=== PATIENT | male | born 1935 | race Caucasian/White ===

== ENCOUNTER 2017-06-04 11:18 | Emergency (ER) | payer OTHER ==
[2017-06-04] MEDS ORDERED: Sodium Chloride 0.9% 10 ML Syringe FLUSH PRN (11:47)
[2017-06-04] MEDS ORDERED: Dexamethasone 4 MG/ML SDV IVPUSH ONE (11:48)
[2017-06-04] MEDS ORDERED: HYDROmorphone 0.5 MG/0.5 ML Syringe IVPUSH ONE (11:48)
[2017-06-04] MEDS ORDERED: Cyclobenzaprine 10 MG Tab PO ONE (11:49)
--- NOTE | 2017-06-04 13:11 | EDM.PDOC ---
ED HPI GENERAL MEDICAL PROBLEM - General Chief Complaint: Back Pain or Injury Stated Complaint: LOW BACK/LEFT HIP PAIN Time Seen by Provider: 06/04/17 11:25 Source of Information: Reports: Patient History Limitations: Reports: No Limitations - History of Present Illness INITIAL COMMENTS - FREE TEXT/NARRATIVE: The patient presents with left low back pain. The patient has chronic low back pain. He had a steroid injection about 3 1/2 months ago. For the last few days , the pain has gotten worse. He does not remember a specific instance that he may have aggravated it. He has no numbness or weakness. He has no bowel or bladder problems. Onset: Gradual Duration: Week(s): Location: Reports: Back (Left) Quality: Reports: Sharp Severity: Moderate Improves with: Reports: Immobilization Worsens with: Reports: Movement Associated Symptoms: Reports: No Other Symptoms Left Hip Pain Score (Numeric/FACES): 10 - Related Data Allergies Allergy/AdvReac Type Severity Reaction Status Date / Time No Known Allergies Allergy Verified 05/19/17 07:10 Home Meds: Home Meds Allopurinol [Zyloprim] 1 tab PO BID 06/04/17 [History] Aspirin 1 tab PO DAILY 06/04/17 [History] Calcitriol [Rocaltrol] 1 tab PO ASDIRECTED 06/04/17 [History] Cholecalciferol (Vitamin D3) [Vitamin D3] 1 tab PO DAILY 06/04/17 [History] Cyclobenzaprine [Flexeril] 10 mg PO TID PRN #20 tablet 06/04/17 [Rx] FA/Lycopene/Lut/MV,Ca,Iron,Min [Centrum] 1 tab PO DAILY 06/04/17 [History] Lisinopril 1 tab PO DAILY 06/04/17 [History] Metoprolol Tartrate 25 mg PO BID 06/04/17 [History] Omeprazole 20 mg PO BIDAC 06/04/17 [History] Rosuvastatin Calcium 40 mg PO DAILY 06/04/17 [History] Tamsulosin [Flomax] 1 tab PO DAILY 06/04/17 [History] Thiamine Mononitrate [Vitamin B-1] 1 tab PO DAILY 06/04/17 [History] Past Medical History HEENT History: Reports: Hard of Hearing Cardiovascular History: Reports: Aneurysm, High Cholesterol, Hypertension Gastrointestinal History: Reports: GERD Genitourinary History: Reports: BPH Musculoskeletal History: Reports: Back Pain, Chronic, Gout - Past Surgical History Cardiovascular Surgical History: Reports: Aneurysm Social & Family History - Tobacco Use Smoking Status *Q: Never Smoker Second Hand Smoke Exposure: Yes - Caffeine Use Caffeine Use: Reports: Coffee - Recreational Drug Use Recreational Drug Use: No ED ROS GENERAL - Review of Systems Review Of Systems: See Below Constitutional: Reports: No Symptoms HEENT: Reports: No Symptoms Respiratory: Reports: No Symptoms Cardiovascular: Reports: No Symptoms Endocrine: Reports: No Symptoms GI/Abdominal: Reports: No Symptoms : Reports: No Symptoms Musculoskeletal: Reports: Back Pain (Left lower) Skin: Reports: No Symptoms ED EXAM,LOWER BACK PAIN/INJURY - Physical Exam Exam: See Below Exam Limited By: No Limitations General Appearance: Alert, No Apparent Distress Ears: Normal External Exam Throat/Mouth: Normal Inspection Head: Atraumatic, Normocephalic Neck: Normal Inspection Respiratory/Chest: No Respiratory Distress, Lungs Clear, Normal Breath Sounds Cardiovascular: Regular Rate, Rhythm, No Edema, No Murmur GI/Abdominal: Soft, Non-Tender, No Organomegaly, No Mass Back Exam: Other (Pain upon palpation to the left lower back) Neurological: Alert, No Motor/Sensory Deficits, Oriented x 3 Course - Vital Signs Last Recorded V/S: Last Vital Signs Temp 97.8 F 06/04/17 11:24 Pulse 72 06/04/17 11:24 Resp 18 06/04/17 11:24 BP 119/69 06/04/17 11:24 Pulse Ox 99 06/04/17 11:24 - Orders/Labs/Meds Orders: Active Orders 24 hr Category Date Time Status Peripheral IV Care [RC] . DIRECTED Care 06/04/17 11:47 Active Sodium Chloride 0.9% [Saline Flush] Med 06/04/17 11:47 Active 10 ml FLUSH ASDIRECTED PRN Peripheral IV Insertion Adult [OM.PC] Routine Oth 06/04/17 11:47 Ordered Medication Orders Sodium Chloride (Saline Flush) 10 ml FLUSH ASDIRECTED PRN PRN Reason: Keep Vein Open Last Admin: 06/04/17 12:09 Dose: 10 ml Meds: Medications Generic Name Dose Route Start Last Admin Trade Name Freq PRN Reason Stop Dose Admin Sodium Chloride 10 ml 06/04/17 11:47 06/04/17 12:09 Saline Flush FLUSH 10 ml ASDIRECTED PRN Administration Keep Vein Open Discontinued Medications Generic Name Dose Route Start Last Admin Trade Name Diane PRN Reason Stop Dose Admin Cyclobenzaprine HCl 10 mg 06/04/17 11:49 06/04/17 12:08 Flexeril PO 06/04/17 11:50 10 mg ONETIME ONE Administration Dexamethasone 8 mg 06/04/17 11:48 06/04/17 12:07 Dexamethasone IVPUSH 06/04/17 11:49 8 mg ONETIME ONE Administration Hydromorphone HCl 0.5 mg 06/04/17 11:48 Dilaudid IVPUSH 06/04/17 11:49 ONETIME ONE - Re-Assessments/Exams Free Text/Narrative Re-Assessment/Exam: 06/04/17 13:10 I ordered an IV saline lock, solu-medrol 125mg IV, dilaudid 0.5mg IV, and flexeril 10mg PO. He did good with the solu-medrol and flexeril. He did not want the dilaudid. Departure - Departure Time of Disposition: 13:15 Disposition: Home, Self-Care 01 Condition: Good Clinical Impression: Low back pain Qualifiers: Chronicity: chronic Back pain laterality: left Sciatica presence: with sciatica Sciatica laterality: sciatica of left side Qualified Code(s): M54.42 - Lumbago with sciatica, left side; G89.29 - Other chronic pain - Discharge Information Prescriptions: Cyclobenzaprine [Flexeril] 10 mg PO TID PRN #20 tablet PRN Reason: Pain Referrals: Yasir Alvarez MD [Primary Care Provider] - Additional Instructions: Take the flexeril every 8 hours as needed for low back pain as needed. Keep taking your other medications as prescribed. Please return if you are worse. Follow up with your doctor. - My Orders Last 24 Hours: My Active Orders 06/04/17 11:47 Peripheral IV Care [RC] . DIRECTED Sodium Chloride 0.9% [Saline Flush] 10 ml FLUSH ASDIRECTED PRN Peripheral IV Insertion Adult [OM.PC] Routine - Assessment/Plan Last 24 Hours: My Active Orders 06/04/17 11:47 Peripheral IV Care [RC] . DIRECTED Sodium Chloride 0.9% [Saline Flush] 10 ml FLUSH ASDIRECTED PRN Peripheral IV Insertion Adult [OM.PC] Routine
[2017-06-04] MEDS ORDERED: Acetaminophen/HYDROcodone 325-5 MG Tab PO ONE (14:00)
[2017-06-04 14:05] VITALS: BP 156/91
== END 2017-06-04 14:00 | disposition home or self-care (01) ==
LOC: EDSEX → JD.ED 11:18 → MERGE 11:18 → JD.ED 14:00
DX: M54.42 Lumbago with sciatica, left side (principal); G89.29 Other chronic pain; E78.00 Pure hypercholesterolemia, unspecified; I10 Essential (primary) hypertension; K21.9 Gastro-esophageal reflux disease without esophagitis; Z79.82 Long term (current) use of aspirin; Z79.899 Other long term (current) drug therapy
CPT/HCPCS: 96374; 99283; A9270; J1100; J7050

== ENCOUNTER 2018-10-27 16:29 | Inpatient (IN) | payer MEDICARE ==
--- NOTE | 2018-10-27 17:34 | EDM.PDOC ---
ED HPI GENERAL MEDICAL PROBLEM - General Chief Complaint: Neurological Problem Stated Complaint: [facility] Time Seen by Provider: 10/27/18 17:12 Source of Information: Reports: Family (Daughter), RN Notes Reviewed History Limitations: Reports: Physical Impairment (Patient has advanced dementia ) - History of Present Illness INITIAL COMMENTS - FREE TEXT/NARRATIVE: According to the patient's daughter, the patient has a history of both Parkinson disease and Alzheimer dementia. He has been falling nearly daily for the past 6 months, and daily for the past 2-3 weeks. He sometimes suffers skin tears. He fell again today, but appears to be uninjured. The daughter states that arrangements have been made for the patient to go to [facility], however, some additional paperwork to have Medicaid pay for it still needs to be done. The patient's daughter does not feel , however, that the patient can safely remain at home any longer. She cannot say specifically why she brought her father to the ED today, as opposed to yesterday or the day before, only that she does not feel that he can remain at home any longer. The patient's PCP is Dr. Alvarez. The patient's Neurologist is Dr. Carlin. Headache Pain Score (Numeric/FACES): 3 - Related Data Allergies Allergy/AdvReac Type Severity Reaction Status Date / Time No Known Allergies Allergy Verified 10/27/18 16:32 Home Meds: Home Meds Allopurinol [Zyloprim] 1 tab PO BID 06/04/17 [History] Aspirin 1 tab PO DAILY 06/04/17 [History] Calcitriol [Rocaltrol] 1 tab PO ASDIRECTED 06/04/17 [History] Cholecalciferol (Vitamin D3) [Vitamin D3] 1 tab PO DAILY 06/04/17 [History] Cyclobenzaprine [Flexeril] 10 mg PO TID PRN #20 tablet 06/04/17 [Rx] FA/Lycopene/Lut/MV,Ca,Iron,Min [Centrum] 1 tab PO DAILY 06/04/17 [History] Lisinopril 1 tab PO DAILY 06/04/17 [History] Metoprolol Tartrate 25 mg PO BID 06/04/17 [History] Omeprazole 20 mg PO BIDAC 06/04/17 [History] Rosuvastatin Calcium 40 mg PO DAILY 06/04/17 [History] Tamsulosin [Flomax] 1 tab PO DAILY 06/04/17 [History] Thiamine Mononitrate [Vitamin B-1] 1 tab PO DAILY 06/04/17 [History] Past Medical History Cardiovascular History: Reports: Aneurysm (AAA, s/p graft), High Cholesterol, Hypertension Gastrointestinal History: Reports: GERD Genitourinary History: Reports: BPH Musculoskeletal History: Reports: Arthritis, Back Pain, Chronic, Gout Neurological History: Reports: Alzheimers Disease, Parkinson's - Infectious Disease History Infectious Disease History: Reports: Chicken Pox, Measles, Mumps - Past Surgical History Cardiovascular Surgical History: Reports: AAA Repair (graft) Neurological Surgical History: Reports: Laminectomy (lumbar) Social & Family History - Tobacco Use Smoking Status *Q: Former Smoker (smoked in his 20s) - Caffeine Use Caffeine Use: Reports: Coffee - Alcohol Use Alcohol Use History: Yes Alcohol Use Frequency: Rarely - Recreational Drug Use Recreational Drug Use: No - Living Situation & Occupation Living situation: Reports: , with Family (Daughter) Occupation: Retired ED ROS GENERAL - Review of Systems Review Of Systems: ROS reveals no pertinent complaints other than HPI. ED EXAM, GENERAL - Physical Exam Exam: See Below Exam Limited By: No Limitations General Appearance: WD/WN, No Apparent Distress, Other (Somnolent but arousable. Fell asleep during my examination.) Eye Exam: Bilateral Eye: EOMI, Normal Inspection Ears: Normal External Exam Nose: Normal Inspection Throat/Mouth: Normal Inspection, Normal Lips, No Airway Compromise Head: Atraumatic, Normocephalic Neck: Normal Inspection Respiratory/Chest: No Respiratory Distress, Lungs Clear, Normal Breath Sounds, No Accessory Muscle Use Cardiovascular: Normal Peripheral Pulses, No Gallop, No JVD, No Murmur, No Rub, Irregularly Irregular (regular rate) Peripheral Pulses: 4+: Radial (L), Radial (R) GI/Abdominal: Normal Bowel Sounds, Soft, Non-Tender, No Organomegaly, No Distention, No Abnormal Bruit, No Mass (Male) Exam: Deferred Rectal (Males) Exam: Deferred Extremities: Normal Inspection, Normal Range of Motion, Normal Capillary Refill Neurological: Inattentive, Confused, Other (Somnolent, but arousable) Psychiatric: Other (Unable to assess) Skin Exam: Warm, Dry, Normal Color, No Rash Course - Vital Signs Last Recorded V/S: Last Vital Signs Temp 36.2 C 10/27/18 16:37 Pulse 60 10/27/18 16:37 Resp 16 10/27/18 16:37 BP 133/77 10/27/18 16:37 Pulse Ox 100 10/27/18 16:37 - Orders/Labs/Meds Orders: Active Orders 24 hr Category Date Time Status Urinary Catheter Assessment [RC] ASDIRECTED Care 10/27/18 18:37 Active Urinary Catheter Insertion [Insert Urinary Catheter] [ Care 10/27/18 18:45 Ordered OM.PC] Q24H Labs: Laboratory Tests 10/27/18 Range/Units 18:36 Urine Color Yellow (Yellow) Urine Appearance Clear (Clear) Urine pH 6.0 (5.0-8.0) Ur Specific [place] 1.025 (1.005-1.030) Urine Protein Trace H (Negative) Urine Glucose (UA) Negative (Negative) Urine Ketones Negative (Negative) Urine Occult Blood Negative (Negative) Urine Nitrite Negative (Negative) Urine Bilirubin Negative (Negative) Urine Urobilinogen 1.0 (0.2-1.0) Ur Leukocyte Esterase Negative (Negative) Urine RBC 0-5 (0-5) /hpf Urine WBC 0-5 (0-5) /hpf Ur Epithelial Cells 0-5 (0-5) /hpf Urine Bacteria Occasional (FEW) /hpf Urine Mucus Few (FEW) /hpf - Re-Assessments/Exams Free Text/Narrative Re-Assessment/Exam: 10/27/18 17:33 The patient's daughter had the patient brought to the ED for group home placement, due to increasingly frequent falls and unsafe conditions at home. There are no acute medical issues, and I see no need for any tests to be done at this time. Unfortunately, our hospital social worker, [place], has likely left for the day. We will see if we can contact her by phone, to see what might be able to be done tonight. 10/27/18 18:22 [place] the hospital social worker came in and evaluated the patient, and discussed the case with Dr. Rose. Dr. Rose would like us to obtain a CT scan of the head and a urinalysis by quick catheter. 10/27/18 19:26 CT of the head without contrast is read by Dr. Maier as: 1. Acute subdural hematoma superimposed upon chronic left-sided subdural hematoma. This is an interval change from prior head CT study. This finding causes mild midline shift of approximately 7 mm. Thickness of the subdural collection is approximately 1 cm. 2. Senescent change as noted above which is similar to prior head CT study. 3. Increasing mucosal thickening within the paranasal sinuses most likely due to worsening chronic sinusitis. The urinalysis is normal. 10/27/18 19:[address] images, as well as those from 08/07/2018, as well as Dr. Maier's report from 08/07/2018. At that time, the patient's CT found only senescent changes with no acute abnormalities. There was no subdural hematoma. Today's CT scan shows an acute on chronic subdural hematoma, although the chronic portion appears to have occurred since 08/07/2018. I discussed the CT findings with the patient's daughter, Saskia Nguyen, at 19: 38. She would like me to discuss the case with a Neurosurgeon at [facility], to see if the patient would be a surgical candidate, and, if so, to have the patient transported the patient to [facility]. If the Neurosurgeon declines, then the patient will be placed into observation at this facility, as originally planned. I then had the CT images pushed to [facility]. 10/27/18 19:57 Case discussed with Benjamin at [facility] at 19:38. Case then discussed with Dr. Matamoros, Neurosurgeon at [facility], at 19:45. The CT images were not yet available to him, however, based on the description of the patient and his CT, he did not think the patient would likely be a good candidate for neurosurgery, however, he wanted to see the images before making a final decision. 10/27/18 20:[address] Matamoros at 20:07. He did not feel that neurosurgery would benefit the patient. He noted that while there is some new and old blood, the majority of the blood is old. He felt that the patient would likely have difficulty with the anesthesia, and then would not be able to participate meaningfully with his recovery. He felt that the most important thing was to keep the patient from falling and hitting his head. He suggested that a repeat CT scan could be performed in a week, to see if there is any change, but he felt that even if the patient were transferred to their facility, he would only recommend observing the patient for a week. The above was then discussed with the patient's daughter, Saskia, at 20:09. She expressed understanding. We will proceed with the original plan of reason the patient into observation here. 10/27/18 20:[address] Rose at 20:15. He accepted the patient for placement into observation. 10/27/18 20:19 Departure - Departure Time of Disposition: 20:19 Disposition: Refer to Observation Clinical Impression: Failure to thrive in adult, Fall at home, Dementia, Acute on chronic intracranial subdural hematoma, Parkinson disease - Discharge Information *PRESCRIPTION DRUG MONITORING PROGRAM REVIEWED*: Not Applicable *COPY OF PRESCRIPTION DRUG MONITORING REPORT IN PATIENT TRE: Not Applicable Referrals: Yasir Alvarez MD [Primary Care Provider] - Forms: ED Department Discharge - My Orders Last 24 Hours: My Active Orders 10/27/18 18:37 Urinary Catheter Assessment [RC] ASDIRECTED 10/27/18 18:45 Urinary Catheter Insertion [Insert Urinary Catheter] [OM.PC] Q24H - Assessment/Plan Last 24 Hours: My Active Orders 10/27/18 18:37 Urinary Catheter Assessment [RC] ASDIRECTED 10/27/18 18:45 Urinary Catheter Insertion [Insert Urinary Catheter] [OM.PC] Q24H
--- NOTE | 2018-10-27 19:06 | CT ---
Head CT Technique: Multiple axial sections through the brain were obtained. Intravenous contrast was utilized. Comparison: Previous head CT study of 08/07/18. Findings: Acute blood is seen in a subpleural location within the left brain. There is also chronic low density subdural hematoma being seen. Overall thickness of this finding is approximately 1 cm. Mild midline shift is seen by approximately 7 mm. Ventricles along with basal cisterns and sulci over the convexities are moderately prominent. Diminished density is noted within portions of the periventricular white matter compatible with small vessel ischemic demyelination change. Old lacunar infarcts are noted within the basal ganglia. No other abnormal parenchymal densities are seen. Diffuse atherosclerotic calcification is seen within the left vertebral vessel as well as within the carotid siphon. Bone window settings were reviewed which shows mild mucosal thickening within the ethmoid and maxillary sinuses as well as mucosal thickening within the right frontal sinus. No acute calvarial abnormality is seen. Impression: 1. Acute subdural hematoma superimposed upon chronic left-sided subdural hematoma. This is an interval change from prior head CT study. This finding causes mild midline shift of approximately 7 mm. Thickness of the subdural collection is approximately 1 cm. 2. Senescent change as noted above which is similar to prior head CT study. 3. Increasing mucosal thickening within the paranasal sinuses most likely due to worsening chronic sinusitis. Diagnostic code #5
--- NOTE | 2018-10-27 21:27 | PCM.HP ---
H&P History of Present Illness - General Date of Service: 10/27/18 Admit Problem/Dx: Admission Diagnosis/Problem Admission Diagnosis/Problem Failure to thrive in adult Source of Information: Family, Provider History Limitations: Reports: Altered Mental Status (h/o Alzheimers) - History of Present Illness Initial Comments - Free Text/Narative: This is a 83 yo male with past medical h/o Alzheimer's Dementia, Parkinson's, AAA s/p graft, HTN, HLD, GERD, BPH, Arthritis, Back pain, Gout who comes in for subdural hematoma and failure to thrive. History obtained in ED from daughter. No current symptoms. Pt falls nearly daily x 6 months, daily x 2-3 weeks. Pt is set up to go to [facility], but is awaiting Medicaid paperwork. The pt's daughter doesn't feel he can safely remain at home any longer. His initial workup in the ED shows CT head shows acute subdural hematoma superimposed upon chronic left-sided subdural hematoma. UA unimpressive for UTI. He is subsequently admitted to the medical floor for Observation. He is a DNR/ DNI. PCP is Dr. Alvarez. Headache Pain Score (Numeric/FACES): 3 - Related Data Allergies/Adverse Reactions: Allergies Allergy/AdvReac Type Severity Reaction Status Date / Time No Known Allergies Allergy Verified 10/27/18 16:32 Home Medications: Home Meds Allopurinol [Zyloprim] 1 tab PO BID 06/04/17 [History] Aspirin 1 tab PO DAILY 06/04/17 [History] Calcitriol [Rocaltrol] 1 tab PO ASDIRECTED 06/04/17 [History] Cholecalciferol (Vitamin D3) [Vitamin D3] 1 tab PO DAILY 06/04/17 [History] Cyclobenzaprine [Flexeril] 10 mg PO TID PRN #20 tablet 06/04/17 [Rx] FA/Lycopene/Lut/MV,Ca,Iron,Min [Centrum] 1 tab PO DAILY 06/04/17 [History] Lisinopril 1 tab PO DAILY 06/04/17 [History] Metoprolol Tartrate 25 mg PO BID 06/04/17 [History] Omeprazole 20 mg PO BIDAC 06/04/17 [History] Rosuvastatin Calcium 40 mg PO DAILY 06/04/17 [History] Tamsulosin [Flomax] 1 tab PO DAILY 06/04/17 [History] Thiamine Mononitrate [Vitamin B-1] 1 tab PO DAILY 06/04/17 [History] Past Medical History HEENT History: Reports: Hard of Hearing Cardiovascular History: Reports: Aneurysm (AAA, s/p graft), High Cholesterol, Hypertension Gastrointestinal History: Reports: GERD Genitourinary History: Reports: BPH Musculoskeletal History: Reports: Arthritis, Back Pain, Chronic, Gout Neurological History: Reports: Alzheimers Disease, Parkinson's Other Neuro History: frequent falls and multiple times hitting head. Many falls unwitnessed. Daughter expressing concerns of pt's safety living at home Dermatologic History: Reports: Other (See Below) Other Dermatologic History: multiple small skin tears - Infectious Disease History Infectious Disease History: Reports: Chicken Pox, Measles, Mumps - Past Surgical History Cardiovascular Surgical History: Reports: AAA Repair (graft) Neurological Surgical History: Reports: Laminectomy (lumbar) Social & Family History - Tobacco Use Smoking Status *Q: Former Smoker (smoked in his 20s) - Caffeine Use Caffeine Use: Reports: Coffee - Recreational Drug Use Recreational Drug Use: No - Living Situation & Occupation Living situation: Reports: , with Family (Daughter) Occupation: Retired H&P Review of Systems - Review of Systems: Review Of Systems: Unable To Obtain (pt is confused d/t Alzheimer's) Psychiatric: Reports: Confusion Neurological: Reports: Confusion Exam - Exam Exam: See Below - Vital Signs Vital Signs: Last Vital Signs Temp 97.1 F 10/27/18 16:37 Pulse 83 10/27/18 20:30 Resp 15 10/27/18 20:30 BP 127/88 10/27/18 20:30 Pulse Ox 100 10/27/18 20:30 Weight: 195 lb - Exam Quality Assessment: DVT Prophylaxis General: Alert, Lethargic HEENT: Conjunctiva Clear, EACs Clear, EOMI, Hearing Intact, Mucosa Moist & [place] , Nares Patent, Normal Nasal Septum, Posterior Pharynx Clear, PERRLA Neck: Supple, Trachea Midline, 2 Lungs: Clear to Auscultation, Normal Respiratory Effort Cardiovascular: Regular Rate, Irregular Rhythm GI/Abdominal Exam: Normal Bowel Sounds, Soft, Non-Tender, No Organomegaly, No Distention, No Abnormal Bruit, No Mass, Pelvis Stable (Male) Exam: Deferred Rectal (Males) Exam: Deferred Back Exam: Normal Inspection Extremities: Normal Inspection, Normal Range of Motion, Non-Tender, No Pedal Edema, Normal Capillary Refill Peripheral Pulses: 4+: Posterior Tibial (L), Posterior Tibial (R), Dorsalis Pedis (L), Dorsalis Pedis (R) Skin: Warm (Confused, Lethargic), Dry, Intact Psychiatric: Alert, Other (Confused, Lethargic) - Patient Data Lab Results Last 24 hrs: Laboratory Results - last 24 hr 10/27/18 Range/Units 18:36 Urine Color Yellow (Yellow) Urine Appearance Clear (Clear) Urine pH 6.0 (5.0-8.0) Ur Specific [place] 1.025 (1.005-1.030) Urine Protein Trace H (Negative) Urine Glucose (UA) Negative (Negative) Urine Ketones Negative (Negative) Urine Occult Blood Negative (Negative) Urine Nitrite Negative (Negative) Urine Bilirubin Negative (Negative) Urine Urobilinogen 1.0 (0.2-1.0) Ur Leukocyte Esterase Negative (Negative) Urine RBC 0-5 (0-5) /hpf Urine WBC 0-5 (0-5) /hpf Ur Epithelial Cells 0-5 (0-5) /hpf Urine Bacteria Occasional (FEW) /hpf Urine Mucus Few (FEW) /hpf - Problem List (1) Acute on chronic intracranial subdural hematoma SNOMED Code(s): 87281840 ICD Code: I62.01 - NONTRAUMATIC ACUTE SUBDURAL HEMORRHAGE; I62.03 - NONTRAUMATIC CHRONIC SUBDURAL HEMORRHAGE Status: Acute Priority: High Current Visit: Yes (2) Dementia SNOMED Code(s): 16995787 ICD Code: F03.90 - UNSPECIFIED DEMENTIA WITHOUT BEHAVIORAL DISTURBANCE Status: Chronic Priority: Medium Current Visit: Yes Qualifiers: Dementia type: Alzheimer's disease Alzheimer's disease onset: unspecified onset Dementia behavioral disturbance: without behavioral disturbance Qualified Code(s): G30.9 - Alzheimer's disease, unspecified; F02.80 - Dementia in other diseases classified elsewhere without behavioral disturbance (3) Failure to thrive in adult SNOMED Code(s): 978081801 ICD Code: R62.7 - ADULT FAILURE TO THRIVE Status: Acute Priority: High Current Visit: Yes (4) Fall at home SNOMED Code(s): 74145822 ICD Code: W19.XXXA - UNSPECIFIED FALL, INITIAL ENCOUNTER; Y92.009 - UNSP PLACE IN UNSP NON-INSTITUT (PRIVATE) RESIDENCE PLACE Status: Acute Priority: High Current Visit: Yes Qualifiers: Encounter type: initial encounter Qualified Code(s): W19.XXXA - Unspecified fall, initial encounter; Y92.009 - Unspecified place in unspecified non-institutional (private) residence as the place of occurrence of the external cause (5) Parkinson disease SNOMED Code(s): 24654826 ICD Code: G20 - PARKINSON'S DISEASE Status: Chronic Priority: Medium Current Visit: Yes Problem List Initiated/Reviewed/Updated: Yes Orders Last 24hrs: Active Orders 24 hr Category Date Time Status Admission Status [Patient Status] [ADT] Routine ADT 10/27/18 20:49 Active Urinary Catheter Insertion [Insert Urinary Catheter] [ Care 10/27/18 18:45 Ordered OM.PC] Q24H Assessment/Plan Comment:: Assessment/Plan: Acute: Subdural Hematoma * Acute on Chronic (chronic portion appears to have occurred after previous CT on 08/07/2018) * Risk Factor: Parkinson's, Falls nearly daily x 6 months, daily x 2-3 weeks * CT head in ED: * 1. Acute subdural hematoma superimposed upon chronic left-sided subdural hematoma. This is an interval change from prior head CT study. This finding causes mild midline shift of approximately 7 mm. Thickness of the subdural collection is approximately 1 cm. * 2. Senescent change as noted above which is similar to prior head CT study. * 3. Increasing mucosal thickening within the paranasal sinuses most likely due to worsening chronic sinusitis. * Case discussed with Dr. Matamoros, Neurosurgeon at [facility] in ED: * Pt not good candidate for neurosurgery--> Pt would likely have difficulty w/ anesthesia and wouldn't be able to participate meaningfully w/ his recovery * Majority of the blood seems to be old * Most important thing is to keep pt from falling and hitting his head * Repeat CT scan in 1 week * Fall precautions; Up with assistance Failure to Thrive * Risk Factors: Alzheimer's Dementia, Parkinson's * Falls nearly daily x 6 months, daily x 2-3 weeks * Pt is set up to go to [facility], awaiting Medicaid paperwork * The pt's daughter doesn't feel he can safely remain at home any longer * PT/OT * CM/SW Chronic: Alzheimer's Dementia Parkinson's AAA s/p graft HTN HLD GERD BPH Arthritis Back pain Gout Plan: Admit to Observation Routine AM Labs DVT/GI prophylaxis CM/SW PT/OT Code Status: DNR/DNI; PCP: Dr. Alvarez The patient's Neurologist is Dr. Carlin
[2018-10-27] MEDS ORDERED: Promethazine 25 MG Tab PO PRN (21:52)
[2018-10-27] MEDS ORDERED: Promethazine 6.25 MG in Sodium Chloride 0.9% 50 ML IV PRN (21:52)
[2018-10-27] MEDS ORDERED: Bisacodyl 5 MG Tab PO PRN (21:55)
[2018-10-27] MEDS ORDERED: Polyethylene Glycol 3350 Powder 17 GM Packet PO PRN (21:55)
[2018-10-27] MEDS ORDERED: Magnesium Hydroxide 400 MG/5 ML Susp 30 ML Cup PO PRN (21:55)
[2018-10-27] MEDS ORDERED: Calcitriol 0.25 MCG Cap PO SCH (22:00)
[2018-10-28] MEDS: Pantoprazole 40 MG Tab.CR PO SCH (06:30)
[2018-10-28] MEDS: Tamsulosin 0.4 MG Cap.ER PO SCH (08:42)
[2018-10-28] MEDS: Metoprolol Tartrate 25 MG Tab PO SCH ×3 (08:42→21:45)
[2018-10-28] MEDS: Allopurinol 100 MG Tab PO SCH ×3 (08:43→21:46)
[2018-10-28] MEDS: Calcitriol 0.25 MCG Cap PO SCH (08:43)
[2018-10-28] MEDS: Thiamine 100 MG Tab PO SCH (08:43)
[2018-10-28] MEDS: Lisinopril 5 MG Tab PO SCH (08:43)
[2018-10-28] MEDS: Cholecalciferol (Vitamin D3) 1,000 Unit Tab PO SCH (08:44)
[2018-10-28] MEDS: Multivitamins with Minerals/Folic Acid/Lutein/Zeaxanth Tab PO SCH (08:44)
[2018-10-28] MEDS: Rosuvastatin 10 MG Tab PO SCH (08:44)
[2018-10-28] MEDS: Potassium Chloride 20 MEQ Tab.ER PO SCH ×3 (11:42→21:45)
--- NOTE | 2018-10-28 15:59 | PCM.PN ---
- General Info Date of Service: 10/28/18 Admission Dx/Problem (Free Text): Admission Diagnosis/Problem Admission Diagnosis/Problem Failure to thrive in adult Subjective Update: In to see Олег. He is sitting up in a chair sleeping. He is difficult to arouse and when I ask him questions or ask him to open his eyes, he is very lethargic and confused. Eventually with the help of nursing we were able to get him to be more responsive and we were able to help assist him into bed. He then look much more comfortable. Unable to attain ROS d/t his current state. I called his daughter Saskia to tell her of his current state, and she said that this was about the time that he sundowns and these are all normal behaviors for him. I also went over his code status with her, as he had told nursing last night he was a Full Code. She was able to go through her records at home and found that he is actually a DNR/DNI. Code status will therefore be changed. No other concerns from nursing at this time. [place] from states that [facility] has refused to accept him to their facility. She will start looking into other options as this time as he is unable to go home at this time and is unable to be taken care of. Functional Status: Reports: Pain Controlled, Tolerating Diet, Ambulating (with assistance with walker), Urinating - Review of Systems Neurological: Reports: Confusion Psychiatric: Reports: Confusion Systems Review Comment:: Unable to obtain d/t confusion/sun-downing - Patient Data Vitals - Most Recent: Last Vital Signs Temp 98.4 F 10/28/18 12:59 Pulse 65 10/28/18 12:59 Resp 20 10/28/18 12:59 BP 121/66 10/28/18 12:59 Pulse Ox 98 10/28/18 12:59 Weight - Most Recent: 174 lb 3.2 oz I&O - Last 24 Hours: Intake & Output 10/28/18 10/28/18 10/28/18 06:59 14:59 22:59 Intake Total 800 600 Output Total 300 Balance 500 600 Lab Results Last 24 Hours: Laboratory Results - last 24 hr 10/27/18 10/28/18 10/28/18 Range/Units 18:36 05:59 05:59 WBC 5.53 (4.23-9.07) K/mm3 RBC 3.73 L (4.63-6.08) M/mm3 Hgb 11.3 L (13.7-17.5) gm/L Hct 34.9 L (40.1-51.0) % MCV 93.6 H (79.0-92.2) fl MCH 30.3 (25.7-32.2) pg MCHC 32.4 (32.2-35.5) g/dl RDW Std Deviation 48.1 H (35.1-43.9) fL Plt Count 247 (163-337) K/mm3 MPV 9.6 (9.4-12.3) fl Neut % (Auto) 63.5 (34.0-67.9) % Lymph % (Auto) 22.1 (21.8-53.1) % [place] % (Auto) 10.5 (5.3-12.2) % Eos % (Auto) 2.9 (0.8-7.0) Baso % (Auto) 0.5 (0.1-1.2) % Neut # (Auto) 3.51 (1.78-5.38) K/mm3 Lymph # (Auto) 1.22 L (1.32-3.57) K/mm3 [place] # (Auto) 0.58 (0.30-0.82) K/mm3 Eos # (Auto) 0.16 (0.04-0.54) K/mm3 Baso # (Auto) 0.03 (0.01-0.08) K/mm3 Sodium 146 H (136-145) mEq/L Potassium 2.9 L (3.5-5.1) mEq/L Chloride 110 H (98-107) mEq/L Carbon Dioxide 26 (21-32) mEq/L Anion Gap 12.9 (5-15) BUN 20 H (7-18) mg/dL Creatinine 0.9 (0.7-1.3) mg/dL Est Cr Clr Drug Dosing 68.26 mL/min Estimated GFR (MDRD) > 60 (>60) mL/min BUN/Creatinine Ratio 22.2 H (14-18) Glucose 84 (83-115) mg/dL Calcium 8.8 (8.5-10.1) mg/dL Magnesium 1.9 (1.8-2.4) mg/dl Urine Color Yellow (Yellow) Urine Appearance Clear (Clear) Urine pH 6.0 (5.0-8.0) Ur Specific [place] 1.025 (1.005-1.030) Urine Protein Trace H (Negative) Urine Glucose (UA) Negative (Negative) Urine Ketones Negative (Negative) Urine Occult Blood Negative (Negative) Urine Nitrite Negative (Negative) Urine Bilirubin Negative (Negative) Urine Urobilinogen 1.0 (0.2-1.0) Ur Leukocyte Esterase Negative (Negative) Urine RBC 0-5 (0-5) /hpf Urine WBC 0-5 (0-5) /hpf Ur Epithelial Cells 0-5 (0-5) /hpf Urine Bacteria Occasional (FEW) /hpf Urine Mucus Few (FEW) /hpf Med Orders - Current: Current Medications Acetaminophen (Tylenol) 650 mg PO Q4H PRN PRN Reason: Pain (Mild 1-3)/fever Allopurinol (Zyloprim) 100 mg PO BID [facility] Last Admin: 10/28/18 08:43 Dose: 100 mg Bisacodyl (Dulcolax) 5 mg PO DAILY PRN PRN Reason: Constipation Calcitriol (Rocaltrol) 0.25 mcg PO SuTh@0900 [facility] Last Admin: 10/28/18 08:43 Dose: 0.25 mcg Cholecalciferol (Vitamin D3) 2,000 units PO DAILY [facility] Last Admin: 10/28/18 08:44 Dose: 2,000 units Cyclobenzaprine HCl (Flexeril) 10 mg PO TID PRN PRN Reason: Muscle Spasm Docusate Sodium (Colace) 100 mg PO BID PRN PRN Reason: Constipation Promethazine HCl 6.25 mg/ (Sodium Chloride) 50.25 mls @ 100 mls/hr IV Q6H PRN PRN Reason: Nausea/Vomiting Lisinopril (Prinivil) 5 mg PO DAILY [facility] Last Admin: 10/28/18 08:43 Dose: 5 mg Magnesium Hydroxide (Milk Of Magnesia) 30 ml PO Q12H PRN PRN Reason: Constipation Magnesium Sulfate (Pharmacy To Dose - Magnesium Replacement) 0 dose .XX ASDIRECTED PRN PRN Reason: RX TO WATCH MAG Metoprolol Tartrate (Lopressor) 25 mg PO BID [facility] Last Admin: 10/28/18 08:42 Dose: 25 mg Pantoprazole Sodium (Protonix) 40 mg PO ACBREAKFAST [facility] Last Admin: 10/28/18 06:30 Dose: 40 mg Polyethylene Glycol (Miralax) 17 gm PO DAILY PRN PRN Reason: Constipation Potassium Chloride (Pharmacy To Dose - Potassium Replacement) 0 dose .XX ASDIRECTED PRN PRN Reason: RX TO WATCH K Potassium Chloride (Klor-Con M20) 40 meq PO BID [facility] Stop: 10/28/18 21:01 Last Admin: 10/28/18 11:42 Dose: 40 meq Promethazine HCl (Phenergan) 25 mg PO Q6H PRN PRN Reason: Nausea/Vomiting Rosuvastatin Calcium (Crestor) 40 mg PO DAILY [facility] Last Admin: 10/28/18 08:44 Dose: 40 mg Senna/Docusate Sodium (Senna Plus) 1 tab PO BID PRN PRN Reason: Constipation Tamsulosin HCl (Flomax) 0.4 mg PO DAILY [facility] Last Admin: 10/28/18 08:42 Dose: 0.4 mg Thiamine HCl (Vitamin B-1) 100 mg PO DAILY [facility] Last Admin: 10/28/18 08:43 Dose: 100 mg Vit A/Vit C/Vit E/Selen/Cu/Zn/Lutei (Icaps Mv) 1 tab PO DAILY [facility] Last Admin: 10/28/18 08:44 Dose: 1 tab Discontinued Medications Calcitriol (Rocaltrol) 0.25 mcg PO ASDIRECTED [facility] - Exam Quality Assessment: DVT Prophylaxis General: Alert (intermittently), Lethargic HEENT: Pupils Equal, Pupils Reactive, EOMI, Mucous Membr. Moist/[place] Neck: Supple Lungs: Clear to Auscultation, Normal Respiratory Effort Cardiovascular: Regular Rate, Irregular Rhythm GI/Abdominal Exam: Normal Bowel Sounds, Soft, Non-Tender, No Organomegaly, No Distention, No Abnormal Bruit, No Mass, Pelvis Stable (Male) Exam: Deferred Back Exam: Normal Inspection Extremities: Normal Inspection, Normal Range of Motion, Non-Tender, No Pedal Edema, Normal Capillary Refill Peripheral Pulses: 4+: Posterior Tibial (L), Posterior Tibial (R), Dorsalis Pedis (L), Dorsalis Pedis (R) Skin: Warm, Dry, Intact Neurological: No New Focal Deficit Psy/Mental Status: Alert (intermittently), Other (confused, lethargic) - Problem List & Annotations (1) Acute on chronic intracranial subdural hematoma SNOMED Code(s): 05208425 Code(s): I62.01 - NONTRAUMATIC ACUTE SUBDURAL HEMORRHAGE; I62.03 - NONTRAUMATIC CHRONIC SUBDURAL HEMORRHAGE Status: Acute Priority: High Current Visit: Yes (2) Dementia SNOMED Code(s): 46715720 Code(s): F03.90 - UNSPECIFIED DEMENTIA WITHOUT BEHAVIORAL DISTURBANCE Status: Chronic Priority: Medium Current Visit: Yes Qualifiers: Dementia type: Alzheimer's disease Alzheimer's disease onset: unspecified onset Dementia behavioral disturbance: without behavioral disturbance Qualified Code(s): G30.9 - Alzheimer's disease, unspecified; F02.80 - Dementia in other diseases classified elsewhere without behavioral disturbance (3) Failure to thrive in adult SNOMED Code(s): 058125658 Code(s): R62.7 - ADULT FAILURE TO THRIVE Status: Acute Priority: High Current Visit: Yes (4) Fall at home SNOMED Code(s): 32853100 Code(s): W19.XXXA - UNSPECIFIED FALL, INITIAL ENCOUNTER; Y92.009 - UNSP PLACE IN UNSP NON-INSTITUT (PRIVATE) RESIDENCE PLACE Status: Acute Priority: High Current Visit: Yes Qualifiers: Encounter type: initial encounter Qualified Code(s): W19.XXXA - Unspecified fall, initial encounter; Y92.009 - Unspecified place in unspecified non-institutional (private) residence as the place of occurrence of the external cause (5) Parkinson disease SNOMED Code(s): 44223580 Code(s): G20 - PARKINSON'S DISEASE Status: Chronic Priority: Medium Current Visit: Yes - Problem List Review Problem List Initiated/Reviewed/Updated: Yes - My Orders Last 24 Hours: My Active Orders 10/27/18 21:52 Height and Weight [RC] 04 Intake and Output [RC] 04,16 May Shower [RC] ASDIRECTED Oxygen Therapy [RC] PRN Up With Assistance [RC] ASDIRECTED VTE/DVT Education [RC] 10,22 Vital Signs [RC] Q4HR Consult to Case Management/[employer]ppers[employer] Helper [CONS] Routine OT Evaluation and Treatment [CONS] Routine PT Evaluation and Treatment [CONS] Routine Promethazine [Phenergan] 25 mg PO Q6H PRN Promethazine [Phenergan] 6.25 mg Sodium Chloride 0.9% [Normal Saline] 50 ml IV Q6H 10/27/18 21:53 Antiembolic Devices [RC] BID Sequential Compression Device [OM.PC] Per Unit Routine 10/27/18 21:55 Acetaminophen [Tylenol] 650 mg PO Q4H PRN Bisacodyl [Dulcolax] 5 mg PO DAILY PRN Docusate Sodium [Colace] 100 mg PO BID PRN Docusate Sodium/Sennosides [Senna Plus] 1 tab PO BID PRN Magnesium Hydroxide [Milk of Magnesia] 30 ml PO Q12H PRN Polyethylene Glycol 3350 [MiraLAX] 17 gm PO DAILY PRN 10/27/18 22:00 Code Status [Resuscitation Status] Routine 10/27/18 22:06 Cyclobenzaprine [Flexeril] 10 mg PO TID PRN 10/28/18 06:00 Pantoprazole [ProTONIX] 40 mg PO ACBREAKFAST 10/28/18 09:00 Allopurinol [Zyloprim] 100 mg PO BID Calcitriol [Rocaltrol] 0.25 mcg PO SuTh@0900 Cholecalciferol (Vitamin D3) [Vitamin D3] 2,000 units PO DAILY Lisinopril [Prinivil] 5 mg PO DAILY Metoprolol Tartrate [Lopressor] 25 mg PO BID Multivitamins/Min/FA/Lut/Zeax [ICaps MV] 1 tab PO DAILY Rosuvastatin [Crestor] 40 mg PO DAILY Tamsulosin [Flomax] 0.4 mg PO DAILY Thiamine [Vitamin B-1] 100 mg PO DAILY 10/28/18 Breakfast Heart Healthy Diet [DIET] 10/29/18 05:11 BASIC METABOLIC PANEL,BMP [CHEM] AM CBC WITH AUTO DIFF [HEME] AM MAGNESIUM [CHEM] AM 10/30/18 05:11 BASIC METABOLIC PANEL,BMP [CHEM] AM CBC WITH AUTO DIFF [HEME] AM MAGNESIUM [CHEM] AM 10/31/18 05:11 BASIC METABOLIC PANEL,BMP [CHEM] AM CBC WITH AUTO DIFF [HEME] AM MAGNESIUM [CHEM] AM 11/01/18 05:11 BASIC METABOLIC PANEL,BMP [CHEM] AM CBC WITH AUTO DIFF [HEME] AM MAGNESIUM [CHEM] AM - Plan Plan:: Assessment/Plan: Acute: Subdural Hematoma * Acute on Chronic (chronic portion appears to have occurred after previous CT on 08/07/2018) * Risk Factor: Parkinson's, Falls nearly daily x 6 months, daily x 2-3 weeks * CT head in ED: * 1. Acute subdural hematoma superimposed upon chronic left-sided subdural hematoma. This is an interval change from prior head CT study. This finding causes mild midline shift of approximately 7 mm. Thickness of the subdural collection is approximately 1 cm. * 2. Senescent change as noted above which is similar to prior head CT study. * 3. Increasing mucosal thickening within the paranasal sinuses most likely due to worsening chronic sinusitis. * Case discussed with Dr. Matamoros, Neurosurgeon at [facility] in ED: * Pt not good candidate for neurosurgery--> Pt would likely have difficulty w/ anesthesia and wouldn't be able to participate meaningfully w/ his recovery * Majority of the blood seems to be old * Most important thing is to keep pt from falling and hitting his head * Repeat CT scan in 1 week * Fall precautions; Up with assistance Failure to Thrive * Risk Factors: Alzheimer's Dementia, Parkinson's * Falls nearly daily x 6 months, daily x 2-3 weeks * Pt is set up to go to [facility], awaiting Medicaid paperwork--> [facility] has now declined placement * The pt's daughter doesn't feel he can safely remain at home any longer * PT/OT * CM/SW--> working on placement to SNF Chronic: Alzheimer's Dementia Parkinson's AAA s/p graft HTN HLD GERD BPH Arthritis Back pain Gout Plan: Admit to Observation Routine AM Labs DVT/GI prophylaxis CM/SW PT/OT Code Status: DNR/DNI; PCP: Dr. Alvarez The patient's Neurologist is Dr. Carlin D/C Plan: * Repeat CT scan
[2018-10-28] MEDS: Acetaminophen 325 MG Tab PO PRN (19:37)
[2018-10-28] MEDS ORDERED: Donepezil 10 MG Tab PO ONE (20:30)
[2018-10-28] MEDS ORDERED: Carbidopa/Levodopa 25-100 MG Tab PO ONE (20:30)
[2018-10-28] MEDS: Cyclobenzaprine 10 MG Tab PO PRN (21:37)
[2018-10-29] MEDS: Carbidopa/Levodopa 25-100 MG Tab PO SCH ×6 (05:05→22:02)
[2018-10-29] MEDS: Pantoprazole 40 MG Tab.CR PO SCH (05:29)
[2018-10-29] MEDS: Acetaminophen 325 MG Tab PO PRN ×4 (05:29→22:01)
[2018-10-29] MEDS: Cyclobenzaprine 10 MG Tab PO PRN ×2 (08:27→20:42)
[2018-10-29] MEDS: Metoprolol Tartrate 25 MG Tab PO SCH ×2 (08:28→20:37)
[2018-10-29] MEDS: Lisinopril 5 MG Tab PO SCH (08:28)
[2018-10-29] MEDS: Hydrochlorothiazide 25 MG Tab PO SCH (08:29)
[2018-10-29] MEDS: Rosuvastatin 10 MG Tab PO SCH (08:30)
[2018-10-29] MEDS: Cholecalciferol (Vitamin D3) 1,000 Unit Tab PO SCH (08:32)
[2018-10-29] MEDS: Allopurinol 100 MG Tab PO SCH ×2 (08:33→20:37)
[2018-10-29] MEDS: Multivitamins with Minerals/Folic Acid/Lutein/Zeaxanth Tab PO SCH (08:33)
[2018-10-29] MEDS: Docusate Sodium 100 MG Cap PO PRN (08:34)
[2018-10-29] MEDS: Tamsulosin 0.4 MG Cap.ER PO SCH (08:34)
[2018-10-29] MEDS: Thiamine 100 MG Tab PO SCH (08:35)
[2018-10-29] MEDS: RASAGILINE MESYLATE 1 MG PO SCH (08:35)
[2018-10-29] MEDS ORDERED: Potassium Chloride 20 MEQ Tab.ER PO ONE (10:45)
--- NOTE | 2018-10-29 10:54 | PCM.PN ---
- General Info Date of Service: 10/29/18 Admission Dx/Problem (Free Text): Admission Diagnosis/Problem Admission Diagnosis/Problem Failure to thrive in adult Subjective Update: In to see Олег today. He is sitting in the chair. He is still confused but is able to have a conversation. His daughter is in the room and they are talking about SNF placement. His biggest concerns are that he will be imposing on someone and that he will "just be stuck in a corner and forgotten about." Both his daughter and nursing assure the patient that this is not the case. His daughter is going to see [facility] and [facility] today. She is hopeful [facility] will eventually accept him as she lives a few blocks away and would like to be able to walk to see him. He has been working with therapies. His daughter reports he often forgets to grab his walker when he gets up and requires something to hold onto while walking and that is part of the reason he has been falling so frequently. This in addition to his chronic head bleed, Parkinson's disease, and dementia would certainly make his unsteady. Suspect this combination has been the reason for him falling so much. Олег answers questions appropriately although he is quite hard of hearing. He is confused but does follow commands of the physical exam. He calls his daughter by name as she is leaving and does have a conversation with her although she has to cue him frequently during the conversation. He has been a 2 assist here for us today so far with nursing. He did work with PT/OT today however he was non- verbal with them. It is noted he did follow commands relatively well however. From a medical standpoint he remains stable and is pending placement. Functional Status: Reports: Pain Controlled, Tolerating Diet, Ambulating, Urinating. Denies: New Symptoms - Review of Systems General: Reports: Weakness, Fatigue. Denies: Fever, Malaise, Chills HEENT: Reports: No Symptoms. Denies: Eye Pain, Headaches, Sore Throat, Visual Changes Pulmonary: Reports: No Symptoms. Denies: Shortness of Breath, Pleuritic Chest Pain, Cough, Wheezing Cardiovascular: Reports: No Symptoms. Denies: Chest Pain, Palpitations, Lightheadedness Gastrointestinal: Reports: No Symptoms. Denies: Abdominal Pain, Constipation, Diarrhea, Nausea, Vomiting Genitourinary: Reports: No Symptoms. Denies: Pain Musculoskeletal: Reports: No Symptoms Skin: Reports: No Symptoms Neurological: Reports: Confusion, Pre-Existing Deficit, Difficulty Walking, Weakness, Gait Disturbance. Denies: Dizziness, Headache, Seizure, Syncope Psychiatric: Reports: No Symptoms - Patient Data Vitals - Most Recent: Last Vital Signs Temp 97.0 F 10/29/18 07:45 Pulse 72 10/29/18 08:28 Resp 18 10/29/18 07:45 BP 132/68 10/29/18 08:28 Pulse Ox 96 10/29/18 07:45 Weight - Most Recent: 171 lb 6.4 oz I&O - Last 24 Hours: Intake & Output 10/28/18 10/29/18 10/29/18 22:59 06:59 14:59 Intake Total 100 500 420 Output Total 230 300 Balance -130 200 420 Lab Results Last 24 Hours: Laboratory Results - last 24 hr 10/29/18 10/29/18 Range/Units 06:10 06:10 WBC 6.03 (4.23-9.07) K/mm3 RBC 3.68 L (4.63-6.08) M/mm3 Hgb 11.3 L (13.7-17.5) gm/L Hct 35.0 L (40.1-51.0) % MCV 95.1 H (79.0-92.2) fl MCH 30.7 (25.7-32.2) pg MCHC 32.3 (32.2-35.5) g/dl RDW Std Deviation 49.8 H (35.1-43.9) fL Plt Count 219 (163-337) K/mm3 MPV 9.4 (9.4-12.3) fl Neut % (Auto) 59.1 (34.0-67.9) % Lymph % (Auto) 25.2 (21.8-53.1) % [place] % (Auto) 10.9 (5.3-12.2) % Eos % (Auto) 3.8 (0.8-7.0) Baso % (Auto) 0.3 (0.1-1.2) % Neut # (Auto) 3.56 (1.78-5.38) K/mm3 Lymph # (Auto) 1.52 (1.32-3.57) K/mm3 [place] # (Auto) 0.66 (0.30-0.82) K/mm3 Eos # (Auto) 0.23 (0.04-0.54) K/mm3 Baso # (Auto) 0.02 (0.01-0.08) K/mm3 Sodium 145 (136-145) mEq/L Potassium 3.4 L (3.5-5.1) mEq/L Chloride 111 H (98-107) mEq/L Carbon Dioxide 26 (21-32) mEq/L Anion Gap 11.4 (5-15) BUN 17 (7-18) mg/dL Creatinine 1.0 (0.7-1.3) mg/dL Est Cr Clr Drug Dosing 61.43 mL/min Estimated GFR (MDRD) > 60 (>60) mL/min BUN/Creatinine Ratio 17.0 (14-18) Glucose 88 (83-115) mg/dL Calcium 8.9 (8.5-10.1) mg/dL Magnesium 2.0 (1.8-2.4) mg/dl Med Orders - Current: Current Medications Acetaminophen (Tylenol) 650 mg PO Q4H PRN PRN Reason: Pain (Mild 1-3)/fever Last Admin: 10/29/18 05:29 Dose: 650 mg Allopurinol (Zyloprim) 100 mg PO BID [facility] Last Admin: 10/29/18 08:33 Dose: 100 mg Bisacodyl (Dulcolax) 5 mg PO DAILY PRN PRN Reason: Constipation Calcitriol (Rocaltrol) 0.25 mcg PO SuTh@0900 [facility] Last Admin: 10/28/18 08:43 Dose: 0.25 mcg Carbidopa/Levodopa (Sinemet 25-100 Mg) 1.5 tab PO 0700,1100,1500 [facility] Last Admin: 10/29/18 10:47 Dose: 1.5 tab Carbidopa/Levodopa (Sinemet 25-100 Mg) 1.5 tab PO 1900,2300 [facility] Last Admin: 10/29/18 05:05 Dose: Not Given Cholecalciferol (Vitamin D3) 2,000 units PO DAILY [facility] Last Admin: 10/29/18 08:32 Dose: 2,000 units Cyclobenzaprine HCl (Flexeril) 10 mg PO TID PRN PRN Reason: Muscle Spasm Last Admin: 10/29/18 08:27 Dose: 10 mg Docusate Sodium (Colace) 100 mg PO BID PRN PRN Reason: Constipation Last Admin: 10/29/18 08:34 Dose: 100 mg Donepezil HCl (Aricept) 5 mg PO BEDTIME [facility] Hydrochlorothiazide (Hydrochlorothiazide) 25 mg PO DAILY [facility] Last Admin: 10/29/18 08:29 Dose: 25 mg Promethazine HCl 6.25 mg/ (Sodium Chloride) 50.25 mls @ 100 mls/hr IV Q6H PRN PRN Reason: Nausea/Vomiting Lisinopril (Prinivil) 5 mg PO DAILY [facility] Last Admin: 10/29/18 08:28 Dose: 5 mg Magnesium Hydroxide (Milk Of Magnesia) 30 ml PO Q12H PRN PRN Reason: Constipation Magnesium Sulfate (Pharmacy To Dose - Magnesium Replacement) 0 dose .XX ASDIRECTED PRN PRN Reason: RX TO WATCH MAG Metoprolol Tartrate (Lopressor) 25 mg PO BID [facility] Last Admin: 10/29/18 08:28 Dose: 25 mg Pantoprazole Sodium (Protonix) 40 mg PO ACBREAKFAST [facility] Last Admin: 10/29/18 05:29 Dose: 40 mg Rasagiline Mesylate ([Azilect] 1 Mg) 0 each PO DAILY [facility] Last Admin: 10/29/18 08:35 Dose: Not Given Polyethylene Glycol (Miralax) 17 gm PO DAILY PRN PRN Reason: Constipation Potassium Chloride (Pharmacy To Dose - Potassium Replacement) 0 dose .XX ASDIRECTED PRN PRN Reason: RX TO WATCH K Promethazine HCl (Phenergan) 25 mg PO Q6H PRN PRN Reason: Nausea/Vomiting Rosuvastatin Calcium (Crestor) 40 mg PO DAILY [facility] Last Admin: 10/29/18 08:30 Dose: 40 mg Senna/Docusate Sodium (Senna Plus) 1 tab PO BID PRN PRN Reason: Constipation Tamsulosin HCl (Flomax) 0.4 mg PO DAILY [facility] Last Admin: 10/29/18 08:34 Dose: 0.4 mg Thiamine HCl (Vitamin B-1) 100 mg PO DAILY [facility] Last Admin: 10/29/18 08:35 Dose: 100 mg Vit A/Vit C/Vit E/Selen/Cu/Zn/Lutei (Icaps Mv) 1 tab PO DAILY [facility] Last Admin: 10/29/18 08:33 Dose: 1 tab Discontinued Medications Calcitriol (Rocaltrol) 0.25 mcg PO ASDIRECTED [facility] Carbidopa/Levodopa (Sinemet 25-100 Mg) 1.5 tab PO ONETIME ONE Stop: 10/28/18 20:31 Last Admin: 10/28/18 21:38 Dose: 1.5 tab Donepezil HCl (Aricept) 5 mg PO ONETIME ONE Stop: 10/28/18 20:31 Last Admin: 10/28/18 21:39 Dose: 5 mg Potassium Chloride (Klor-Con M20) 40 meq PO BID [facility] Stop: 10/28/18 21:01 Last Admin: 10/28/18 21:45 Dose: Not Given Potassium Chloride (Klor-Con M20) 40 meq PO ONETIME ONE Stop: 10/29/18 10:46 Last Admin: 10/29/18 10:48 Dose: 40 meq - Exam Quality Assessment: DVT Prophylaxis General: Alert, Cooperative, No Acute Distress HEENT: Pupils Equal, Pupils Reactive, EOMI, Mucous Membr. Moist/[place] Neck: Supple, Trachea Midline, No JVD Lungs: Clear to Auscultation, Normal Respiratory Effort Cardiovascular: Regular Rate, Regular Rhythm GI/Abdominal Exam: Normal Bowel Sounds, Soft, Non-Tender, No Distention, No Abnormal Bruit (Male) Exam: Deferred Back Exam: Normal Inspection Extremities: Normal Inspection, Normal Range of Motion, Non-Tender, No Pedal Edema, Normal Capillary Refill Peripheral Pulses: 3+: Radial (L), Radial (R), Dorsalis Pedis (L), Dorsalis Pedis (R) Skin: Warm, Dry, Intact Neurological: No New Focal Deficit Psy/Mental Status: Alert - Problem List & Annotations (1) Acute on chronic intracranial subdural hematoma SNOMED Code(s): 75670096 Code(s): I62.01 - NONTRAUMATIC ACUTE SUBDURAL HEMORRHAGE; I62.03 - NONTRAUMATIC CHRONIC SUBDURAL HEMORRHAGE Status: Acute Priority: High Current Visit: Yes (2) Failure to thrive in adult SNOMED Code(s): 009168446 Code(s): R62.7 - ADULT FAILURE TO THRIVE Status: Acute Priority: High Current Visit: Yes (3) Fall at home SNOMED Code(s): 28285906 Code(s): W19.XXXA - UNSPECIFIED FALL, INITIAL ENCOUNTER; Y92.009 - UNSP PLACE IN UNSP NON-INSTITUT (PRIVATE) RESIDENCE PLACE Status: Acute Priority: High Current Visit: Yes Qualifiers: Encounter type: initial encounter Qualified Code(s): W19.XXXA - Unspecified fall, initial encounter; Y92.009 - Unspecified place in unspecified non-institutional (private) residence as the place of occurrence of the external cause (4) Dementia SNOMED Code(s): 12671066 Code(s): F03.90 - UNSPECIFIED DEMENTIA WITHOUT BEHAVIORAL DISTURBANCE Status: Chronic Priority: Medium Current Visit: Yes Qualifiers: Dementia type: Alzheimer's disease Alzheimer's disease onset: unspecified onset Dementia behavioral disturbance: without behavioral disturbance Qualified Code(s): G30.9 - Alzheimer's disease, unspecified; F02.80 - Dementia in other diseases classified elsewhere without behavioral disturbance (5) Parkinson disease SNOMED Code(s): 43926618 Code(s): G20 - PARKINSON'S DISEASE Status: Chronic Priority: Medium Current Visit: Yes - Problem List Review Problem List Initiated/Reviewed/Updated: Yes - My Orders Last 24 Hours: My Active Orders 10/28/18 14:15 Pharmacy to Dose - Magnesium R [Pharmacy to Dose - Magnesium Replacement] 0 dose .XX ASDIRECTED PRN - Plan Plan:: Assessment/Plan: Acute: Subdural Hematoma * Acute on Chronic (chronic portion appears to have occurred after previous CT on 08/07/2018) * Risk Factor: Parkinson's, Falls nearly daily x 6 months, daily x 2-3 weeks * CT head in ED: * 1. Acute subdural hematoma superimposed upon chronic left-sided subdural hematoma. This is an interval change from prior head CT study. This finding causes mild midline shift of approximately 7 mm. Thickness of the subdural collection is approximately 1 cm. * 2. Senescent change as noted above which is similar to prior head CT study. * 3. Increasing mucosal thickening within the paranasal sinuses most likely due to worsening chronic sinusitis. * Case discussed with Dr. Matamoros, Neurosurgeon at [facility] in ED: * Pt not good candidate for neurosurgery--> Pt would likely have difficulty w/ anesthesia and wouldn't be able to participate meaningfully w/ his recovery * Majority of the blood seems to be old * Most important thing is to keep pt from falling and hitting his head * Repeat CT scan in 1 week * Fall precautions; Up with assistance Failure to Thrive * Risk Factors: Alzheimer's Dementia, Parkinson's * Falls nearly daily x 6 months, daily x 2-3 weeks * Pt is set up to go to [facility], awaiting Medicaid paperwork--> [facility] has now declined placement * The pt's daughter doesn't feel he can safely remain at home any longer * PT/OT * CM/SW--> working on placement to SNF Chronic: Alzheimer's Dementia Parkinson's AAA s/p graft HTN HLD GERD BPH Arthritis Back pain Gout Plan: Admit to Inpatient He remains stable and is pending placement Routine AM Labs DVT/GI prophylaxis CM/SW PT/OT Code Status: DNR/DNI; PCP: Dr. Alvarez The patient's Neurologist is Dr. Carlin D/C Plan: * Repeat CT scan
[2018-10-29] MEDS: Donepezil 10 MG Tab PO SCH (20:39)
[2018-10-30] MEDS: Carbidopa/Levodopa 25-100 MG Tab PO SCH ×4 (06:01→18:54)
[2018-10-30] MEDS: Pantoprazole 40 MG Tab.CR PO SCH (06:01)
--- NOTE | 2018-10-30 08:18 | PCM.PN ---
- General Info Date of Service: 10/30/18 Admission Dx/Problem (Free Text): Admission Diagnosis/Problem Admission Diagnosis/Problem Failure to thrive in adult Subjective Update: No overnight or acute issues. He rested well last night. He has no complaints this morning and his visions are okay. Functional Status: Reports: Pain Controlled, Tolerating Diet, Ambulating, Urinating. Denies: New Symptoms - Review of Systems General: Reports: Weakness. Denies: Fever, Chills HEENT: Reports: No Symptoms, Other. Denies: Eye Pain, Headaches Pulmonary: Denies: Shortness of Breath Cardiovascular: Denies: Chest Pain, Dyspnea on Exertion, Lightheadedness Gastrointestinal: Denies: Abdominal Pain, Diarrhea, Vomiting Genitourinary: Reports: No Symptoms Musculoskeletal: Reports: No Symptoms Skin: Denies: Cyanosis, Pallor, Diaphoresis Neurological: Reports: Confusion (baseline), Difficulty Walking, Weakness, Gait Disturbance. Denies: Headache, Numbness, Trouble Speaking, Change in Speech Psychiatric: Denies: Depression, Anxiety, Agitation, Hallucinations - Patient Data Vitals - Most Recent: Last Vital Signs Temp 36.2 C 10/30/18 07:44 Pulse 71 10/30/18 07:44 Resp 20 10/30/18 07:44 BP 130/78 10/30/18 07:44 Pulse Ox 98 10/30/18 07:44 Weight - Most Recent: 75.931 kg I&O - Last 24 Hours: Intake & Output 10/29/18 10/30/18 10/30/18 22:59 06:59 14:59 Intake Total 1670 300 Output Total 450 400 Balance 1220 -100 Lab Results Last 24 Hours: Laboratory Results - last 24 hr 10/30/18 10/30/18 Range/Units 06:19 06:19 WBC 7.10 (4.23-9.07) K/mm3 RBC 3.91 L (4.63-6.08) M/mm3 Hgb 12.0 L (13.7-17.5) gm/L Hct 36.5 L (40.1-51.0) % MCV 93.4 H (79.0-92.2) fl MCH 30.7 (25.7-32.2) pg MCHC 32.9 (32.2-35.5) g/dl RDW Std Deviation 48.3 H (35.1-43.9) fL Plt Count 223 (163-337) K/mm3 MPV 9.4 (9.4-12.3) fl Neut % (Auto) 69.2 H (34.0-67.9) % Lymph % (Auto) 17.9 L (21.8-53.1) % [place] % (Auto) 9.0 (5.3-12.2) % Eos % (Auto) 3.2 (0.8-7.0) Baso % (Auto) 0.3 (0.1-1.2) % Neut # (Auto) 4.91 (1.78-5.38) K/mm3 Lymph # (Auto) 1.27 L (1.32-3.57) K/mm3 [place] # (Auto) 0.64 (0.30-0.82) K/mm3 Eos # (Auto) 0.23 (0.04-0.54) K/mm3 Baso # (Auto) 0.02 (0.01-0.08) K/mm3 Sodium 141 (136-145) mEq/L Potassium 4.2 (3.5-5.1) mEq/L Chloride 106 (98-107) mEq/L Carbon Dioxide 27 (21-32) mEq/L Anion Gap 12.2 (5-15) BUN 17 (7-18) mg/dL Creatinine 1.0 (0.7-1.3) mg/dL Est Cr Clr Drug Dosing 60.11 mL/min Estimated GFR (MDRD) > 60 (>60) mL/min BUN/Creatinine Ratio 17.0 (14-18) Glucose 98 (83-115) mg/dL Calcium 8.9 (8.5-10.1) mg/dL Magnesium 1.9 (1.8-2.4) mg/dl Med Orders - Current: Current Medications Acetaminophen (Tylenol) 650 mg PO Q4H PRN PRN Reason: Pain (Mild 1-3)/fever Last Admin: 10/29/18 22:01 Dose: 650 mg Allopurinol (Zyloprim) 100 mg PO BID [facility] Last Admin: 10/29/18 20:37 Dose: 100 mg Bisacodyl (Dulcolax) 5 mg PO DAILY PRN PRN Reason: Constipation Calcitriol (Rocaltrol) 0.25 mcg PO SuTh@0900 [facility] Last Admin: 10/28/18 08:43 Dose: 0.25 mcg Carbidopa/Levodopa (Sinemet 25-100 Mg) 1.5 tab PO 0700,1100,1500 [facility] Last Admin: 10/30/18 06:01 Dose: 1.5 tab Carbidopa/Levodopa (Sinemet 25-100 Mg) 1.5 tab PO 1900,2300 [facility] Last Admin: 10/29/18 22:02 Dose: 1.5 tab Cholecalciferol (Vitamin D3) 2,000 units PO DAILY [facility] Last Admin: 10/29/18 08:32 Dose: 2,000 units Cyclobenzaprine HCl (Flexeril) 10 mg PO TID PRN PRN Reason: Muscle Spasm Last Admin: 10/29/18 20:42 Dose: 10 mg Docusate Sodium (Colace) 100 mg PO BID PRN PRN Reason: Constipation Last Admin: 10/29/18 08:34 Dose: 100 mg Donepezil HCl (Aricept) 5 mg PO BEDTIME [facility] Last Admin: 10/29/18 20:39 Dose: 5 mg Hydrochlorothiazide (Hydrochlorothiazide) 25 mg PO DAILY [facility] Last Admin: 10/29/18 08:29 Dose: 25 mg Promethazine HCl 6.25 mg/ (Sodium Chloride) 50.25 mls @ 100 mls/hr IV Q6H PRN PRN Reason: Nausea/Vomiting Lisinopril (Prinivil) 5 mg PO DAILY [facility] Last Admin: 10/29/18 08:28 Dose: 5 mg Magnesium Hydroxide (Milk Of Magnesia) 30 ml PO Q12H PRN PRN Reason: Constipation Magnesium Sulfate (Pharmacy To Dose - Magnesium Replacement) 0 dose .XX ASDIRECTED PRN PRN Reason: RX TO WATCH MAG Metoprolol Tartrate (Lopressor) 25 mg PO BID [facility] Last Admin: 10/29/18 20:37 Dose: 25 mg Pantoprazole Sodium (Protonix) 40 mg PO ACBREAKFAST [facility] Last Admin: 10/30/18 06:01 Dose: 40 mg Rasagiline Mesylate ([Azilect] 1 Mg) 0 each PO DAILY [facility] Last Admin: 10/29/18 08:35 Dose: Not Given Polyethylene Glycol (Miralax) 17 gm PO DAILY PRN PRN Reason: Constipation Potassium Chloride (Pharmacy To Dose - Potassium Replacement) 0 dose .XX ASDIRECTED PRN PRN Reason: RX TO WATCH K Promethazine HCl (Phenergan) 25 mg PO Q6H PRN PRN Reason: Nausea/Vomiting Rosuvastatin Calcium (Crestor) 40 mg PO DAILY [facility] Last Admin: 10/29/18 08:30 Dose: 40 mg Senna/Docusate Sodium (Senna Plus) 1 tab PO BID PRN PRN Reason: Constipation Tamsulosin HCl (Flomax) 0.4 mg PO DAILY [facility] Last Admin: 10/29/18 08:34 Dose: 0.4 mg Thiamine HCl (Vitamin B-1) 100 mg PO DAILY [facility] Last Admin: 10/29/18 08:35 Dose: 100 mg Vit A/Vit C/Vit E/Selen/Cu/Zn/Lutei (Icaps Mv) 1 tab PO DAILY [facility] Last Admin: 10/29/18 08:33 Dose: 1 tab Discontinued Medications Calcitriol (Rocaltrol) 0.25 mcg PO ASDIRECTED [facility] Carbidopa/Levodopa (Sinemet 25-100 Mg) 1.5 tab PO ONETIME ONE Stop: 10/28/18 20:31 Last Admin: 10/28/18 21:38 Dose: 1.5 tab Donepezil HCl (Aricept) 5 mg PO ONETIME ONE Stop: 10/28/18 20:31 Last Admin: 10/28/18 21:39 Dose: 5 mg Potassium Chloride (Klor-Con M20) 40 meq PO BID [facility] Stop: 10/28/18 21:01 Last Admin: 10/28/18 21:45 Dose: Not Given Potassium Chloride (Klor-Con M20) 40 meq PO ONETIME ONE Stop: 10/29/18 10:46 Last Admin: 10/29/18 10:48 Dose: 40 meq - Exam General: Alert, Cooperative, No Acute Distress HEENT: Pupils Equal, Pupils Reactive, Mucous Membr. Moist/[place], Other (hard of hearing; passes basic visual acuity check) Neck: Supple Lungs: Normal Respiratory Effort, Decreased Breath Sounds Cardiovascular: Regular Rate, Regular Rhythm GI/Abdominal Exam: Normal Bowel Sounds, Soft, Non-Tender, No Organomegaly, No Distention, No Abnormal Bruit (Male) Exam: Deferred Back Exam: Normal Inspection, Decreased Range of Motion Extremities: Normal Inspection, Non-Tender, No Pedal Edema, Normal Capillary Refill, Limited Range of Motion Peripheral Pulses: 2+: Dorsalis Pedis (L), Dorsalis Pedis (R) Skin: Warm, Dry, Intact Neurological: No New Focal Deficit (limited due to difficulty folling commands from impaired hearing ). No: Normal Gait Psy/Mental Status: Alert, Normal Affect, Normal Mood - Problem List Review Problem List Initiated/Reviewed/Updated: Yes - Plan Plan:: Assessment/Plan: Acute: Subdural Hematoma, Stable * Acute on Chronic (chronic portion appears to have occurred after previous CT on 08/07/2018) * Risk Factor: Parkinson's, Falls nearly daily x 6 months, daily x 2-3 weeks * CT head in ED: * 1. Acute subdural hematoma superimposed upon chronic left-sided subdural hematoma. This is an interval change from prior head CT study. This finding causes mild midline shift of approximately 7 mm. Thickness of the subdural collection is approximately 1 cm. * 2. Senescent change as noted above which is similar to prior head CT study. * 3. Increasing mucosal thickening within the paranasal sinuses most likely due to worsening chronic sinusitis. * Case discussed with Dr. Matamoros, Neurosurgeon at [facility] in ED: * Pt not good candidate for neurosurgery--> Pt would likely have difficulty w/ anesthesia and wouldn't be able to participate meaningfully w/ his recovery * Majority of the blood seems to be old * Most important thing is to keep pt from falling and hitting his head * Repeat CT scan in 1 week * Fall precautions; Up with assistance Failure to Thrive, Not true in my opinion * Patient looks healthy and in good shape * What perceives as "failure to thrive" is due to his underlying disease(s) taking its natural course as noted below * Risk Factors: Alzheimer's Dementia and Parkinson's Disease * Falls nearly daily x 6 months, daily x 2-3 weeks * Pt is set up to go to [facility], awaiting Medicaid paperwork--> [facility] has now declined placement * The pt's daughter doesn't feel he can safely remain at home any longer * CM/SW--> working on placement to SNF Chronic: Alzheimer's Dementia Parkinson's AAA s/p graft HTN HLD GERD BPH Arthritis Back pain Gout Plan: He is clinically stable Discontinue routine AM Labs DVT/GI prophylaxis CM/SW for placement PT/OT for deconditioning Fall Precautions Code Status: DNR/DNI; PCP: Dr. Alvarez The patient's Neurologist is Dr. Carlin LOS anticipate > 96hrs pending placement. This is essentially failure to meet administrative responsibility by his family for fdc placement. D/C Plan: * Repeat CT scan
[2018-10-30] MEDS: Rosuvastatin 10 MG Tab PO SCH (08:41)
[2018-10-30] MEDS: Cholecalciferol (Vitamin D3) 1,000 Unit Tab PO SCH (08:42)
[2018-10-30] MEDS: Lisinopril 5 MG Tab PO SCH (08:43)
[2018-10-30] MEDS: Multivitamins with Minerals/Folic Acid/Lutein/Zeaxanth Tab PO SCH (08:43)
[2018-10-30] MEDS: Tamsulosin 0.4 MG Cap.ER PO SCH (08:44)
[2018-10-30] MEDS: Hydrochlorothiazide 25 MG Tab PO SCH (08:44)
[2018-10-30] MEDS: Thiamine 100 MG Tab PO SCH (08:44)
[2018-10-30] MEDS: Metoprolol Tartrate 25 MG Tab PO SCH ×2 (08:45→20:02)
[2018-10-30] MEDS: Allopurinol 100 MG Tab PO SCH ×2 (08:45→20:02)
[2018-10-30] MEDS: Cyclobenzaprine 10 MG Tab PO PRN ×2 (08:46→16:30)
[2018-10-30] MEDS: RASAGILINE MESYLATE 1 MG PO SCH (08:46)
[2018-10-30] MEDS: Acetaminophen 325 MG Tab PO PRN ×2 (13:58→19:57)
--- NOTE | 2018-10-30 16:41 | PCM.SN ---
- Free Text/Narrative Note: This afternoon, I was informed patient has become increasingly agitated and restless. He has no home routine medication(s) to control his symptoms. We will try behavior modifications first and if not success, oral atypical antipsychotic seroquel 25 mg po q6 as needed. We'll try to avoid haldol if all possible.
[2018-10-30] MEDS ORDERED: Haloperidol Lactate 5 MG/ML SDV ONE (16:53)
[2018-10-30] MEDS: Haloperidol Lactate 5 MG/ML SDV IM PRN (16:58)
[2018-10-30] MEDS ORDERED: Haloperidol Lactate 5 MG/ML SDV IM ONE ×2 (17:03→17:12)
[2018-10-30] MEDS: Haloperidol Lactate 5 MG/ML SDV IVPUSH ONE ×2 (17:30→20:21)
[2018-10-30] MEDS: QUEtiapine 25 MG Tab PO PRN (19:34)
[2018-10-30] MEDS: Donepezil 10 MG Tab PO SCH (20:03)
[2018-10-30] MEDS ORDERED: traMADol 50 MG Tab PO ONE (20:30)
[2018-10-31] MEDS: Carbidopa/Levodopa 25-100 MG Tab PO SCH ×6 (00:19→22:49)
[2018-10-31] MEDS: QUEtiapine 25 MG Tab PO PRN (02:45)
[2018-10-31] MEDS ORDERED: traMADol 50 MG Tab PO SCH (03:00)
[2018-10-31] MEDS ORDERED: traMADol 50 MG Tab PO PRN (06:35)
[2018-10-31] MEDS: Thiamine 100 MG Tab PO SCH (08:27)
[2018-10-31] MEDS: Docusate Sodium 100 MG Cap PO PRN (08:28)
[2018-10-31] MEDS: Pantoprazole 40 MG Tab.CR PO SCH (08:28)
[2018-10-31] MEDS: Calcitriol 0.25 MCG Cap PO SCH (08:28)
[2018-10-31] MEDS: Multivitamins with Minerals/Folic Acid/Lutein/Zeaxanth Tab PO SCH (08:28)
[2018-10-31] MEDS: Hydrochlorothiazide 25 MG Tab PO SCH (08:28)
[2018-10-31] MEDS: Allopurinol 100 MG Tab PO SCH ×2 (08:28→20:17)
[2018-10-31] MEDS: Cholecalciferol (Vitamin D3) 1,000 Unit Tab PO SCH (08:29)
[2018-10-31] MEDS: Lisinopril 5 MG Tab PO SCH (08:29)
[2018-10-31] MEDS: Tamsulosin 0.4 MG Cap.ER PO SCH (08:30)
[2018-10-31] MEDS: Rosuvastatin 10 MG Tab PO SCH (08:30)
[2018-10-31] MEDS: Metoprolol Tartrate 25 MG Tab PO SCH ×2 (08:31→20:17)
[2018-10-31] MEDS: Haloperidol Lactate 5 MG/ML SDV IM PRN (10:33)
[2018-10-31] MEDS: RASAGILINE MESYLATE 1 MG PO SCH ×2 (10:34→18:37)
[2018-10-31] MEDS: Acetaminophen 325 MG Tab PO PRN ×3 (10:43→22:50)
[2018-10-31] MEDS ORDERED: Haloperidol Lactate 5 MG/ML SDV IM PRN ×2 (10:47→10:51)
[2018-10-31] MEDS ORDERED: Haloperidol Lactate 5 MG/ML SDV IM ONE (10:48)
--- NOTE | 2018-10-31 10:48 | PCM.PN ---
- General Info Date of Service: 10/31/18 Admission Dx/Problem (Free Text): Admission Diagnosis/Problem Admission Diagnosis/Problem Failure to thrive in adult Subjective Update: Follow Up Functional Status: Reports: Pain Controlled, Urinating. Denies: New Symptoms - Review of Systems General: Denies: Fever, Weakness, Fatigue, Malaise, Chills HEENT: Reports: No Symptoms Pulmonary: Denies: Shortness of Breath, Pleuritic Chest Pain, Cough, Wheezing Cardiovascular: Denies: Chest Pain, Dyspnea on Exertion, Lightheadedness Gastrointestinal: Denies: Abdominal Pain, Constipation, Decreased Appetite, Nausea, Vomiting Genitourinary: Denies: Dysuria, Urgency, Hematuria, Retention Musculoskeletal: Denies: Neck Pain Skin: Denies: Jaundice, Pallor, Diaphoresis, Bruising Neurological: Reports: Confusion. Denies: Numbness, Difficulty Walking, Weakness, Gait Disturbance Psychiatric: Reports: Anxiety, Agitation. Denies: Confusion, Mood Lability, Hallucinations Systems Review Comment:: Pretty restless and agitated last night according to her day nurse. He did get Seroquel 25 mg x 2: one at 1934 last night and the other at about 0200 AM. He slept about 3 hours at the beginning of day shift then woke started getting agitated. He currently being tended too by 3 staff: nurse aide, hospital nursing assistant and his day nurse. His flexeril was stopped last night to prevent sedation side effects on top of his psychotropic medications. - Patient Data Vitals - Most Recent: Last Vital Signs Temp 36.8 C 10/31/18 03:20 Pulse 78 10/31/18 08:31 Resp 16 10/31/18 03:20 BP 116/73 10/31/18 08:31 Pulse Ox 95 10/31/18 03:20 Weight - Most Recent: 77.428 kg I&O - Last 24 Hours: Intake & Output 10/30/18 10/31/18 10/31/18 22:59 06:59 14:59 Intake Total 800 200 0 Output Total 275 525 Balance 525 -325 0 Med Orders - Current: Current Medications Acetaminophen (Tylenol) 650 mg PO Q4H PRN PRN Reason: Pain (Mild 1-3)/fever Last Admin: 10/30/18 19:57 Dose: 650 mg Allopurinol (Zyloprim) 100 mg PO BID TANI Last Admin: 10/31/18 08:28 Dose: 100 mg Bisacodyl (Dulcolax) 5 mg PO DAILY PRN PRN Reason: Constipation Calcitriol (Rocaltrol) 0.25 mcg PO SuTh@0900 [facility] Last Admin: 10/31/18 08:28 Dose: 0.25 mcg Carbidopa/Levodopa (Sinemet 25-100 Mg) 1.5 tab PO 0700,1100,1500 [facility] Last Admin: 10/31/18 08:30 Dose: 1.5 tab Carbidopa/Levodopa (Sinemet 25-100 Mg) 1.5 tab PO 1900,2300 [facility] Last Admin: 10/31/18 00:19 Dose: 1.5 tab Cholecalciferol (Vitamin D3) 2,000 units PO DAILY [facility] Last Admin: 10/31/18 08:29 Dose: 2,000 units Docusate Sodium (Colace) 100 mg PO BID PRN PRN Reason: Constipation Last Admin: 10/31/18 08:28 Dose: 100 mg Donepezil HCl (Aricept) 5 mg PO BEDTIME [facility] Last Admin: 10/30/18 20:03 Dose: 5 mg Haloperidol Lactate (Haldol) 5 mg IM Q6H PRN PRN Reason: Disruptive behavior Hydrochlorothiazide (Hydrochlorothiazide) 25 mg PO DAILY [facility] Last Admin: 10/31/18 08:28 Dose: 25 mg Promethazine HCl 6.25 mg/ (Sodium Chloride) 50.25 mls @ 100 mls/hr IV Q6H PRN PRN Reason: Nausea/Vomiting Lisinopril (Prinivil) 5 mg PO DAILY [facility] Last Admin: 10/31/18 08:29 Dose: 5 mg Magnesium Hydroxide (Milk Of Magnesia) 30 ml PO Q12H PRN PRN Reason: Constipation Magnesium Sulfate (Pharmacy To Dose - Magnesium Replacement) 0 dose .XX ASDIRECTED PRN PRN Reason: RX TO WATCH MAG Metoprolol Tartrate (Lopressor) 25 mg PO BID [facility] Last Admin: 10/31/18 08:31 Dose: 25 mg Pantoprazole Sodium (Protonix) 40 mg PO ACBREAKFAST [facility] Last Admin: 10/31/18 08:28 Dose: 40 mg Rasagiline Mesylate ([Azilect] 1 Mg) 0 each PO DAILY [facility] Last Admin: 10/31/18 10:34 Dose: Not Given Polyethylene Glycol (Miralax) 17 gm PO DAILY PRN PRN Reason: Constipation Potassium Chloride (Pharmacy To Dose - Potassium Replacement) 0 dose .XX ASDIRECTED PRN PRN Reason: RX TO WATCH K Promethazine HCl (Phenergan) 25 mg PO Q6H PRN PRN Reason: Nausea/Vomiting Rosuvastatin Calcium (Crestor) 40 mg PO DAILY [facility] Last Admin: 10/31/18 08:30 Dose: 40 mg Senna/Docusate Sodium (Senna Plus) 1 tab PO BID PRN PRN Reason: Constipation Tamsulosin HCl (Flomax) 0.4 mg PO DAILY [facility] Last Admin: 10/31/18 08:30 Dose: 0.4 mg Thiamine HCl (Vitamin B-1) 100 mg PO DAILY [facility] Last Admin: 10/31/18 08:27 Dose: 100 mg Vit A/Vit C/Vit E/Selen/Cu/Zn/Lutei (Icaps Mv) 1 tab PO DAILY [facility] Last Admin: 10/31/18 08:28 Dose: 1 tab Discontinued Medications Calcitriol (Rocaltrol) 0.25 mcg PO ASDIRECTED [facility] Carbidopa/Levodopa (Sinemet 25-100 Mg) 1.5 tab PO ONETIME ONE Stop: 10/28/18 20:31 Last Admin: 10/28/18 21:38 Dose: 1.5 tab Cyclobenzaprine HCl (Flexeril) 10 mg PO TID PRN PRN Reason: Muscle Spasm Last Admin: 10/30/18 16:30 Dose: 10 mg Donepezil HCl (Aricept) 5 mg PO ONETIME ONE Stop: 10/28/18 20:31 Last Admin: 10/28/18 21:39 Dose: 5 mg Haloperidol Lactate (Haldol) 2.5 mg IM Q8H PRN PRN Reason: Disruptive behavior Last Admin: 10/31/18 10:33 Dose: 2.5 mg Haloperidol Lactate (Haldol) Confirm Administered Dose 5 mg .ROUTE .STK-MED ONE Stop: 10/30/18 16:54 Last Admin: 10/30/18 17:30 Dose: Not Given Haloperidol Lactate (Haldol) 2.5 mg IM ONETIME ONE Stop: 10/30/18 17:04 Last Admin: 02/02/19 17:06 Dose: 2.5 mg Haloperidol Lactate (Haldol) 2.5 mg IVPUSH ONETIME ONE Stop: 10/30/18 17:13 Last Admin: 10/30/18 17:30 Dose: Not Given Haloperidol Lactate (Haldol) 2.5 mg IM ONETIME ONE Stop: 10/30/18 17:13 Last Admin: 10/30/18 17:14 Dose: 2.5 mg Potassium Chloride (Klor-Con M20) 40 meq PO BID [facility] Stop: 10/28/18 21:01 Last Admin: 10/28/18 21:45 Dose: Not Given Potassium Chloride (Klor-Con M20) 40 meq PO ONETIME ONE Stop: 10/29/18 10:46 Last Admin: 10/29/18 10:48 Dose: 40 meq Quetiapine Fumarate (Seroquel) 25 mg PO Q6H PRN PRN Reason: Disruptive Behavior Last Admin: 10/31/18 02:45 Dose: 25 mg Tramadol HCl (Ultram) 50 mg PO Q6H [facility] Last Admin: 10/31/18 02:11 Dose: 50 mg Tramadol HCl (Ultram) 50 mg PO ONETIME ONE Stop: 10/30/18 20:31 Last Admin: 10/30/18 20:26 Dose: 50 mg Tramadol HCl (Ultram) 50 mg PO Q6H PRN PRN Reason: Pain - Exam General: Alert, Other (restless and agitated; he is however non-combative and/ or verbally abusive). No: Cooperative HEENT: Pupils Equal, Pupils Reactive Neck: Supple Lungs: Clear to Auscultation, Normal Respiratory Effort Cardiovascular: Regular Rate, Regular Rhythm GI/Abdominal Exam: Normal Bowel Sounds, Soft, Non-Tender, No Organomegaly, No Distention, No Abnormal Bruit (Male) Exam: Deferred Back Exam: Other (deferred) Extremities: Non-Tender, No Pedal Edema, Normal Capillary Refill Peripheral Pulses: 2+: Dorsalis Pedis (L), Dorsalis Pedis (R) Skin: Warm, Dry, Intact Neurological: Other (not appropriate at this time) Psy/Mental Status: Agitated - Problem List Review Problem List Initiated/Reviewed/Updated: Yes - My Orders Last 24 Hours: My Active Orders 10/30/18 17:03 Restraint/S VIOL/SD Initiate 18 - Older [OM.PC] Stat 10/30/18 18:36 Patient Status [ADT] Routine 10/30/18 18:38 Consult to Physician [CONS] Routine 10/30/18 18:39 Notify Provider Consults [RC] ASDIRECTED 10/31/18 10:47 Haloperidol Lactate [Haldol] 5 mg IM Q6H PRN - Plan Plan:: Assessment/Plan: Acute: Acute Agitation with Disruptive Behaviors * Has 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 Odell * Again he had a brief episode of agitation this morning but he responded with low dose IM Haldol * SW/CM to assess for possible change in placement status Subdural Hematoma, Stable * Acute on Chronic (chronic portion appears to have occurred after previous CT on 08/07/2018) * Risk Factor: Parkinson's, Falls nearly daily x 6 months, daily x 2-3 weeks * CT head in ED: * 1. Acute subdural hematoma superimposed upon chronic left-sided subdural hematoma. This is an interval change from prior head CT study. This finding causes mild midline shift of approximately 7 mm. Thickness of the subdural collection is approximately 1 cm. * 2. Senescent change as noted above which is similar to prior head CT study. * 3. Increasing mucosal thickening within the paranasal sinuses most likely due to worsening chronic sinusitis. * Case discussed with Dr. Matamoros, Neurosurgeon at [facility] in ED: * Pt not good candidate for neurosurgery--> Pt would likely have difficulty w/ anesthesia and wouldn't be able to participate meaningfully w/ his recovery * Majority of the blood seems to be old * Most important thing is to keep pt from falling and hitting his head * Repeat CT scan in 1 week * Fall precautions; Up with assistance Failure to Thrive, Not true in my opinion * Patient looks healthy and in good shape * What perceives as "failure to thrive" is due to his underlying disease(s) taking its natural course as noted below * Risk Factors: Alzheimer's Dementia and Parkinson's Disease * Falls nearly daily x 6 months, daily x 2-3 weeks * Pt is set up to go to [facility], awaiting Medicaid paperwork--> [facility] has now declined placement * The pt's daughter doesn't feel he can safely remain at home any longer * CM/SW--> working on placement to SNF Chronic: Alzheimer's Dementia Parkinson's AAA s/p graft HTN HLD GERD BPH Arthritis Back pain Gout Plan: He remains clinically stable Check for e-lytes in AM if he is NPO DVT/GI prophylaxis CM/SW for placement PRN EKG to monitor for QT prolongation PT/OT for deconditioning Fall Precautions Sundowning Prevention Stopped Flexeril and Tramadol to minimize sedation Code Status: DNR/DNI; PCP: Dr. Alvarez The patient's Neurologist is Dr. Carlin LOS > 96hrs pending placement with recent changes in his behavioral and psychiatric status D/C Plan: * Repeat CT scan
[2018-10-31] MEDS: Donepezil 10 MG Tab PO SCH (20:18)
[2018-11-01] MEDS: Pantoprazole 40 MG Tab.CR PO SCH (06:36)
[2018-11-01] MEDS: Carbidopa/Levodopa 25-100 MG Tab PO SCH ×5 (07:24→22:00)
[2018-11-01] MEDS: Multivitamins with Minerals/Folic Acid/Lutein/Zeaxanth Tab PO SCH (08:40)
[2018-11-01] MEDS: Cholecalciferol (Vitamin D3) 1,000 Unit Tab PO SCH (08:40)
[2018-11-01] MEDS: Hydrochlorothiazide 25 MG Tab PO SCH (08:41)
[2018-11-01] MEDS: Allopurinol 100 MG Tab PO SCH ×2 (08:41→22:01)
[2018-11-01] MEDS: Acetaminophen 325 MG Tab PO PRN ×4 (08:41→22:04)
[2018-11-01] MEDS: Thiamine 100 MG Tab PO SCH (08:41)
[2018-11-01] MEDS: Rosuvastatin 10 MG Tab PO SCH (08:41)
[2018-11-01] MEDS: Lisinopril 5 MG Tab PO SCH (08:41)
[2018-11-01] MEDS: Tamsulosin 0.4 MG Cap.ER PO SCH (08:41)
[2018-11-01] MEDS: Metoprolol Tartrate 25 MG Tab PO SCH ×2 (08:42→22:01)
[2018-11-01] MEDS: RASAGILINE MESYLATE 1 MG PO SCH (08:43)
--- NOTE | 2018-11-01 09:52 | PCM.PN ---
- General Info Date of Service: 11/01/18 Admission Dx/Problem (Free Text): Admission Diagnosis/Problem Admission Diagnosis/Problem Failure to thrive in adult Subjective Update: Follow Up Functional Status: Reports: Pain Controlled, Urinating. Denies: Ambulating - Review of Systems General: Denies: Fever, Chills HEENT: Reports: No Symptoms Pulmonary: Denies: Shortness of Breath Cardiovascular: Denies: Chest Pain, Dyspnea on Exertion, Edema, Lightheadedness Gastrointestinal: Denies: Nausea, Vomiting Genitourinary: Reports: No Symptoms Musculoskeletal: Reports: No Symptoms Neurological: Reports: Confusion, Headache, Difficulty Walking, Weakness, Gait Disturbance Psychiatric: Reports: Anxiety, Agitation. Denies: Depression, Hallucinations Systems Review Comment:: He was up all night agitated/restless and tried to get out of bed multiple times. He did not calm down and finally fall asleep until he received a one time low dose of Haldol 2.5 mg IM at 430 AM until morning rounds. Per day nurse , he was cooperative and took his AM pills this morning. He still on 1:1 care. - Patient Data Vitals - Most Recent: Last Vital Signs Temp 36.7 C 11/01/18 08:36 Pulse 85 11/01/18 08:42 Resp 14 11/01/18 08:36 BP 107/72 11/01/18 08:42 Pulse Ox 98 11/01/18 08:36 Weight - Most Recent: 76.975 kg I&O - Last 24 Hours: Intake & Output 10/31/18 11/01/18 11/01/18 22:59 06:59 14:59 Intake Total 1100 300 180 Output Total 200 200 Balance 900 100 180 Lab Results Last 24 Hours: Laboratory Results - last 24 hr 11/01/18 Range/Units 07:07 Sodium 140 (136-145) mEq/L Potassium 4.3 (3.5-5.1) mEq/L Chloride 104 (98-107) mEq/L Carbon Dioxide 29 (21-32) mEq/L Anion Gap 11.3 (5-15) BUN 19 H (7-18) mg/dL Creatinine 1.1 (0.7-1.3) mg/dL Est Cr Clr Drug Dosing 55.40 mL/min Estimated GFR (MDRD) > 60 (>60) mL/min BUN/Creatinine Ratio 17.3 (14-18) Glucose 105 (83-115) mg/dL Calcium 9.4 (8.5-10.1) mg/dL Magnesium 2.0 (1.8-2.4) mg/dl Med Orders - Current: Current Medications Acetaminophen (Tylenol) 650 mg PO Q4H PRN PRN Reason: Pain (Mild 1-3)/fever Last Admin: 11/01/18 08:41 Dose: 650 mg Allopurinol (Zyloprim) 100 mg PO BID [facility] Last Admin: 11/01/18 08:41 Dose: 100 mg Bisacodyl (Dulcolax) 5 mg PO DAILY PRN PRN Reason: Constipation Calcitriol (Rocaltrol) 0.25 mcg PO SuTh@0900 [facility] Last Admin: 10/31/18 08:28 Dose: 0.25 mcg Carbidopa/Levodopa (Sinemet 25-100 Mg) 1.5 tab PO 0700,1100,1500 [facility] Last Admin: 11/01/18 07:24 Dose: 1.5 tab Carbidopa/Levodopa (Sinemet 25-100 Mg) 1.5 tab PO 1900,2300 [facility] Last Admin: 10/31/18 22:49 Dose: 1.5 tab Cholecalciferol (Vitamin D3) 2,000 units PO DAILY [facility] Last Admin: 11/01/18 08:40 Dose: 2,000 units Docusate Sodium (Colace) 100 mg PO BID PRN PRN Reason: Constipation Last Admin: 10/31/18 08:28 Dose: 100 mg Donepezil HCl (Aricept) 5 mg PO BEDTIME [facility] Last Admin: 10/31/18 20:18 Dose: 5 mg Hydrochlorothiazide (Hydrochlorothiazide) 25 mg PO DAILY [facility] Last Admin: 11/01/18 08:41 Dose: 25 mg Promethazine HCl 6.25 mg/ (Sodium Chloride) 50.25 mls @ 100 mls/hr IV Q6H PRN PRN Reason: Nausea/Vomiting Lisinopril (Prinivil) 5 mg PO DAILY [facility] Last Admin: 11/01/18 08:41 Dose: 5 mg Magnesium Hydroxide (Milk Of Magnesia) 30 ml PO Q12H PRN PRN Reason: Constipation Magnesium Sulfate (Pharmacy To Dose - Magnesium Replacement) 0 dose .XX ASDIRECTED PRN PRN Reason: RX TO WATCH MAG Metoprolol Tartrate (Lopressor) 25 mg PO BID [facility] Last Admin: 11/01/18 08:42 Dose: 25 mg Pantoprazole Sodium (Protonix) 40 mg PO ACBREAKFAST [facility] Last Admin: 11/01/18 06:36 Dose: 40 mg Rasagiline Mesylate [Azilect] 1 Mg*Pt Own Med* 0 each PO DAILY [facility] Last Admin: 11/01/18 08:43 Dose: 1 each Polyethylene Glycol (Miralax) 17 gm PO DAILY PRN PRN Reason: Constipation Potassium Chloride (Pharmacy To Dose - Potassium Replacement) 0 dose .XX ASDIRECTED PRN PRN Reason: RX TO WATCH K Promethazine HCl (Phenergan) 25 mg PO Q6H PRN PRN Reason: Nausea/Vomiting Rosuvastatin Calcium (Crestor) 40 mg PO DAILY [facility] Last Admin: 11/01/18 08:41 Dose: 40 mg Senna/Docusate Sodium (Senna Plus) 1 tab PO BID PRN PRN Reason: Constipation Tamsulosin HCl (Flomax) 0.4 mg PO DAILY [facility] Last Admin: 11/01/18 08:41 Dose: 0.4 mg Thiamine HCl (Vitamin B-1) 100 mg PO DAILY [facility] Last Admin: 11/01/18 08:41 Dose: 100 mg Vit A/Vit C/Vit E/Selen/Cu/Zn/Lutei (Icaps Mv) 1 tab PO DAILY [facility] Last Admin: 11/01/18 08:40 Dose: 1 tab Discontinued Medications Calcitriol (Rocaltrol) 0.25 mcg PO ASDIRECTED [facility] Carbidopa/Levodopa (Sinemet 25-100 Mg) 1.5 tab PO ONETIME ONE Stop: 10/28/18 20:31 Last Admin: 10/28/18 21:38 Dose: 1.5 tab Cyclobenzaprine HCl (Flexeril) 10 mg PO TID PRN PRN Reason: Muscle Spasm Last Admin: 10/30/18 16:30 Dose: 10 mg Donepezil HCl (Aricept) 5 mg PO ONETIME ONE Stop: 10/28/18 20:31 Last Admin: 10/28/18 21:39 Dose: 5 mg Haloperidol Lactate (Haldol) 2.5 mg IM Q8H PRN PRN Reason: Disruptive behavior Last Admin: 10/31/18 10:33 Dose: 2.5 mg Haloperidol Lactate (Haldol) Confirm Administered Dose 5 mg .ROUTE .STK-MED ONE Stop: 10/30/18 16:54 Last Admin: 10/30/18 17:30 Dose: Not Given Haloperidol Lactate (Haldol) 2.5 mg IM ONETIME ONE Stop: 10/30/18 17:04 Last Admin: 10/30/18 17:06 Dose: 2.5 mg Haloperidol Lactate (Haldol) 2.5 mg IVPUSH ONETIME ONE Stop: 10/30/18 17:13 Last Admin: 10/30/18 17:30 Dose: Not Given Haloperidol Lactate (Haldol) 2.5 mg IM ONETIME ONE Stop: 10/30/18 17:13 Last Admin: 10/30/18 17:14 Dose: 2.5 mg Haloperidol Lactate (Haldol) 5 mg IM Q6H PRN PRN Reason: Disruptive behavior Haloperidol Lactate (Haldol) 2.5 mg IM ONETIME ONE Stop: 10/31/18 10:49 Last Admin: 10/31/18 11:03 Dose: Not Given Haloperidol Lactate (Haldol) 2.5 mg IM Q6H PRN PRN Reason: Disruptive behavior Last Admin: 11/01/18 04:31 Dose: 2.5 mg Potassium Chloride (Klor-Con M20) 40 meq PO BID [facility] Stop: 10/28/18 21:01 Last Admin: 10/28/18 21:45 Dose: Not Given Potassium Chloride (Klor-Con M20) 40 meq PO ONETIME ONE Stop: 10/29/18 10:46 Last Admin: 10/29/18 10:48 Dose: 40 meq Quetiapine Fumarate (Seroquel) 25 mg PO Q6H PRN PRN Reason: Disruptive Behavior Last Admin: 10/31/18 02:45 Dose: 25 mg Tramadol HCl (Ultram) 50 mg PO Q6H [facility] Last Admin: 10/31/18 02:11 Dose: 50 mg Tramadol HCl (Ultram) 50 mg PO ONETIME ONE Stop: 10/30/18 20:31 Last Admin: 10/30/18 20:26 Dose: 50 mg Tramadol HCl (Ultram) 50 mg PO Q6H PRN PRN Reason: Pain - Exam General: Alert, Cooperative HEENT: Pupils Equal, Pupils Reactive Neck: Supple Lungs: Clear to Auscultation, Normal Respiratory Effort Cardiovascular: Regular Rate, Regular Rhythm GI/Abdominal Exam: Normal Bowel Sounds, Soft, Non-Tender, No Organomegaly, No Distention, No Abnormal Bruit (Male) Exam: Deferred Back Exam: Normal Inspection, Decreased Range of Motion Extremities: Normal Inspection, Non-Tender, No Pedal Edema, Normal Capillary Refill, Limited Range of Motion Peripheral Pulses: 2+: Dorsalis Pedis (L), Dorsalis Pedis (R) Skin: Warm, Dry, Intact Neurological: Other (inappropriate) Psy/Mental Status: Alert, Normal Affect, Normal Mood, Other - Problem List Review Problem List Initiated/Reviewed/Updated: Yes - My Orders Last 24 Hours: My Active Orders 10/31/18 12:25 Vital Signs [RC] Q6H - Plan Plan:: Assessment/Plan: Acute: Acute Agitation with Disruptive/Aggressive Behaviors * Has 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 Odell; Seroquel and Haldol have been discontinued * Conservative management did not work for him and the Seroquel 25 mg po BID; we felt the low dose Haldol was effective (not preferred if there are other alternatives) * Got called up for this issue pediatric social worker hours and okayed to give the IM Haldol; informed staff must get a hold of Dr. Odell to evaluate patient today * Numerous attempts to reach Dr. Odell these past weekends but w/o any success until this morning; he saw patient via tele-monitor and recommended Seroquel 12.5 mg po at 1400 and to call him for acute agitation * Continue Prevention * SW/CM to assess for possible change in placement status QT Prolongation * EKG on 10/30/2018 at 1741 shows sinus rhythm with QTc of 436--> EKG this AM shows sinus rhythm with QT of 468; corrected QT is 560 * 2/2 Psychotropic Medications plus Anti-psychotic Meds (Haldol/Seroquel) * Serial EKG as needed * Continue telemetry and monitor e-lytes (all normal this AM) Subdural Hematoma, Stable * Acute on Chronic (chronic portion appears to have occurred after previous CT on 08/07/2018) * Risk Factor: Parkinson's, Falls nearly daily x 6 months, daily x 2-3 weeks * CT head in ED: * 1. Acute subdural hematoma superimposed upon chronic left-sided subdural hematoma. This is an interval change from prior head CT study. This finding causes mild midline shift of approximately 7 mm. Thickness of the subdural collection is approximately 1 cm. * 2. Senescent change as noted above which is similar to prior head CT study. * 3. Increasing mucosal thickening within the paranasal sinuses most likely due to worsening chronic sinusitis. * Case discussed with Dr. Matamoros, Neurosurgeon at [facility] in ED: * Pt not good candidate for neurosurgery--> Pt would likely have difficulty w/ anesthesia and wouldn't be able to participate meaningfully w/ his recovery * Majority of the blood seems to be old * Most important thing is to keep pt from falling and hitting his head * Repeat CT scan in 1 week * Fall precautions; Up with assistance Failure to Thrive, Not true in my opinion * Patient looks healthy and in good shape * What perceives as "failure to thrive" is due to his underlying disease(s) taking its natural course as noted below * Risk Factors: Alzheimer's Dementia and Parkinson's Disease * Falls nearly daily x 6 months, daily x 2-3 weeks * Pt is set up to go to [facility], awaiting Medicaid paperwork--> [facility] has now declined placement * The pt's daughter doesn't feel he can safely remain at home any longer * CM/SW--> working on placement Chronic: Alzheimer's Dementia Parkinson's AAA s/p graft HTN HLD GERD BPH Arthritis Back pain Gout Plan: He remains clinically stable Routine AM Labs as needed CM/SW for placement PT/OT for deconditioning if appropriate Fall Precautions Dr. Odell now following for behavioral and psychiatric changes Sundowning Prevention DVT/GI prophylaxis Code Status: DNR/DNI; PCP: Dr. Alvarez The patient's Neurologist is Dr. Carlin LOS > 96hrs pending placement with recent changes in his behavioral and psychiatric status D/C Plan: * Repeat CT scan
[2018-11-01] MEDS: QUEtiapine 25 MG Tab PO SCH (14:27)
[2018-11-01] MEDS: Donepezil 10 MG Tab PO SCH (21:58)
[2018-11-02] MEDS: Carbidopa/Levodopa 25-100 MG Tab PO SCH ×5 (06:00→22:20)
[2018-11-02] MEDS: Pantoprazole 40 MG Tab.CR PO SCH (06:01)
[2018-11-02] MEDS: Acetaminophen 325 MG Tab PO PRN ×2 (06:01→11:07)
--- NOTE | 2018-11-02 08:13 | CONS ---
CONSULTING PHYSICIAN: Mark Odell MD DATE OF CONSULTATION: 11/01/2018 Psychiatric Evaluation This is a 60-minute inpatient telemedicine event. Site where the services are provided are [facility] in [place], [place]. Where the services are provided from are offices in [facility]. Length of time for this 60-minute inpatient telemedicine event is 60 minutes. IDENTIFICATION: The patient is an 83-year-old male who was admitted to the [facility] on 10/27/2018. He is seen for psychiatric evaluation per the request of the treatment team and staff attending, Dr. Rose. CHIEF COMPLAINT: "I do not know." HISTORY OF PRESENT ILLNESS: The patient is an 83-year-old male who was admitted to the [facility] Inpatient Med/Surg Unit on 10/27/2018 secondary for failure to thrive. Evidently, the patient had been living with his daughter and 12-year-old grandson in [place], [place], and the 3 of them have been living together for some time but recently the daughter is stating she has been having a harder time managing the patient because he has a combination of Alzheimer's and Parkinson's and it appears the condition has been worsening. Evidently, the patient has been falling daily for the past number of weeks and this has been worsening over the past 6 months. The patient has not been treated for his failure to thrive on the unit, but it is the opinion of members of the treatment team that he may not be able to go back to his previous living situation due to the worsening of his condition. 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 Apparently, the patient presents on the unit until about 3 in the afternoon and he begins to get very agitated. 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 On interview, the patient is alert and oriented x1 to person. He knows his date, but he is unable to articulate much else during the interview process. MEDICATIONS: At the time of presentation: 1. Aricept 5 mg at bedtime. 2. Sinemet 25/100 mg tabs 5 times per day. 3. Flomax 0.4 mg daily. ALLERGIES: No known drug allergies. PAST MEDICAL HISTORY: 1. Hypertension. 2. BPH. 3. High cholesterol. 4. Left-sided subdural hematoma with longstanding history. REVIEW OF SYSTEMS: Aside from cardiovascular, endocrine, genitourinary, and neuro all other major organ systems are negative at this point in time for acute difficulties or complications. FAMILY PSYCHIATRIC AND CD HISTORY: None reported. PAST PSYCHIATRIC AND CD HISTORY: None reported. SOCIAL HISTORY: The patient is born in [place], [place]. 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 His states that he had been living for the time now with his daughter and grandson in [place], [place]. MENTAL STATUS EXAM: The patient is an 83-year-old white male, in no apparent distress. Speech is of short duration of utterance and increased latency of response. The patient is cognitively oriented x1 to person but not to place or date. There is no abnormal motor movements or tics observed. Psychomotor activity is within normal limits. Gait and station are not observed. This patient is lying in bed during the course of the inpatient telemedicine consult. Mood is okay. Affect is tired and drowsy appearing. There is no behavioral or stated evidence of acute suicidal or homicidal ideation. No acute psychotic or paranoid symptoms. Thought processes are significant for dementia process and there are no acute manic symptoms or loose associations evident. Judgment and insight are impaired secondary to the patient's dementia process. Motivation for help is poor. VITALS: 107/72, 85, 14, 98.1 degrees. IMPRESSION: Scott I: Dementia, not otherwise specified, F03.90. Scott II: None. Scott III: 1. Hypertension. 2. Benign prostatic hypertrophy. 3. High cholesterol. 4. History of left-sided subdural hematoma with midline shift of long-standing nature 5. Parkinson's Disease. Scott IV: Severe. Scott V: 50. PLAN: 1. Recommend beginning a trial of Seroquel 12.5 mg q.1400 hours to see if this will help reduce the patient's severity of his sundowning syndrome and reduce symptom of agitation during the later afternoon hours. 2. Recommend that treatment team continue the Aricept 5 mg at bedtime as currently prescribed. 3. Recommend that the patient's treatment team continue other medications as prescribed and dose for his other medical conditions. 4. Would recommend as the patient is medically stabilized that the inpatient treatment team consider long-term placement for this patient as it appears given the severity of his dementia and his Parkinson's that he would require more structured living environment than going back to live with his daughter and granddaughter going forward. If treatment team encounters difficulty finding placement for patient in the local area senior living facilities , would also recommend that they even consider placing the patient at the [facility], as patient would be appropriate for this kind of setting given the severity of his dementia process and Parkinson's condition, and it is my understanding that there is an Alzheimer's unit at that facility. 5. Will continue to follow up with the patient on an as-needed basis going forward while he remains on the inpatient med/surg unit at [facility]. 6. Will follow up with the patient sooner if any complications in the interim. 7. Crisis plan is in place. MARIELLA /[id number]
[2018-11-02] MEDS ORDERED: Sodium Chloride 0.9% 500 ML IV ONE (08:47)
[2018-11-02] MEDS: Thiamine 100 MG Tab PO SCH (08:52)
[2018-11-02] MEDS: Rosuvastatin 10 MG Tab PO SCH (08:53)
[2018-11-02] MEDS: Allopurinol 100 MG Tab PO SCH ×2 (08:53→22:22)
[2018-11-02] MEDS: Tamsulosin 0.4 MG Cap.ER PO SCH (08:53)
[2018-11-02] MEDS: Hydrochlorothiazide 25 MG Tab PO SCH (08:53)
[2018-11-02] MEDS: RASAGILINE MESYLATE 1 MG PO SCH (08:54)
[2018-11-02] MEDS: Cholecalciferol (Vitamin D3) 1,000 Unit Tab PO SCH (08:54)
[2018-11-02] MEDS: Multivitamins with Minerals/Folic Acid/Lutein/Zeaxanth Tab PO SCH (08:55)
[2018-11-02] MEDS: Metoprolol Tartrate 25 MG Tab PO SCH ×2 (08:55→22:22)
[2018-11-02] MEDS: Lisinopril 5 MG Tab PO SCH (08:56)
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
[2018-11-02] MEDS: QUEtiapine 25 MG Tab PO SCH (13:28)
[2018-11-02] MEDS: Cyclobenzaprine 10 MG Tab PO SCH ×2 (16:03→22:21)
[2018-11-02] MEDS ORDERED: Benztropine 1 MG Tab PO ONE (17:48)
[2018-11-02] MEDS: Donepezil 10 MG Tab PO SCH (22:20)
[2018-11-02] MEDS: Benztropine 1 MG Tab PO SCH (22:20)
[2018-11-03] MEDS: Pantoprazole 40 MG Tab.CR PO SCH (06:00)
[2018-11-03] MEDS: Carbidopa/Levodopa 25-100 MG Tab PO SCH ×4 (06:00→18:30)
[2018-11-03] MEDS: Lisinopril 5 MG Tab PO SCH (08:11)
[2018-11-03] MEDS: Benztropine 1 MG Tab PO SCH (08:11)
[2018-11-03] MEDS: Multivitamins with Minerals/Folic Acid/Lutein/Zeaxanth Tab PO SCH (08:11)
[2018-11-03] MEDS: Rosuvastatin 10 MG Tab PO SCH (08:11)
[2018-11-03] MEDS: Thiamine 100 MG Tab PO SCH (08:11)
[2018-11-03] MEDS: Hydrochlorothiazide 25 MG Tab PO SCH (08:11)
[2018-11-03] MEDS: Tamsulosin 0.4 MG Cap.ER PO SCH (08:12)
[2018-11-03] MEDS: Cyclobenzaprine 10 MG Tab PO SCH ×2 (08:12→14:37)
[2018-11-03] MEDS: Metoprolol Tartrate 25 MG Tab PO SCH (08:12)
[2018-11-03] MEDS: Allopurinol 100 MG Tab PO SCH (08:13)
[2018-11-03] MEDS: Cholecalciferol (Vitamin D3) 1,000 Unit Tab PO SCH (08:13)
[2018-11-03] MEDS: Acetaminophen 325 MG Tab PO PRN ×3 (08:13→18:30)
[2018-11-03] MEDS: RASAGILINE MESYLATE 1 MG PO SCH (08:41)
--- NOTE | 2018-11-03 10:16 | PCM.PN ---
- General Info Date of Service: 11/03/18 Admission Dx/Problem (Free Text): Admission Diagnosis/Problem Admission Diagnosis/Problem Failure to thrive in adult Subjective Update: Follow Up Functional Status: Reports: Pain Controlled, Tolerating Diet, Urinating, New Symptoms - Review of Systems General: Reports: Weakness. Denies: Fever, Chills HEENT: Reports: No Symptoms Pulmonary: Denies: Shortness of Breath, Cough Cardiovascular: Denies: Chest Pain, Dyspnea on Exertion, Lightheadedness Gastrointestinal: Denies: Abdominal Pain, Nausea, Vomiting Genitourinary: Reports: No Symptoms Musculoskeletal: Reports: No Symptoms Skin: Denies: Cyanosis Neurological: Reports: Confusion, Difficulty Walking, Gait Disturbance Psychiatric: Denies: Anxiety, Agitation Systems Review Comment:: He was restless at least for 2-3 hrs overnight per day nurse. He stays in bed but "he is up and down" and does not seem to get or crawl out of bed. He also is not combative or aggressive like these past weekends. However he seems more confused this morning and mumbles. He seems to be more weak as well. His repeat CT scan shows decreased acute brain bleed. His AM labs are way better this morning. He is eating and drinking okay but with assistance. - Patient Data Vitals - Most Recent: Last Vital Signs Temp 36.4 C 11/03/18 08:08 Pulse 67 11/03/18 08:12 Resp 14 11/03/18 08:08 BP 110/78 11/03/18 08:12 Pulse Ox 100 11/03/18 08:08 Weight - Most Recent: 74.871 kg I&O - Last 24 Hours: Intake & Output 11/02/18 11/03/18 11/03/18 22:59 06:59 14:59 Intake Total 400 200 Balance 400 200 Lab Results Last 24 Hours: Laboratory Results - last 24 hr 11/03/18 Range/Units 05:52 Sodium 141 (136-145) mEq/L Potassium 4.2 (3.5-5.1) mEq/L Chloride 106 (98-107) mEq/L Carbon Dioxide 25 (21-32) mEq/L Anion Gap 14.2 (5-15) BUN 36 H (7-18) mg/dL Creatinine 1.3 (0.7-1.3) mg/dL Est Cr Clr Drug Dosing 45.59 mL/min Estimated GFR (MDRD) 53 (>60) mL/min BUN/Creatinine Ratio 27.7 H (14-18) Glucose 111 (83-115) mg/dL Calcium 9.6 (8.5-10.1) mg/dL Magnesium 1.9 (1.8-2.4) mg/dl Med Orders - Current: Current Medications Acetaminophen (Tylenol) 650 mg PO Q4H PRN PRN Reason: Pain (Mild 1-3)/fever Last Admin: 11/03/18 08:13 Dose: 650 mg Allopurinol (Zyloprim) 100 mg PO BID [facility] Last Admin: 11/03/18 08:13 Dose: 100 mg Benztropine Mesylate (Cogentin) 1 mg PO BID [facility] Last Admin: 11/03/18 08:11 Dose: 1 mg Bisacodyl (Dulcolax) 5 mg PO DAILY PRN PRN Reason: Constipation Calcitriol (Rocaltrol) 0.25 mcg PO SuTh@0900 [facility] Last Admin: 10/31/18 08:28 Dose: 0.25 mcg Carbidopa/Levodopa (Sinemet 25-100 Mg) 1.5 tab PO 0700,1100,1500 [facility] Last Admin: 11/03/18 06:00 Dose: 1.5 tab Carbidopa/Levodopa (Sinemet 25-100 Mg) 1.5 tab PO 1900,2300 [facility] Last Admin: 11/02/18 22:20 Dose: 1.5 tab Cholecalciferol (Vitamin D3) 2,000 units PO DAILY [facility] Last Admin: 11/03/18 08:13 Dose: 2,000 units Cyclobenzaprine HCl (Flexeril) 5 mg PO TID [facility] Last Admin: 11/03/18 08:12 Dose: 5 mg Docusate Sodium (Colace) 100 mg PO BID PRN PRN Reason: Constipation Last Admin: 10/31/18 08:28 Dose: 100 mg Donepezil HCl (Aricept) 5 mg PO BEDTIME [facility] Last Admin: 11/02/18 22:20 Dose: 5 mg Hydrochlorothiazide (Hydrochlorothiazide) 25 mg PO DAILY [facility] Last Admin: 11/03/18 08:11 Dose: 25 mg Promethazine HCl 6.25 mg/ (Sodium Chloride) 50.25 mls @ 100 mls/hr IV Q6H PRN PRN Reason: Nausea/Vomiting Lisinopril (Prinivil) 5 mg PO DAILY [facility] Last Admin: 11/03/18 08:11 Dose: 5 mg Magnesium Hydroxide (Milk Of Magnesia) 30 ml PO Q12H PRN PRN Reason: Constipation Magnesium Sulfate (Pharmacy To Dose - Magnesium Replacement) 0 dose .XX ASDIRECTED PRN PRN Reason: RX TO WATCH MAG Metoprolol Tartrate (Lopressor) 25 mg PO BID [facility] Last Admin: 11/03/18 08:12 Dose: 25 mg Pantoprazole Sodium (Protonix) 40 mg PO ACBREAKFAST [facility] Last Admin: 11/03/18 06:00 Dose: 40 mg Rasagiline Mesylate [Azilect] 1 Mg*Pt Own Med* 0 each PO DAILY [facility] Last Admin: 11/02/18 08:54 Dose: 1 each Polyethylene Glycol (Miralax) 17 gm PO DAILY PRN PRN Reason: Constipation Potassium Chloride (Pharmacy To Dose - Potassium Replacement) 0 dose .XX ASDIRECTED PRN PRN Reason: RX TO WATCH K Promethazine HCl (Phenergan) 25 mg PO Q6H PRN PRN Reason: Nausea/Vomiting Rosuvastatin Calcium (Crestor) 40 mg PO DAILY [facility] Last Admin: 11/03/18 08:11 Dose: 40 mg Senna/Docusate Sodium (Senna Plus) 1 tab PO BID PRN PRN Reason: Constipation Tamsulosin HCl (Flomax) 0.4 mg PO DAILY [facility] Last Admin: 11/03/18 08:12 Dose: 0.4 mg Thiamine HCl (Vitamin B-1) 100 mg PO DAILY [facility] Last Admin: 11/03/18 08:11 Dose: 100 mg Vit A/Vit C/Vit E/Selen/Cu/Zn/Lutei (Icaps Mv) 1 tab PO DAILY [facility] Last Admin: 11/03/18 08:11 Dose: 1 tab Discontinued Medications Benztropine Mesylate (Cogentin) 1 mg PO ONETIME ONE Stop: 11/02/18 17:49 Last Admin: 11/02/18 18:49 Dose: 1 mg Calcitriol (Rocaltrol) 0.25 mcg PO ASDIRECTED [facility] Carbidopa/Levodopa (Sinemet 25-100 Mg) 1.5 tab PO ONETIME ONE Stop: 10/28/18 20:31 Last Admin: 10/28/18 21:38 Dose: 1.5 tab Cyclobenzaprine HCl (Flexeril) 10 mg PO TID PRN PRN Reason: Muscle Spasm Last Admin: 10/30/18 16:30 Dose: 10 mg Donepezil HCl (Aricept) 5 mg PO ONETIME ONE Stop: 10/28/18 20:31 Last Admin: 10/28/18 21:39 Dose: 5 mg Haloperidol Lactate (Haldol) 2.5 mg IM Q8H PRN PRN Reason: Disruptive behavior Last Admin: 10/31/18 10:33 Dose: 2.5 mg Haloperidol Lactate (Haldol) Confirm Administered Dose 5 mg .ROUTE .STK-MED ONE Stop: 10/30/18 16:54 Last Admin: 10/30/18 17:30 Dose: Not Given Haloperidol Lactate (Haldol) 2.5 mg IM ONETIME ONE Stop: 10/30/18 17:04 Last Admin: 10/30/18 17:06 Dose: 2.5 mg Haloperidol Lactate (Haldol) 2.5 mg IVPUSH ONETIME ONE Stop: 10/30/18 17:13 Last Admin: 10/30/18 17:30 Dose: Not Given Haloperidol Lactate (Haldol) 2.5 mg IM ONETIME ONE Stop: 10/30/18 17:13 Last Admin: 10/30/18 17:14 Dose: 2.5 mg Haloperidol Lactate (Haldol) 5 mg IM Q6H PRN PRN Reason: Disruptive behavior Haloperidol Lactate (Haldol) 2.5 mg IM ONETIME ONE Stop: 10/31/18 10:49 Last Admin: 10/31/18 11:03 Dose: Not Given Haloperidol Lactate (Haldol) 2.5 mg IM Q6H PRN PRN Reason: Disruptive behavior Last Admin: 11/01/18 04:31 Dose: 2.5 mg Sodium Chloride (Normal Saline) 500 mls @ 999 mls/hr IV .BOLUS ONE Stop: 11/02/18 09:17 Last Admin: 11/02/18 09:06 Dose: 999 mls/hr Potassium Chloride (Klor-Con M20) 40 meq PO BID [facility] Stop: 10/28/18 21:01 Last Admin: 10/28/18 21:45 Dose: Not Given Potassium Chloride (Klor-Con M20) 40 meq PO ONETIME ONE Stop: 10/29/18 10:46 Last Admin: 10/29/18 10:48 Dose: 40 meq Quetiapine Fumarate (Seroquel) 25 mg PO Q6H PRN PRN Reason: Disruptive Behavior Last Admin: 10/31/18 02:45 Dose: 25 mg Quetiapine Fumarate (Seroquel) 12.5 mg PO DAILY@1400 [facility] Last Admin: 11/02/18 13:28 Dose: 12.5 mg Tramadol HCl (Ultram) 50 mg PO Q6H [facility] Last Admin: 10/31/18 02:11 Dose: 50 mg Tramadol HCl (Ultram) 50 mg PO ONETIME ONE Stop: 10/30/18 20:31 Last Admin: 10/30/18 20:26 Dose: 50 mg Tramadol HCl (Ultram) 50 mg PO Q6H PRN PRN Reason: Pain - Exam General: Lethargic HEENT: Pupils Equal, Pupils Reactive Neck: Supple Lungs: Normal Respiratory Effort, Decreased Breath Sounds Cardiovascular: Regular Rate, Regular Rhythm GI/Abdominal Exam: Normal Bowel Sounds, Soft, Non-Tender, No Organomegaly, No Distention, No Abnormal Bruit, Guarding (Male) Exam: Deferred Back Exam: Other (deferred) Extremities: Normal Inspection, Normal Range of Motion, Non-Tender, No Pedal Edema, Normal Capillary Refill Peripheral Pulses: 2+: Dorsalis Pedis (L), Dorsalis Pedis (R) Skin: Warm, Dry, Intact Neurological: Other (not able to follow commands ) Psy/Mental Status: No: Anxious, Agitated, Withdrawal Symptoms Physical Findings Comments:: More confused; not able to answer yes or no. He now mumbles. - Problem List Review Problem List Initiated/Reviewed/Updated: Yes - My Orders Last 24 Hours: My Active Orders 11/02/18 10:34 Patient Status [ADT] Routine 11/02/18 15:00 Cyclobenzaprine [Flexeril] 5 mg PO TID 11/02/18 21:00 Benztropine [Cogentin] 1 mg PO BID 11/03/18 08:00 Head wo Cont [CT] Routine 11/04/18 05:11 BMP [BASIC METABOLIC PANEL,BMP] [CHEM] AM MG [MAGNESIUM] [CHEM] AM - Plan Plan:: Assessment/Plan: Acute: Agitation with Disruptive/Aggressive Behaviors, Somewhat Improved * At this point, I firmly believed this is related to his Severe Alzheimer's Dementia and Parkinson's Disease/Parkinsonian Features * These behaviors were exhibited prior to the administration of the anti- psychotics medications; in fact it was our last resort * On Aricept 5 mg po QHS and Sinemet 1.5 tab 0700 QID (0700, 1100, 1900 and 2300 ) for home maintenance medications * Failed conservative management; failed trial of Seroquel * Good response to low dose Haldol but Dr. Odell is not in favor of using it and so do I * Currently on 1mg Cogentin BID and Sundowning Prevention/Behavior Modification Techniques; * So far overnight no aggressiveness or combative behaviors observed per nurse * Dr. Odell continues to follow him * Continue Sundowning Prevention * SW/CM to assess for possible change in placement status Subdural Hematoma, Stable and Improved * Acute on Chronic (chronic portion appears to have occurred after previous CT on 08/07/2018) * Risk Factor: Parkinson's, Falls nearly daily x 6 months, daily x 2-3 weeks * CT head in ED: * 1. Acute subdural hematoma superimposed upon chronic left-sided subdural hematoma. This is an interval change from prior head CT study. This finding causes mild midline shift of approximately 7 mm. Thickness of the subdural collection is approximately 1 cm. * 2. Senescent change as noted above which is similar to prior head CT study. * 3. Increasing mucosal thickening within the paranasal sinuses most likely due to worsening chronic sinusitis. * Case discussed with Dr. Matamoros, Neurosurgeon at [facility] in ED: * Pt not good candidate for neurosurgery--> Pt would likely have difficulty w/ anesthesia and wouldn't be able to participate meaningfully w/ his recovery * Majority of the blood seems to be old * Most important thing is to keep pt from falling and hitting his head * Repeat CT scan this AM shows decreased acute brain bleed * Fall precautions; Up with assistance Confusion * 10/30 Cogentin plus Flexeril--> Anticholinergic and Sedation/Drowsiness * Aspiration and Fall Precaution * Consider low dose stimulant??; we will discuss with daughter when she gets here QT Prolongation, Continues to Improve * EKG on 10/30/2018 at 1741 shows sinus rhythm with QTc of 436--> EKG this AM shows sinus rhythm with QT of 468; corrected QT is 560 * EKG this AM 11/03/2018 at 1309 shows sinus rhythm with QTc of 444 (< or equal to 430 for men)-almost at normal range * He is no longer on any anti-psychotic medications except for Aricept and Sinemet; this could be his new baseline * Serial EKG as needed * Continue telemetry and monitor e-lytes (all normal this AM) Resolved: S/p Watery Diarrhea * C. Diff negative on screening * He is not getting antibiotics or diabetics oral agents * Suspect 2/2 stress * Monitor S/p Renal Insufficiency * 2/2 GI Loss form Diarrhea and Inadequate oral intake * IV Bolus with 1L NS; will avoid maintenance as he pulls IV access out * May repeat labs this afternoon * Advised staff to encourage patient to drink fluids S/p Failure to Thrive, Not true in my opinion * Patient looks healthy and in good shape * What perceives as "failure to thrive" is due to his underlying disease(s) taking its natural course as noted below * Risk Factors: Alzheimer's Dementia and Parkinson's Disease * Falls nearly daily x 6 months, daily x 2-3 weeks * Pt is set up to go to [facility], awaiting Medicaid paperwork--> [facility] has now declined placement * The pt's daughter doesn't feel he can safely remain at home any longer * CM/SW--> working on placement Chronic: Alzheimer's Dementia Parkinson's AAA s/p graft HTN HLD GERD BPH Arthritis Back pain Gout Plan: He is hemodynamically stable but not clinically Routine AM Labs as needed CM/SW for placement Aspiration/Fall Precautions Continue Prevention DVT/GI prophylaxis Code Status: DNR/DNI; PCP: Dr. Alvarez The patient's Neurologist is Dr. Carlin Called daughter today and discussed details of her dad's clinical progress and disruptive behaviors associated due to his worsening Alzheimer's dementia and Parkinson's disease. She was informed that Dr. Odell and I are currently working on controlling his dementia associated behaviors but if unsuccessful, he may have to go to a [facility]iatric [facility] for further management before any nursing homes would take him. Also discussed with her result of repeat head CT scan this AM, which is essentially decreased acute brain bleed.
--- NOTE | 2018-11-03 11:04 | CT ---
Head CT Technique: Multiple axial sections through the brain were obtained. Intravenous contrast was not utilized. Comparison: Prior head CT study of 10/27/18. Stable subdural fluid collection seen on the left side. Diminished density along the leptomeninges is seen compatible with resolving blood. Overall thickness is stable. Minimal midline shift remains. Ventricles along with basal cisterns and sulci over the convexities are moderately prominent. Diminished density is noted within portions of the periventricular white matter compatible with small vessel ischemic demyelination change. 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 Atherosclerotic calcification is noted within the vertebral vessels and carotid siphon. No acute calvarial abnormality is seen. Impression: 1. Decreased acute blood within previous subdural fluid collection on the left side. Overall size is stable from previous exam. Mild midline shift remains. 2. Senescent change as noted above. Diagnostic code #3
[2018-11-04] MEDS: Donepezil 10 MG Tab PO SCH ×2 (00:49→20:01)
[2018-11-04] MEDS: Benztropine 1 MG Tab PO SCH ×3 (00:49→20:01)
[2018-11-04] MEDS: Carbidopa/Levodopa 25-100 MG Tab PO SCH ×6 (00:50→22:59)
[2018-11-04] MEDS: Cyclobenzaprine 10 MG Tab PO SCH ×4 (00:50→20:00)
[2018-11-04] MEDS: Metoprolol Tartrate 25 MG Tab PO SCH ×3 (00:50→20:00)
[2018-11-04] MEDS: Allopurinol 100 MG Tab PO SCH ×3 (00:50→20:00)
[2018-11-04] MEDS: Pantoprazole 40 MG Tab.CR PO SCH (06:45)
[2018-11-04] MEDS: Rosuvastatin 10 MG Tab PO SCH (08:21)
[2018-11-04] MEDS: Multivitamins with Minerals/Folic Acid/Lutein/Zeaxanth Tab PO SCH (08:21)
[2018-11-04] MEDS: Cholecalciferol (Vitamin D3) 1,000 Unit Tab PO SCH (08:21)
[2018-11-04] MEDS: Tamsulosin 0.4 MG Cap.ER PO SCH (08:21)
[2018-11-04] MEDS: Hydrochlorothiazide 25 MG Tab PO SCH (08:22)
[2018-11-04] MEDS: Calcitriol 0.25 MCG Cap PO SCH (08:22)
[2018-11-04] MEDS: Thiamine 100 MG Tab PO SCH (08:22)
[2018-11-04] MEDS: RASAGILINE MESYLATE 1 MG PO SCH (08:23)
[2018-11-04] MEDS ORDERED: LORazepam 2 MG/ML SDV IVPUSH ONE (08:25)
[2018-11-04] MEDS: Lisinopril 5 MG Tab PO SCH (08:33)
--- NOTE | 2018-11-04 08:49 | PCM.PN ---
- General Info Date of Service: 11/04/18 Admission Dx/Problem (Free Text): Admission Diagnosis/Problem Admission Diagnosis/Problem Failure to thrive in adult Subjective Update: Follow Up Functional Status: Reports: Pain Controlled, Tolerating Diet, Ambulating, Urinating. Denies: New Symptoms - Review of Systems General: Denies: Fever, Chills HEENT: Reports: No Symptoms Pulmonary: Denies: Shortness of Breath Cardiovascular: Denies: Chest Pain, Dyspnea on Exertion, Lightheadedness Gastrointestinal: Denies: Abdominal Pain, Nausea, Vomiting Genitourinary: Reports: No Symptoms Musculoskeletal: Reports: No Symptoms Skin: Denies: Cyanosis, Pallor, Diaphoresis Neurological: Reports: Confusion, Gait Disturbance. Denies: Difficulty Walking , Weakness Psychiatric: Reports: Confusion, Agitation. Denies: Anxiety, Hallucinations, Suicidal Ideation, Homicidal Ideation Systems Review Comment:: Has had an acute agitation/aggression overnight and this morning, he had a similar episode. He was attempting to leave and it took 4-5 staff to stop him from getting out his room. He was wanting to go home. He clinically he is otherwise stable. - Patient Data Vitals - Most Recent: Last Vital Signs Temp 36.7 C 11/04/18 03:58 Pulse 89 11/04/18 08:33 Resp 18 11/04/18 03:58 BP 139/99 H 11/04/18 08:33 Pulse Ox 98 11/04/18 03:58 Weight - Most Recent: 74.389 kg I&O - Last 24 Hours: Intake & Output 11/03/18 11/04/18 11/04/18 22:59 06:59 14:59 Intake Total 800 100 Balance 800 100 Lab Results Last 24 Hours: Laboratory Results - last 24 hr 11/04/18 Range/Units 05:59 Sodium 142 (136-145) mEq/L Potassium 5.1 (3.5-5.1) mEq/L Chloride 105 (98-107) mEq/L Carbon Dioxide 28 (21-32) mEq/L Anion Gap 14.1 (5-15) BUN 39 H (7-18) mg/dL Creatinine 1.2 (0.7-1.3) mg/dL Est Cr Clr Drug Dosing 49.08 mL/min Estimated GFR (MDRD) 58 (>60) mL/min BUN/Creatinine Ratio 32.5 H (14-18) Glucose 109 (83-115) mg/dL Calcium 9.6 (8.5-10.1) mg/dL Magnesium 1.8 (1.8-2.4) mg/dl Med Orders - Current: Current Medications Acetaminophen (Tylenol) 650 mg PO Q4H PRN PRN Reason: Pain (Mild 1-3)/fever Last Admin: 11/03/18 18:30 Dose: 650 mg Allopurinol (Zyloprim) 100 mg PO BID [facility] Last Admin: 11/04/18 08:21 Dose: 100 mg Benztropine Mesylate (Cogentin) 1 mg PO BID [facility] Last Admin: 11/04/18 08:20 Dose: 1 mg Bisacodyl (Dulcolax) 5 mg PO DAILY PRN PRN Reason: Constipation Calcitriol (Rocaltrol) 0.25 mcg PO SuTh@0900 [facility] Last Admin: 11/04/18 08:22 Dose: 0.25 mcg Carbidopa/Levodopa (Sinemet 25-100 Mg) 1.5 tab PO 0700,1100,1500 [facility] Last Admin: 11/04/18 06:45 Dose: 1.5 tab Carbidopa/Levodopa (Sinemet 25-100 Mg) 1.5 tab PO 1900,2300 [facility] Last Admin: 11/04/18 00:50 Dose: Not Given Cholecalciferol (Vitamin D3) 2,000 units PO DAILY [facility] Last Admin: 11/04/18 08:21 Dose: 2,000 units Cyclobenzaprine HCl (Flexeril) 5 mg PO TID [facility] Last Admin: 11/04/18 08:21 Dose: 5 mg Docusate Sodium (Colace) 100 mg PO BID PRN PRN Reason: Constipation Last Admin: 10/31/18 08:28 Dose: 100 mg Donepezil HCl (Aricept) 5 mg PO BEDTIME [facility] Last Admin: 11/04/18 00:49 Dose: Not Given Hydrochlorothiazide (Hydrochlorothiazide) 25 mg PO DAILY [facility] Last Admin: 11/04/18 08:22 Dose: 25 mg Promethazine HCl 6.25 mg/ (Sodium Chloride) 50.25 mls @ 100 mls/hr IV Q6H PRN PRN Reason: Nausea/Vomiting Lisinopril (Prinivil) 5 mg PO DAILY [facility] Last Admin: 11/04/18 08:33 Dose: 5 mg Magnesium Hydroxide (Milk Of Magnesia) 30 ml PO Q12H PRN PRN Reason: Constipation Magnesium Sulfate (Pharmacy To Dose - Magnesium Replacement) 0 dose .XX ASDIRECTED PRN PRN Reason: RX TO WATCH MAG Metoprolol Tartrate (Lopressor) 25 mg PO BID [facility] Last Admin: 11/04/18 08:33 Dose: 25 mg Pantoprazole Sodium (Protonix) 40 mg PO ACBREAKFAST [facility] Last Admin: 11/04/18 06:45 Dose: 40 mg Rasagiline Mesylate [Azilect] 1 Mg*Pt Own Med* 0 each PO DAILY [facility] Last Admin: 11/04/18 08:23 Dose: 1 each Polyethylene Glycol (Miralax) 17 gm PO DAILY PRN PRN Reason: Constipation Potassium Chloride (Pharmacy To Dose - Potassium Replacement) 0 dose .XX ASDIRECTED PRN PRN Reason: RX TO WATCH K Promethazine HCl (Phenergan) 25 mg PO Q6H PRN PRN Reason: Nausea/Vomiting Rosuvastatin Calcium (Crestor) 40 mg PO DAILY [facility] Last Admin: 11/04/18 08:21 Dose: 40 mg Senna/Docusate Sodium (Senna Plus) 1 tab PO BID PRN PRN Reason: Constipation Tamsulosin HCl (Flomax) 0.4 mg PO DAILY [facility] Last Admin: 11/04/18 08:21 Dose: 0.4 mg Thiamine HCl (Vitamin B-1) 100 mg PO DAILY [facility] Last Admin: 11/04/18 08:22 Dose: 100 mg Vit A/Vit C/Vit E/Selen/Cu/Zn/Lutei (Icaps Mv) 1 tab PO DAILY [facility] Last Admin: 11/04/18 08:21 Dose: 1 tab Discontinued Medications Benztropine Mesylate (Cogentin) 1 mg PO ONETIME ONE Stop: 11/02/18 17:49 Last Admin: 11/02/18 18:49 Dose: 1 mg Calcitriol (Rocaltrol) 0.25 mcg PO ASDIRECTED [facility] Carbidopa/Levodopa (Sinemet 25-100 Mg) 1.5 tab PO ONETIME ONE Stop: 10/28/18 20:31 Last Admin: 10/28/18 21:38 Dose: 1.5 tab Cyclobenzaprine HCl (Flexeril) 10 mg PO TID PRN PRN Reason: Muscle Spasm Last Admin: 10/30/18 16:30 Dose: 10 mg Donepezil HCl (Aricept) 5 mg PO ONETIME ONE Stop: 10/28/18 20:31 Last Admin: 10/28/18 21:39 Dose: 5 mg Haloperidol Lactate (Haldol) 2.5 mg IM Q8H PRN PRN Reason: Disruptive behavior Last Admin: 10/31/18 10:33 Dose: 2.5 mg Haloperidol Lactate (Haldol) Confirm Administered Dose 5 mg .ROUTE .STK-MED ONE Stop: 10/30/18 16:54 Last Admin: 10/30/18 17:30 Dose: Not Given Haloperidol Lactate (Haldol) 2.5 mg IM ONETIME ONE Stop: 10/30/18 17:04 Last Admin: 10/30/18 17:06 Dose: 2.5 mg Haloperidol Lactate (Haldol) 2.5 mg IVPUSH ONETIME ONE Stop: 10/30/18 17:13 Last Admin: 10/30/18 17:30 Dose: Not Given Haloperidol Lactate (Haldol) 2.5 mg IM ONETIME ONE Stop: 10/30/18 17:13 Last Admin: 10/30/18 17:14 Dose: 2.5 mg Haloperidol Lactate (Haldol) 5 mg IM Q6H PRN PRN Reason: Disruptive behavior Haloperidol Lactate (Haldol) 2.5 mg IM ONETIME ONE Stop: 10/31/18 10:49 Last Admin: 10/31/18 11:03 Dose: Not Given Haloperidol Lactate (Haldol) 2.5 mg IM Q6H PRN PRN Reason: Disruptive behavior Last Admin: 11/01/18 04:31 Dose: 2.5 mg Sodium Chloride (Normal Saline) 500 mls @ 999 mls/hr IV .BOLUS ONE Stop: 11/02/18 09:17 Last Admin: 11/02/18 09:06 Dose: 999 mls/hr Lorazepam (Ativan) 0.25 mg IVPUSH ONETIME ONE Stop: 11/04/18 08:26 Last Admin: 11/04/18 08:30 Dose: 0.5 mg Potassium Chloride (Klor-Con M20) 40 meq PO BID [facility] Stop: 10/28/18 21:01 Last Admin: 10/28/18 21:45 Dose: Not Given Potassium Chloride (Klor-Con M20) 40 meq PO ONETIME ONE Stop: 10/29/18 10:46 Last Admin: 10/29/18 10:48 Dose: 40 meq Quetiapine Fumarate (Seroquel) 25 mg PO Q6H PRN PRN Reason: Disruptive Behavior Last Admin: 10/31/18 02:45 Dose: 25 mg Quetiapine Fumarate (Seroquel) 12.5 mg PO DAILY@1400 [facility] Last Admin: 11/02/18 13:28 Dose: 12.5 mg Tramadol HCl (Ultram) 50 mg PO Q6H [facility] Last Admin: 10/31/18 02:11 Dose: 50 mg Tramadol HCl (Ultram) 50 mg PO ONETIME ONE Stop: 10/30/18 20:31 Last Admin: 10/30/18 20:26 Dose: 50 mg Tramadol HCl (Ultram) 50 mg PO Q6H PRN PRN Reason: Pain - Exam General: Alert, Moderate Distress, Other (He is only on his diapers ). No: Cooperative HEENT: Pupils Equal, Pupils Reactive Neck: Supple Lungs: Clear to Auscultation, Normal Respiratory Effort Cardiovascular: Regular Rate, Tachycardia GI/Abdominal Exam: Normal Bowel Sounds, Soft, Non-Tender, No Organomegaly, No Distention, No Abnormal Bruit (Male) Exam: Deferred Back Exam: Normal Inspection Extremities: Normal Inspection, Normal Range of Motion, Non-Tender, No Pedal Edema, Normal Capillary Refill Peripheral Pulses: 2+: Dorsalis Pedis (L), Dorsalis Pedis (R) Skin: Warm, Dry, Intact Neurological: No: Normal Gait Psy/Mental Status: Alert, Agitated, Other (agitated and agressive). No: Anxious , Hallucinations, Withdrawal Symptoms - Problem List Review Problem List Initiated/Reviewed/Updated: Yes - My Orders Last 24 Hours: My Active Orders 11/03/18 11:41 EKG 12 Lead [EKG Documentation Completion] [RC] AM 11/03/18 12:53 EKG 12 Lead [EKG Documentation Completion] [RC] ROUTINE 11/03/18 12:54 EKG 12 Lead [EK] Stat 11/03/18 12:55 EKG Documentation Completion [RC] ASDIRECTED - Plan Plan:: Assessment/Plan: Acute: Agitation with Disruptive/Aggressive Behaviors, Uncontrolled * At this point, I firmly believed this is related to his Severe Alzheimer's Dementia and Parkinson's Disease/Parkinsonian Features * These behaviors were exhibited prior to the administration of the anti- psychotics medications; in fact it was our last resort * On Aricept 5 mg po QHS and Sinemet 1.5 tab 0700 QID (0700, 1100, 1900 and 2300 ) for home maintenance medications * Failed conservative management; failed trial of Seroquel * Good response to low dose Haldol but Dr. Odell is not in favor of using it and so do I * Currently on 1mg Cogentin BID and Sundowning Prevention/Behavior Modification Techniques; * He had 2 episode last night and this morning; he responded to low dose Ativan x1 in AM (avoided anti-psychotic medications) * Dr. Odell continues to follow him * Continue Sundowning Prevention * SW/CM to assess for possible change in placement status Subdural Hematoma, Stable and Improved * Acute on Chronic (chronic portion appears to have occurred after previous CT on 08/07/2018) * Risk Factor: Parkinson's, Falls nearly daily x 6 months, daily x 2-3 weeks * CT head in ED: * 1. Acute subdural hematoma superimposed upon chronic left-sided subdural hematoma. This is an interval change from prior head CT study. This finding causes mild midline shift of approximately 7 mm. Thickness of the subdural collection is approximately 1 cm. * 2. Senescent change as noted above which is similar to prior head CT study. * 3. Increasing mucosal thickening within the paranasal sinuses most likely due to worsening chronic sinusitis. * Case discussed with Dr. Matamoros, Neurosurgeon at [facility] in ED: * Pt not good candidate for neurosurgery--> Pt would likely have difficulty w/ anesthesia and wouldn't be able to participate meaningfully w/ his recovery * Majority of the blood seems to be old * Most important thing is to keep pt from falling and hitting his head * Repeat CT scan this AM shows decreased acute brain bleed * Fall precautions; Up with assistance Confusion, Improved * 2/2 Cogentin plus Flexeril--> Anticholinergic and Sedation/Drowsiness * Aspiration and Fall Precaution * He did not get his Cogentin last not; he was up all night and woke up agitated /disruptive this AM Resolved: S/p Watery Diarrhea * C. Diff negative on screening * He is not getting antibiotics or diabetics oral agents * Suspect 2/2 stress * Monitor S/p Renal Insufficiency * 2/2 GI Loss form Diarrhea and Inadequate oral intake * IV Bolus with 1L NS; will avoid maintenance as he pulls IV access out * May repeat labs this afternoon * Advised staff to encourage patient to drink fluids S/p Failure to Thrive, Not true in my opinion * Patient looks healthy and in good shape * What perceives as "failure to thrive" is due to his underlying disease(s) taking its natural course as noted below * Risk Factors: Alzheimer's Dementia and Parkinson's Disease * Falls nearly daily x 6 months, daily x 2-3 weeks * Pt is set up to go to [facility], awaiting Medicaid paperwork--> [facility] has now declined placement * The pt's daughter doesn't feel he can safely remain at home any longer * CM/SW--> working on placement S/p QT Prolongation, Likely Resolved at this point * EKG on 10/30/2018 at 1741 shows sinus rhythm with QTc of 436--> EKG this AM shows sinus rhythm with QT of 468; corrected QT is 560 * EKG this AM 11/03/2018 at 1309 shows sinus rhythm with QTc of 444 (< or equal to 430 for men)-almost at normal range * He is no longer on any anti-psychotic medications except for Aricept and Sinemet; this could be his new baseline * Continue telemetry and monitor e-lytes (all normal this AM) Chronic: Alzheimer's Dementia Parkinson's AAA s/p graft HTN HLD GERD BPH Arthritis Back pain Gout Plan: He remains hemodynamically stable Routine AM Labs as needed CM/SW for placement Aspiration/Fall Precautions Continue Prevention DVT/GI prophylaxis Code Status: DNR/DNI; PCP: Dr. Alvarez The patient's Neurologist is Dr. Carlin Will update family when they get here sometime this afternoon. Paresh will come over to screen him for the [facility]
--- NOTE | 2018-11-04 14:04 | PCM.SN ---
- Free Text/Narrative Note: Met up with his daughter Farideh and his son-in-law Ch[place] at bedside and updated about the patient's clinical status. Farideh tells me he sundowns usually in the afternoon between 3-4 in the afternoon. In the night, he is usually up, wanders off, and would not shut down until cyanide pot hardener hours. Again, we made her aware that he had another episode of aggression this AM but were able to calm him down with low dose sedative. However we have no effective maintenance medication to control his disruptive behaviors or aggressions related to his worsening dementia. At this point, [facility] to the [facility].
[2018-11-04] MEDS: Acetaminophen 325 MG Tab PO PRN (19:35)
[2018-11-05] MEDS: Acetaminophen 325 MG Tab PO PRN ×3 (01:49→19:29)
[2018-11-05] MEDS: Pantoprazole 40 MG Tab.CR PO SCH (06:01)
[2018-11-05] MEDS: Carbidopa/Levodopa 25-100 MG Tab PO SCH ×4 (06:01→18:26)
[2018-11-05] MEDS: RASAGILINE MESYLATE 1 MG PO SCH (10:35)
[2018-11-05] MEDS: Hydrochlorothiazide 25 MG Tab PO SCH (10:37)
[2018-11-05] MEDS: Metoprolol Tartrate 25 MG Tab PO SCH ×2 (10:37→22:59)
[2018-11-05] MEDS: Lisinopril 5 MG Tab PO SCH (10:38)
[2018-11-05] MEDS: Tamsulosin 0.4 MG Cap.ER PO SCH (10:38)
[2018-11-05] MEDS: Benztropine 1 MG Tab PO SCH ×2 (10:39→23:23)
[2018-11-05] MEDS: Cyclobenzaprine 10 MG Tab PO SCH ×3 (10:39→23:23)
[2018-11-05] MEDS: Allopurinol 100 MG Tab PO SCH ×2 (10:40→22:59)
[2018-11-05] MEDS: Rosuvastatin 10 MG Tab PO SCH (10:43)
[2018-11-05] MEDS: Thiamine 100 MG Tab PO SCH (10:45)
[2018-11-05] MEDS: Multivitamins with Minerals/Folic Acid/Lutein/Zeaxanth Tab PO SCH (10:45)
[2018-11-05] MEDS: Cholecalciferol (Vitamin D3) 1,000 Unit Tab PO SCH (10:45)
[2018-11-05] MEDS: Donepezil 10 MG Tab PO SCH (20:00)
--- NOTE | 2018-11-05 21:28 | PCM.PN ---
- General Info Date of Service: 11/05/18 Admission Dx/Problem (Free Text): Admission Diagnosis/Problem Admission Diagnosis/Problem Failure to thrive in adult Subjective Update: In to see Олег. He is laying in bed and is very agitated as he tends to get around this time and is kicking his gown and the covers off. Clinically he is stable. Awaiting placement. [facility] has refused him, but is willing to re-look at his paperwork on Thursday to reconsider. No concerns from nursing other than his agitation. Functional Status: Reports: Pain Controlled, Tolerating Diet, Ambulating, Urinating - Review of Systems Neurological: Reports: Confusion Psychiatric: Reports: Confusion, Agitation Systems Review Comment:: Unable to attain as he is confused and agitated at this time - Patient Data Vitals - Most Recent: Last Vital Signs Temp 98.4 F 11/05/18 15:23 Pulse 81 11/05/18 15:23 Resp 16 11/05/18 15:23 BP 130/93 H 11/05/18 16:01 Pulse Ox 97 11/05/18 15:23 Weight - Most Recent: 164 lb 9.6 oz I&O - Last 24 Hours: Intake & Output 11/05/18 11/05/18 11/05/18 06:59 14:59 22:59 Intake Total 100 0 600 Output Total 200 Balance 100 0 400 Med Orders - Current: Current Medications Acetaminophen (Tylenol) 650 mg PO Q4H PRN PRN Reason: Pain (Mild 1-3)/fever Last Admin: 11/05/18 19:29 Dose: 650 mg Allopurinol (Zyloprim) 100 mg PO BID [facility] Last Admin: 11/05/18 10:40 Dose: 100 mg Benztropine Mesylate (Cogentin) 1 mg PO BID [facility] Last Admin: 11/05/18 10:39 Dose: 1 mg Bisacodyl (Dulcolax) 5 mg PO DAILY PRN PRN Reason: Constipation Calcitriol (Rocaltrol) 0.25 mcg PO SuTh@0900 [facility] Last Admin: 11/04/18 08:22 Dose: 0.25 mcg Carbidopa/Levodopa (Sinemet 25-100 Mg) 1.5 tab PO 0700,1100,1500 [facility] Last Admin: 11/05/18 14:22 Dose: 1.5 tab Carbidopa/Levodopa (Sinemet 25-100 Mg) 1.5 tab PO 1900,2300 [facility] Last Admin: 11/05/18 18:26 Dose: 1.5 tab Cholecalciferol (Vitamin D3) 2,000 units PO DAILY [facility] Last Admin: 11/05/18 10:45 Dose: 2,000 units Cyclobenzaprine HCl (Flexeril) 5 mg PO TID [facility] Last Admin: 11/05/18 14:23 Dose: 5 mg Docusate Sodium (Colace) 100 mg PO BID PRN PRN Reason: Constipation Last Admin: 10/31/18 08:28 Dose: 100 mg Donepezil HCl (Aricept) 5 mg PO BEDTIME [facility] Last Admin: 11/04/18 20:01 Dose: 5 mg Hydrochlorothiazide (Hydrochlorothiazide) 25 mg PO DAILY [facility] Last Admin: 11/05/18 10:37 Dose: 25 mg Promethazine HCl 6.25 mg/ (Sodium Chloride) 50.25 mls @ 100 mls/hr IV Q6H PRN PRN Reason: Nausea/Vomiting Lisinopril (Prinivil) 5 mg PO DAILY [facility] Last Admin: 11/05/18 10:38 Dose: 5 mg Magnesium Hydroxide (Milk Of Magnesia) 30 ml PO Q12H PRN PRN Reason: Constipation Metoprolol Tartrate (Lopressor) 25 mg PO BID [facility] Last Admin: 11/05/18 10:37 Dose: 25 mg Pantoprazole Sodium (Protonix) 40 mg PO ACBREAKFAST [facility] Last Admin: 11/05/18 06:01 Dose: 40 mg Rasagiline Mesylate [Azilect] 1 Mg*Pt Own Med* 0 each PO DAILY [facility] Last Admin: 11/05/18 10:35 Dose: 1 each Polyethylene Glycol (Miralax) 17 gm PO DAILY PRN PRN Reason: Constipation Promethazine HCl (Phenergan) 25 mg PO Q6H PRN PRN Reason: Nausea/Vomiting Rosuvastatin Calcium (Crestor) 40 mg PO DAILY [facility] Last Admin: 11/05/18 10:43 Dose: 40 mg Senna/Docusate Sodium (Senna Plus) 1 tab PO BID PRN PRN Reason: Constipation Tamsulosin HCl (Flomax) 0.4 mg PO DAILY [facility] Last Admin: 11/05/18 10:38 Dose: 0.4 mg Thiamine HCl (Vitamin B-1) 100 mg PO DAILY [facility] Last Admin: 11/05/18 10:45 Dose: 100 mg Vit A/Vit C/Vit E/Selen/Cu/Zn/Lutei (Icaps Mv) 1 tab PO DAILY [facility] Last Admin: 11/05/18 10:45 Dose: 1 tab Discontinued Medications Benztropine Mesylate (Cogentin) 1 mg PO ONETIME ONE Stop: 11/02/18 17:49 Last Admin: 11/02/18 18:49 Dose: 1 mg Calcitriol (Rocaltrol) 0.25 mcg PO ASDIRECTED [facility] Carbidopa/Levodopa (Sinemet 25-100 Mg) 1.5 tab PO ONETIME ONE Stop: 10/28/18 20:31 Last Admin: 10/28/18 21:38 Dose: 1.5 tab Cyclobenzaprine HCl (Flexeril) 10 mg PO TID PRN PRN Reason: Muscle Spasm Last Admin: 10/30/18 16:30 Dose: 10 mg Donepezil HCl (Aricept) 5 mg PO ONETIME ONE Stop: 10/28/18 20:31 Last Admin: 10/28/18 21:39 Dose: 5 mg Haloperidol Lactate (Haldol) 2.5 mg IM Q8H PRN PRN Reason: Disruptive behavior Last Admin: 10/31/18 10:33 Dose: 2.5 mg Haloperidol Lactate (Haldol) Confirm Administered Dose 5 mg .ROUTE .STK-MED ONE Stop: 10/30/18 16:54 Last Admin: 10/30/18 17:30 Dose: Not Given Haloperidol Lactate (Haldol) 2.5 mg IM ONETIME ONE Stop: 10/30/18 17:04 Last Admin: 10/30/18 17:06 Dose: 2.5 mg Haloperidol Lactate (Haldol) 2.5 mg IVPUSH ONETIME ONE Stop: 10/30/18 17:13 Last Admin: 10/30/18 17:30 Dose: Not Given Haloperidol Lactate (Haldol) 2.5 mg IM ONETIME ONE Stop: 10/30/18 17:13 Last Admin: 10/30/18 17:14 Dose: 2.5 mg Haloperidol Lactate (Haldol) 5 mg IM Q6H PRN PRN Reason: Disruptive behavior Haloperidol Lactate (Haldol) 2.5 mg IM ONETIME ONE Stop: 10/31/18 10:49 Last Admin: 10/31/18 11:03 Dose: Not Given Haloperidol Lactate (Haldol) 2.5 mg IM Q6H PRN PRN Reason: Disruptive behavior Last Admin: 11/01/18 04:31 Dose: 2.5 mg Sodium Chloride (Normal Saline) 500 mls @ 999 mls/hr IV .BOLUS ONE Stop: 11/02/18 09:17 Last Admin: 11/02/18 09:06 Dose: 999 mls/hr Lorazepam (Ativan) 0.25 mg IVPUSH ONETIME ONE Stop: 11/04/18 08:26 Last Admin: 11/04/18 08:30 Dose: 0.5 mg Magnesium Sulfate (Pharmacy To Dose - Magnesium Replacement) 0 dose .XX ASDIRECTED PRN PRN Reason: RX TO WATCH MAG Potassium Chloride (Pharmacy To Dose - Potassium Replacement) 0 dose .XX ASDIRECTED PRN PRN Reason: RX TO WATCH K Potassium Chloride (Klor-Con M20) 40 meq PO BID [facility] Stop: 10/28/18 21:01 Last Admin: 10/28/18 21:45 Dose: Not Given Potassium Chloride (Klor-Con M20) 40 meq PO ONETIME ONE Stop: 10/29/18 10:46 Last Admin: 10/29/18 10:48 Dose: 40 meq Quetiapine Fumarate (Seroquel) 25 mg PO Q6H PRN PRN Reason: Disruptive Behavior Last Admin: 10/31/18 02:45 Dose: 25 mg Quetiapine Fumarate (Seroquel) 12.5 mg PO DAILY@1400 [facility] Last Admin: 11/02/18 13:28 Dose: 12.5 mg Tramadol HCl (Ultram) 50 mg PO Q6H [facility] Last Admin: 10/31/18 02:11 Dose: 50 mg Tramadol HCl (Ultram) 50 mg PO ONETIME ONE Stop: 10/30/18 20:31 Last Admin: 10/30/18 20:26 Dose: 50 mg Tramadol HCl (Ultram) 50 mg PO Q6H PRN PRN Reason: Pain - Exam Quality Assessment: DVT Prophylaxis General: Alert. No: Oriented, Cooperative HEENT: Pupils Equal, Pupils Reactive, EOMI, Mucous Membr. Moist/Tiro Neck: Supple Lungs: Clear to Auscultation, Normal Respiratory Effort Cardiovascular: Regular Rate, Regular Rhythm GI/Abdominal Exam: Normal Bowel Sounds, Soft, Non-Tender, No Organomegaly, No Distention, No Abnormal Bruit, No Mass, Pelvis Stable (Male) Exam: Deferred Back Exam: Normal Inspection Extremities: Normal Inspection, Normal Range of Motion, Non-Tender, No Pedal Edema, Normal Capillary Refill Peripheral Pulses: 2+: Posterior Tibial (L), Posterior Tibial (R), Dorsalis Pedis (L), Dorsalis Pedis (R) Skin: Warm, Dry, Intact Neurological: No New Focal Deficit Psy/Mental Status: Alert, Agitated, Other (confused) - Problem List & Annotations (1) Acute on chronic intracranial subdural hematoma SNOMED Code(s): 46076536 Code(s): I62.01 - NONTRAUMATIC ACUTE SUBDURAL HEMORRHAGE; I62.03 - NONTRAUMATIC CHRONIC SUBDURAL HEMORRHAGE Status: Acute Priority: High Current Visit: Yes (2) Dementia SNOMED Code(s): 96189426 Code(s): F03.90 - UNSPECIFIED DEMENTIA WITHOUT BEHAVIORAL DISTURBANCE Status: Chronic Priority: Medium Current Visit: Yes Qualifiers: Dementia type: Alzheimer's disease Alzheimer's disease onset: unspecified onset Dementia behavioral disturbance: without behavioral disturbance Qualified Code(s): G30.9 - Alzheimer's disease, unspecified; F02.80 - Dementia in other diseases classified elsewhere without behavioral disturbance (3) Failure to thrive in adult SNOMED Code(s): 068077498 Code(s): R62.7 - ADULT FAILURE TO THRIVE Status: Acute Priority: High Current Visit: Yes (4) Fall at home SNOMED Code(s): 94875863 Code(s): W19.XXXA - UNSPECIFIED FALL, INITIAL ENCOUNTER; Y92.009 - UNSP PLACE IN UNSP NON-INSTITUT (PRIVATE) RESIDENCE PLACE Status: Acute Priority: High Current Visit: Yes Qualifiers: Encounter type: initial encounter Qualified Code(s): W19.XXXA - Unspecified fall, initial encounter; Y92.009 - Unspecified place in unspecified non-institutional (private) residence as the place of occurrence of the external cause (5) Parkinson disease SNOMED Code(s): 82579493 Code(s): G20 - PARKINSON'S DISEASE Status: Chronic Priority: Medium Current Visit: Yes - Problem List Review Problem List Initiated/Reviewed/Updated: Yes - Plan Plan:: Assessment/Plan: Acute: Agitation with Disruptive/Aggressive Behaviors, Uncontrolled * At this point, I firmly believed this is related to his Severe Alzheimer's Dementia and Parkinson's Disease/Parkinsonian Features * These behaviors were exhibited prior to the administration of the anti- psychotics medications; in fact it was our last resort * On Aricept 5 mg po QHS and Sinemet 1.5 tab 0700 QID (0700, 1100, 1900 and 2300 ) for home maintenance medications * Failed conservative management; failed trial of Seroquel * Good response to low dose Haldol but Dr. Odell is not in favor of using it and so do I * Currently on 1mg Cogentin BID and Sundowning Prevention/Behavior Modification Techniques; * He had 2 episode last night and this morning; he responded to low dose Ativan x1 in AM (avoided anti-psychotic medications) * Dr. Odell continues to follow him * Continue Sundowning Prevention * SW/CM to assess for possible change in placement status Subdural Hematoma, Stable and Improved * Acute on Chronic (chronic portion appears to have occurred after previous CT on 08/07/2018) * Risk Factor: Parkinson's, Falls nearly daily x 6 months, daily x 2-3 weeks * CT head in ED: * 1. Acute subdural hematoma superimposed upon chronic left-sided subdural hematoma. This is an interval change from prior head CT study. This finding causes mild midline shift of approximately 7 mm. Thickness of the subdural collection is approximately 1 cm. * 2. Senescent change as noted above which is similar to prior head CT study. * 3. Increasing mucosal thickening within the paranasal sinuses most likely due to worsening chronic sinusitis. * Case discussed with Dr. Matamoros, Neurosurgeon at [facility] in ED: * Pt not good candidate for neurosurgery--> Pt would likely have difficulty w/ anesthesia and wouldn't be able to participate meaningfully w/ his recovery * Majority of the blood seems to be old * Most important thing is to keep pt from falling and hitting his head * Repeat CT scan this AM shows decreased acute brain bleed * Fall precautions; Up with assistance Confusion, Improved * 2/2 Cogentin plus Flexeril--> Anticholinergic and Sedation/Drowsiness * Aspiration and Fall Precaution * He did not get his Cogentin last not; he was up all night and woke up agitated /disruptive this AM Resolved: S/p Watery Diarrhea * C. Diff negative on screening * He is not getting antibiotics or diabetics oral agents * Suspect 2/2 stress * Monitor S/p Renal Insufficiency * 2/2 GI Loss form Diarrhea and Inadequate oral intake * IV Bolus with 1L NS; will avoid maintenance as he pulls IV access out * May repeat labs this afternoon * Advised staff to encourage patient to drink fluids S/p Failure to Thrive, Not true in my opinion * Patient looks healthy and in good shape * What perceives as "failure to thrive" is due to his underlying disease(s) taking its natural course as noted below * Risk Factors: Alzheimer's Dementia and Parkinson's Disease * Falls nearly daily x 6 months, daily x 2-3 weeks * Pt is set up to go to [facility], awaiting Medicaid paperwork--> [facility] has now declined placement * The pt's daughter doesn't feel he can safely remain at home any longer * CM/SW--> working on placement S/p QT Prolongation, Likely Resolved at this point * EKG on 10/30/2018 at 1741 shows sinus rhythm with QTc of 436--> EKG this AM shows sinus rhythm with QT of 468; corrected QT is 560 * EKG this AM 11/03/2018 at 1309 shows sinus rhythm with QTc of 444 (< or equal to 430 for men)-almost at normal range * He is no longer on any anti-psychotic medications except for Aricept and Sinemet; this could be his new baseline * Continue telemetry and monitor e-lytes (all normal this AM) Chronic: Alzheimer's Dementia Parkinson's AAA s/p graft HTN HLD GERD BPH Arthritis Back pain Gout Plan: He remains hemodynamically stable Routine AM Labs as needed CM/SW for placement Aspiration/Fall Precautions Continue Prevention DVT/GI prophylaxis Code Status: DNR/DNI; PCP: Dr. Alvarez The patient's Neurologist is Dr. Carlin Will update family when they get here sometime this afternoon. [facility] will come over to screen him for the [facility]
[2018-11-05] MEDS ORDERED: LORazepam 2 MG/ML SDV IVPUSH ONE (21:35)
[2018-11-05] MEDS ORDERED: LORazepam 0.5 MG Tab PO PRN (21:36)
[2018-11-05] MEDS ORDERED: Haloperidol Lactate 5 MG/ML SDV IM ONE (22:26)
[2018-11-06] MEDS: Carbidopa/Levodopa 25-100 MG Tab PO SCH ×5 (00:28→23:52)
[2018-11-06] MEDS: Pantoprazole 40 MG Tab.CR PO SCH (07:48)
[2018-11-06] MEDS: Allopurinol 100 MG Tab PO SCH ×2 (08:00→23:53)
[2018-11-06] MEDS: Cholecalciferol (Vitamin D3) 1,000 Unit Tab PO SCH (08:02)
[2018-11-06] MEDS: Multivitamins with Minerals/Folic Acid/Lutein/Zeaxanth Tab PO SCH (08:02)
[2018-11-06] MEDS: Benztropine 1 MG Tab PO SCH ×2 (08:02→23:53)
[2018-11-06] MEDS: Hydrochlorothiazide 25 MG Tab PO SCH (08:02)
[2018-11-06] MEDS: Thiamine 100 MG Tab PO SCH (08:02)
[2018-11-06] MEDS: Cyclobenzaprine 10 MG Tab PO SCH ×3 (08:02→23:53)
[2018-11-06] MEDS: Tamsulosin 0.4 MG Cap.ER PO SCH (08:03)
[2018-11-06] MEDS: Rosuvastatin 10 MG Tab PO SCH (08:03)
[2018-11-06] MEDS: Metoprolol Tartrate 25 MG Tab PO SCH ×2 (08:09→23:53)
[2018-11-06] MEDS: Lisinopril 5 MG Tab PO SCH (08:10)
[2018-11-06] MEDS: RASAGILINE MESYLATE 1 MG PO SCH (08:17)
[2018-11-06] MEDS ORDERED: hydrALAZINE 10 MG Tab PO PRN (09:57)
--- NOTE | 2018-11-06 10:50 | PCM.PN ---
- General Info Date of Service: 11/06/18 Subjective Update: Clinically ~stable, awaiting placement. [facility] has refused him, but is willing to re-look at his paperwork on Thursday to reconsider. No concerns from nursing other than his agitation, required Haldol/Ativan last night.. Functional Status: Reports: Pain Controlled - Review of Systems General: Reports: No Symptoms HEENT: Reports: No Symptoms Pulmonary: Reports: No Symptoms Cardiovascular: Reports: No Symptoms Gastrointestinal: Reports: No Symptoms Genitourinary: Reports: No Symptoms Musculoskeletal: Reports: No Symptoms Skin: Reports: No Symptoms Neurological: Reports: No Symptoms Psychiatric: Reports: No Symptoms - Patient Data Vitals - Most Recent: Last Vital Signs Temp 37.4 C 11/06/18 04:54 Pulse 90 11/06/18 08:09 Resp 20 11/06/18 04:54 BP 118/77 11/06/18 08:10 Pulse Ox 94 L 11/06/18 04:54 Weight - Most Recent: 73.663 kg I&O - Last 24 Hours: Intake & Output 11/05/18 11/06/18 11/06/18 22:59 06:59 14:59 Intake Total 600 400 Output Total 200 100 Balance 400 300 Med Orders - Current: Current Medications Acetaminophen (Tylenol) 650 mg PO Q4H PRN PRN Reason: Pain (Mild 1-3)/fever Last Admin: 11/05/18 19:29 Dose: 650 mg Allopurinol (Zyloprim) 100 mg PO BID [facility] Last Admin: 11/06/18 08:00 Dose: 100 mg Benztropine Mesylate (Cogentin) 1 mg PO BID [facility] Last Admin: 11/06/18 08:02 Dose: 1 mg Bisacodyl (Dulcolax) 5 mg PO DAILY PRN PRN Reason: Constipation Calcitriol (Rocaltrol) 0.25 mcg PO SuTh@0900 [facility] Last Admin: 11/04/18 08:22 Dose: 0.25 mcg Carbidopa/Levodopa (Sinemet 25-100 Mg) 1.5 tab PO 0700,1100,1500 [facility] Last Admin: 11/06/18 07:53 Dose: 1.5 tab Carbidopa/Levodopa (Sinemet 25-100 Mg) 1.5 tab PO 1900,2300 [facility] Last Admin: 11/06/18 00:28 Dose: Not Given Cholecalciferol (Vitamin D3) 2,000 units PO DAILY [facility] Last Admin: 11/06/18 08:02 Dose: 2,000 units Cyclobenzaprine HCl (Flexeril) 5 mg PO TID [facility] Last Admin: 11/06/18 08:02 Dose: 5 mg Docusate Sodium (Colace) 100 mg PO BID PRN PRN Reason: Constipation Last Admin: 10/31/18 08:28 Dose: 100 mg Donepezil HCl (Aricept) 5 mg PO BEDTIME [facility] Last Admin: 11/05/18 20:00 Dose: 5 mg Haloperidol Lactate (Haldol) 3 mg IVPUSH Q12H [facility] Hydralazine HCl (Apresoline) 10 mg PO Q6H PRN PRN Reason: Hypertension Hydrochlorothiazide (Hydrochlorothiazide) 25 mg PO DAILY [facility] Last Admin: 11/06/18 08:02 Dose: 25 mg Promethazine HCl 6.25 mg/ (Sodium Chloride) 50.25 mls @ 100 mls/hr IV Q6H PRN PRN Reason: Nausea/Vomiting Lorazepam (Ativan) 2 mg IVPUSH Q8H PRN PRN Reason: Anxiety Magnesium Hydroxide (Milk Of Magnesia) 30 ml PO Q12H PRN PRN Reason: Constipation Metoprolol Tartrate (Lopressor) 25 mg PO BID [facility] Last Admin: 11/06/18 08:09 Dose: 25 mg Pantoprazole Sodium (Protonix) 40 mg PO ACBREAKFAST [facility] Last Admin: 11/06/18 07:48 Dose: 40 mg Rasagiline Mesylate [Azilect] 1 Mg*Pt Own Med* 0 each PO DAILY [facility] Last Admin: 11/06/18 08:17 Dose: 1 each Polyethylene Glycol (Miralax) 17 gm PO DAILY PRN PRN Reason: Constipation Promethazine HCl (Phenergan) 25 mg PO Q6H PRN PRN Reason: Nausea/Vomiting Rosuvastatin Calcium (Crestor) 40 mg PO DAILY [facility] Last Admin: 11/06/18 08:03 Dose: 40 mg Senna/Docusate Sodium (Senna Plus) 1 tab PO BID PRN PRN Reason: Constipation Tamsulosin HCl (Flomax) 0.4 mg PO DAILY [facility] Last Admin: 11/06/18 08:03 Dose: 0.4 mg Thiamine HCl (Vitamin B-1) 100 mg PO DAILY [facility] Last Admin: 11/06/18 08:02 Dose: 100 mg Vit A/Vit C/Vit E/Selen/Cu/Zn/Lutei (Icaps Mv) 1 tab PO DAILY [facility] Last Admin: 11/06/18 08:02 Dose: 1 tab Discontinued Medications Benztropine Mesylate (Cogentin) 1 mg PO ONETIME ONE Stop: 11/02/18 17:49 Last Admin: 11/02/18 18:49 Dose: 1 mg Calcitriol (Rocaltrol) 0.25 mcg PO ASDIRECTED [facility] Carbidopa/Levodopa (Sinemet 25-100 Mg) 1.5 tab PO ONETIME ONE Stop: 10/28/18 20:31 Last Admin: 10/28/18 21:38 Dose: 1.5 tab Cyclobenzaprine HCl (Flexeril) 10 mg PO TID PRN PRN Reason: Muscle Spasm Last Admin: 10/30/18 16:30 Dose: 10 mg Donepezil HCl (Aricept) 5 mg PO ONETIME ONE Stop: 10/28/18 20:31 Last Admin: 10/28/18 21:39 Dose: 5 mg Haloperidol Lactate (Haldol) 2.5 mg IM Q8H PRN PRN Reason: Disruptive behavior Last Admin: 10/31/18 10:33 Dose: 2.5 mg Haloperidol Lactate (Haldol) Confirm Administered Dose 5 mg .ROUTE .STK-MED ONE Stop: 10/30/18 16:54 Last Admin: 10/30/18 17:30 Dose: Not Given Haloperidol Lactate (Haldol) 2.5 mg IM ONETIME ONE Stop: 10/30/18 17:04 Last Admin: 10/30/18 17:06 Dose: 2.5 mg Haloperidol Lactate (Haldol) 2.5 mg IVPUSH ONETIME ONE Stop: 10/30/18 17:13 Last Admin: 10/30/18 17:30 Dose: Not Given Haloperidol Lactate (Haldol) 2.5 mg IM ONETIME ONE Stop: 10/30/18 17:13 Last Admin: 10/30/18 17:14 Dose: 2.5 mg Haloperidol Lactate (Haldol) 5 mg IM Q6H PRN PRN Reason: Disruptive behavior Haloperidol Lactate (Haldol) 2.5 mg IM ONETIME ONE Stop: 10/31/18 10:49 Last Admin: 10/31/18 11:03 Dose: Not Given Haloperidol Lactate (Haldol) 2.5 mg IM Q6H PRN PRN Reason: Disruptive behavior Last Admin: 11/01/18 04:31 Dose: 2.5 mg Haloperidol Lactate (Haldol) 2 mg IM ONETIME ONE Stop: 11/05/18 22:27 Last Admin: 11/05/18 22:33 Dose: 2 mg Sodium Chloride (Normal Saline) 500 mls @ 999 mls/hr IV .BOLUS ONE Stop: 11/02/18 09:17 Last Admin: 11/02/18 09:06 Dose: 999 mls/hr Lisinopril (Prinivil) 5 mg PO DAILY [facility] Last Admin: 11/06/18 08:10 Dose: 5 mg Lorazepam (Ativan) 0.25 mg IVPUSH ONETIME ONE Stop: 11/04/18 08:26 Last Admin: 11/04/18 08:30 Dose: 0.5 mg Lorazepam (Ativan) 0.25 mg IVPUSH ONETIME ONE Stop: 11/05/18 21:36 Last Admin: 11/05/18 21:46 Dose: 0.25 mg Lorazepam (Ativan) 0.5 mg PO Q4H PRN PRN Reason: Agitation Magnesium Sulfate (Pharmacy To Dose - Magnesium Replacement) 0 dose .XX ASDIRECTED PRN PRN Reason: RX TO WATCH MAG Potassium Chloride (Pharmacy To Dose - Potassium Replacement) 0 dose .XX ASDIRECTED PRN PRN Reason: RX TO WATCH K Potassium Chloride (Klor-Con M20) 40 meq PO BID [facility] Stop: 10/28/18 21:01 Last Admin: 10/28/18 21:45 Dose: Not Given Potassium Chloride (Klor-Con M20) 40 meq PO ONETIME ONE Stop: 10/29/18 10:46 Last Admin: 10/29/18 10:48 Dose: 40 meq Quetiapine Fumarate (Seroquel) 25 mg PO Q6H PRN PRN Reason: Disruptive Behavior Last Admin: 10/31/18 02:45 Dose: 25 mg Quetiapine Fumarate (Seroquel) 12.5 mg PO DAILY@1400 [facility] Last Admin: 11/02/18 13:28 Dose: 12.5 mg Tramadol HCl (Ultram) 50 mg PO Q6H [facility] Last Admin: 10/31/18 02:11 Dose: 50 mg Tramadol HCl (Ultram) 50 mg PO ONETIME ONE Stop: 10/30/18 20:31 Last Admin: 10/30/18 20:26 Dose: 50 mg Tramadol HCl (Ultram) 50 mg PO Q6H PRN PRN Reason: Pain - Exam Quality Assessment: Supplemental Oxygen, DVT Prophylaxis General: Sedated HEENT: Pupils Equal, Pupils Reactive Neck: Trachea Midline, No JVD Lungs: Normal Respiratory Effort Cardiovascular: Regular Rate GI/Abdominal Exam: Normal Bowel Sounds, Soft, Non-Tender, No Organomegaly, No Distention (Male) Exam: Deferred Back Exam: Normal Inspection Extremities: Normal Inspection, Non-Tender, Normal Capillary Refill Skin: Warm Neurological: No New Focal Deficit Psy/Mental Status: Other (sedated) - Problem List Review Problem List Initiated/Reviewed/Updated: Yes - My Orders Last 24 Hours: My Active Orders 11/06/18 09:57 hydrALAZINE [Apresoline] 10 mg PO Q6H PRN 11/06/18 10:49 LORazepam [Ativan] 2 mg IVPUSH Q8H PRN 11/06/18 19:00 Haloperidol Lactate [Haldol] 3 mg IVPUSH Q12H - Plan Plan:: Assessment/Plan: Acute: Agitation with Disruptive/Aggressive Behaviors, Uncontrolled * At this point, I firmly believed this is related to his Severe Alzheimer's Dementia and Parkinson's Disease/Parkinsonian Features * These behaviors were exhibited prior to the administration of the anti- psychotics medications; in fact it was our last resort * On Aricept 5 mg po QHS and Sinemet 1.5 tab 0700 QID (0700, 1100, 1900 and 2300 ) for home maintenance medications * Failed conservative management; failed trial of Seroquel * Good response to low dose Haldol but Dr. Odell is not in favor of using it and so do I * Currently on 1mg Cogentin BID and Sundowning Prevention/Behavior Modification Techniques; * He had 2 episode last night and this morning; he responded to low dose Ativan x1 in AM (avoided anti-psychotic medications) * Dr. Odell continues to follow him * Continue Sundowning Prevention * SW/CM to assess for possible change in placement status Subdural Hematoma, Stable and Improved * Acute on Chronic (chronic portion appears to have occurred after previous CT on 08/07/2018) * Risk Factor: Parkinson's, Falls nearly daily x 6 months, daily x 2-3 weeks * CT head in ED: * 1. Acute subdural hematoma superimposed upon chronic left-sided subdural hematoma. This is an interval change from prior head CT study. This finding causes mild midline shift of approximately 7 mm. Thickness of the subdural collection is approximately 1 cm. * 2. Senescent change as noted above which is similar to prior head CT study. * 3. Increasing mucosal thickening within the paranasal sinuses most likely due to worsening chronic sinusitis. * Case discussed with Dr. Matamoros, Neurosurgeon at [facility] in ED: * Pt not good candidate for neurosurgery--> Pt would likely have difficulty w/ anesthesia and wouldn't be able to participate meaningfully w/ his recovery * Majority of the blood seems to be old * Most important thing is to keep pt from falling and hitting his head * Repeat CT scan this AM shows decreased acute brain bleed * Fall precautions; Up with assistance Confusion, Improved * 2/2 Cogentin plus Flexeril--> Anticholinergic and Sedation/Drowsiness * Aspiration and Fall Precaution * He did not get his Cogentin last not; he was up all night and woke up agitated /disruptive this AM Resolved: S/p Watery Diarrhea * C. Diff negative on screening * He is not getting antibiotics or diabetics oral agents * Suspect 2/2 stress * Monitor S/p Renal Insufficiency * 2/2 GI Loss form Diarrhea and Inadequate oral intake * IV Bolus with 1L NS; will avoid maintenance as he pulls IV access out * May repeat labs this afternoon * Advised staff to encourage patient to drink fluids S/p Failure to Thrive, Not true in my opinion * Patient looks healthy and in good shape * What perceives as "failure to thrive" is due to his underlying disease(s) taking its natural course as noted below * Risk Factors: Alzheimer's Dementia and Parkinson's Disease * Falls nearly daily x 6 months, daily x 2-3 weeks * Pt is set up to go to [facility], awaiting Medicaid paperwork--> [facility] has now declined placement * The pt's daughter doesn't feel he can safely remain at home any longer * CM/SW--> working on placement S/p QT Prolongation, Likely Resolved at this point * EKG on 10/30/2018 at 1741 shows sinus rhythm with QTc of 436--> EKG this AM shows sinus rhythm with QT of 468; corrected QT is 560 * EKG this AM 11/03/2018 at 1309 shows sinus rhythm with QTc of 444 (< or equal to 430 for men)-almost at normal range * He is no longer on any anti-psychotic medications except for Aricept and Sinemet; this could be his new baseline * Continue telemetry and monitor e-lytes (all normal this AM) Chronic: Alzheimer's Dementia Parkinson's AAA s/p graft HTN HLD GERD BPH Arthritis Back pain Gout Plan: Will schedule Haldol with prn Ativan, dementia with psychotic features Hemodynamically stable Routine AM Labs as needed CM/SW for placement Aspiration/Fall Precautions Continue Sund Prevention DVT/GI prophylaxis Code Status: DNR/DNI; PCP: Dr. Alvarez The patient's Neurologist is Dr. Carlin
[2018-11-06] MEDS: LORazepam 2 MG/ML SDV IVPUSH PRN ×2 (16:44→17:37)
[2018-11-06] MEDS: Haloperidol Lactate 5 MG/ML SDV IVPUSH SCH (23:52)
[2018-11-06] MEDS: Donepezil 10 MG Tab PO SCH (23:52)
[2018-11-07] MEDS: LORazepam 2 MG/ML SDV IVPUSH PRN (04:07)
[2018-11-07] MEDS: Carbidopa/Levodopa 25-100 MG Tab PO SCH ×5 (09:50→22:07)
[2018-11-07] MEDS: Benztropine 1 MG Tab PO SCH ×2 (09:52→20:08)
[2018-11-07] MEDS: Hydrochlorothiazide 25 MG Tab PO SCH (09:52)
[2018-11-07] MEDS: Cyclobenzaprine 10 MG Tab PO SCH ×3 (09:52→20:09)
[2018-11-07] MEDS: Metoprolol Tartrate 25 MG Tab PO SCH ×2 (10:03→20:17)
[2018-11-07] MEDS: Haloperidol Lactate 5 MG/ML SDV IVPUSH SCH ×3 (10:09→17:12)
[2018-11-07] MEDS: RASAGILINE MESYLATE 1 MG PO SCH (10:10)
[2018-11-07] MEDS: Pantoprazole 40 MG Tab.CR PO SCH (11:05)
[2018-11-07] MEDS: Calcitriol 0.25 MCG Cap PO SCH (12:51)
[2018-11-07] MEDS: Tamsulosin 0.4 MG Cap.ER PO SCH (12:51)
[2018-11-07] MEDS: Allopurinol 100 MG Tab PO SCH ×2 (12:52→20:10)
--- NOTE | 2018-11-07 12:54 | PCM.PN ---
- General Info Date of Service: 11/07/18 Functional Status: Reports: Urinating - Review of Systems General: Reports: No Symptoms HEENT: Reports: No Symptoms Pulmonary: Reports: No Symptoms Cardiovascular: Reports: No Symptoms Gastrointestinal: Reports: No Symptoms Genitourinary: Reports: No Symptoms Musculoskeletal: Reports: No Symptoms Skin: Reports: No Symptoms Neurological: Reports: Confusion Psychiatric: Reports: Confusion - Patient Data Vitals - Most Recent: Last Vital Signs Temp 37.2 C 11/07/18 08:11 Pulse 100 11/07/18 10:04 Resp 20 11/07/18 08:11 BP 103/59 L 11/07/18 10:03 Pulse Ox 92 L 11/07/18 08:11 Weight - Most Recent: 72.484 kg I&O - Last 24 Hours: Intake & Output 11/06/18 11/07/18 11/07/18 22:59 06:59 14:59 Intake Total 400 0 Output Total 200 Balance 200 0 Med Orders - Current: Current Medications Acetaminophen (Tylenol) 650 mg PO Q4H PRN PRN Reason: Pain (Mild 1-3)/fever Last Admin: 11/05/18 19:29 Dose: 650 mg Allopurinol (Zyloprim) 100 mg PO BID [facility] Last Admin: 11/06/18 23:53 Dose: Not Given Benztropine Mesylate (Cogentin) 1 mg PO BID [facility] Last Admin: 11/07/18 09:52 Dose: 1 mg Bisacodyl (Dulcolax) 5 mg PO DAILY PRN PRN Reason: Constipation Calcitriol (Rocaltrol) 0.25 mcg PO SuTh@0900 [facility] Last Admin: 11/04/18 08:22 Dose: 0.25 mcg Carbidopa/Levodopa (Sinemet 25-100 Mg) 1.5 tab PO 0700,1100,1500 [facility] Last Admin: 11/07/18 10:10 Dose: 1.5 tab Carbidopa/Levodopa (Sinemet 25-100 Mg) 1.5 tab PO 1900,2300 [facility] Last Admin: 11/06/18 23:52 Dose: Not Given Cholecalciferol (Vitamin D3) 2,000 units PO DAILY [facility] Last Admin: 11/06/18 08:02 Dose: 2,000 units Cyclobenzaprine HCl (Flexeril) 5 mg PO TID [facility] Last Admin: 11/07/18 09:52 Dose: 5 mg Docusate Sodium (Colace) 100 mg PO BID PRN PRN Reason: Constipation Last Admin: 10/31/18 08:28 Dose: 100 mg Donepezil HCl (Aricept) 5 mg PO BEDTIME [facility] Last Admin: 11/06/18 23:52 Dose: Not Given Haloperidol Lactate (Haldol) 3 mg IVPUSH Q12H [facility] Last Admin: 11/07/18 10:09 Dose: Not Given Hydralazine HCl (Apresoline) 10 mg PO Q6H PRN PRN Reason: Hypertension Hydrochlorothiazide (Hydrochlorothiazide) 25 mg PO DAILY [facility] Last Admin: 11/07/18 09:52 Dose: 25 mg Promethazine HCl 6.25 mg/ (Sodium Chloride) 50.25 mls @ 100 mls/hr IV Q6H PRN PRN Reason: Nausea/Vomiting Lorazepam (Ativan) 2 mg IVPUSH Q8H PRN PRN Reason: Anxiety Last Admin: 11/07/18 04:07 Dose: 2 mg Magnesium Hydroxide (Milk Of Magnesia) 30 ml PO Q12H PRN PRN Reason: Constipation Metoprolol Tartrate (Lopressor) 25 mg PO BID [facility] Last Admin: 11/07/18 10:03 Dose: 25 mg Pantoprazole Sodium (Protonix) 40 mg PO ACBREAKFAST [facility] Last Admin: 11/07/18 11:05 Dose: Not Given Rasagiline Mesylate [Azilect] 1 Mg*Pt Own Med* 0 each PO DAILY [facility] Last Admin: 11/07/18 10:10 Dose: 1 each Polyethylene Glycol (Miralax) 17 gm PO DAILY PRN PRN Reason: Constipation Promethazine HCl (Phenergan) 25 mg PO Q6H PRN PRN Reason: Nausea/Vomiting Rosuvastatin Calcium (Crestor) 40 mg PO DAILY [facility] Last Admin: 11/06/18 08:03 Dose: 40 mg Senna/Docusate Sodium (Senna Plus) 1 tab PO BID PRN PRN Reason: Constipation Tamsulosin HCl (Flomax) 0.4 mg PO DAILY [facility] Last Admin: 11/06/18 08:03 Dose: 0.4 mg Thiamine HCl (Vitamin B-1) 100 mg PO DAILY [facility] Last Admin: 11/06/18 08:02 Dose: 100 mg Vit A/Vit C/Vit E/Selen/Cu/Zn/Lutei (Icaps Mv) 1 tab PO DAILY [facility] Last Admin: 11/06/18 08:02 Dose: 1 tab Discontinued Medications Benztropine Mesylate (Cogentin) 1 mg PO ONETIME ONE Stop: 11/02/18 17:49 Last Admin: 11/02/18 18:49 Dose: 1 mg Calcitriol (Rocaltrol) 0.25 mcg PO ASDIRECTED [facility] Carbidopa/Levodopa (Sinemet 25-100 Mg) 1.5 tab PO ONETIME ONE Stop: 10/28/18 20:31 Last Admin: 10/28/18 21:38 Dose: 1.5 tab Cyclobenzaprine HCl (Flexeril) 10 mg PO TID PRN PRN Reason: Muscle Spasm Last Admin: 10/30/18 16:30 Dose: 10 mg Donepezil HCl (Aricept) 5 mg PO ONETIME ONE Stop: 10/28/18 20:31 Last Admin: 10/28/18 21:39 Dose: 5 mg Haloperidol Lactate (Haldol) 2.5 mg IM Q8H PRN PRN Reason: Disruptive behavior Last Admin: 10/31/18 10:33 Dose: 2.5 mg Haloperidol Lactate (Haldol) Confirm Administered Dose 5 mg .ROUTE .STK-MED ONE Stop: 10/30/18 16:54 Last Admin: 10/30/18 17:30 Dose: Not Given Haloperidol Lactate (Haldol) 2.5 mg IM ONETIME ONE Stop: 10/30/18 17:04 Last Admin: 10/30/18 17:06 Dose: 2.5 mg Haloperidol Lactate (Haldol) 2.5 mg IVPUSH ONETIME ONE Stop: 10/30/18 17:13 Last Admin: 10/30/18 17:30 Dose: Not Given Haloperidol Lactate (Haldol) 2.5 mg IM ONETIME ONE Stop: 10/30/18 17:13 Last Admin: 10/30/18 17:14 Dose: 2.5 mg Haloperidol Lactate (Haldol) 5 mg IM Q6H PRN PRN Reason: Disruptive behavior Haloperidol Lactate (Haldol) 2.5 mg IM ONETIME ONE Stop: 10/31/18 10:49 Last Admin: 10/31/18 11:03 Dose: Not Given Haloperidol Lactate (Haldol) 2.5 mg IM Q6H PRN PRN Reason: Disruptive behavior Last Admin: 11/01/18 04:31 Dose: 2.5 mg Haloperidol Lactate (Haldol) 2 mg IM ONETIME ONE Stop: 11/05/18 22:27 Last Admin: 11/05/18 22:33 Dose: 2 mg Sodium Chloride (Normal Saline) 500 mls @ 999 mls/hr IV .BOLUS ONE Stop: 11/02/18 09:17 Last Admin: 11/02/18 09:06 Dose: 999 mls/hr Lisinopril (Prinivil) 5 mg PO DAILY [facility] Last Admin: 11/06/18 08:10 Dose: 5 mg Lorazepam (Ativan) 0.25 mg IVPUSH ONETIME ONE Stop: 11/04/18 08:26 Last Admin: 11/04/18 08:30 Dose: 0.5 mg Lorazepam (Ativan) 0.25 mg IVPUSH ONETIME ONE Stop: 11/05/18 21:36 Last Admin: 11/05/18 21:46 Dose: 0.25 mg Lorazepam (Ativan) 0.5 mg PO Q4H PRN PRN Reason: Agitation Magnesium Sulfate (Pharmacy To Dose - Magnesium Replacement) 0 dose .XX ASDIRECTED PRN PRN Reason: RX TO WATCH MAG Potassium Chloride (Pharmacy To Dose - Potassium Replacement) 0 dose .XX ASDIRECTED PRN PRN Reason: RX TO WATCH K Potassium Chloride (Klor-Con M20) 40 meq PO BID [facility] Stop: 10/28/18 21:01 Last Admin: 10/28/18 21:45 Dose: Not Given Potassium Chloride (Klor-Con M20) 40 meq PO ONETIME ONE Stop: 10/29/18 10:46 Last Admin: 10/29/18 10:48 Dose: 40 meq Quetiapine Fumarate (Seroquel) 25 mg PO Q6H PRN PRN Reason: Disruptive Behavior Last Admin: 10/31/18 02:45 Dose: 25 mg Quetiapine Fumarate (Seroquel) 12.5 mg PO DAILY@1400 [facility] Last Admin: 11/02/18 13:28 Dose: 12.5 mg Tramadol HCl (Ultram) 50 mg PO Q6H [facility] Last Admin: 10/31/18 02:11 Dose: 50 mg Tramadol HCl (Ultram) 50 mg PO ONETIME ONE Stop: 10/30/18 20:31 Last Admin: 10/30/18 20:26 Dose: 50 mg Tramadol HCl (Ultram) 50 mg PO Q6H PRN PRN Reason: Pain - Exam Quality Assessment: DVT Prophylaxis General: No Acute Distress HEENT: Pupils Equal, Pupils Reactive Neck: Trachea Midline, No JVD Lungs: Clear to Auscultation, Normal Respiratory Effort Cardiovascular: Regular Rate, Regular Rhythm GI/Abdominal Exam: Normal Bowel Sounds, Soft, Non-Tender, No Organomegaly, No Distention (Male) Exam: Deferred Back Exam: Normal Inspection Extremities: Normal Inspection, Non-Tender, Normal Capillary Refill Skin: Warm Neurological: No New Focal Deficit Psy/Mental Status: Labile Mood - Problem List & Annotations (1) Dementia with psychosis SNOMED Code(s): 44971674, 07877146 Code(s): F03.91 - UNSPECIFIED DEMENTIA WITH BEHAVIORAL DISTURBANCE Status: Acute Current Visit: Yes (2) Acute on chronic intracranial subdural hematoma SNOMED Code(s): 09896158 Code(s): I62.01 - NONTRAUMATIC ACUTE SUBDURAL HEMORRHAGE; I62.03 - NONTRAUMATIC CHRONIC SUBDURAL HEMORRHAGE Status: Acute Priority: High Current Visit: Yes (3) Fall at home SNOMED Code(s): 98465086 Code(s): W19.XXXA - UNSPECIFIED FALL, INITIAL ENCOUNTER; Y92.009 - UNSP PLACE IN UNSP NON-INSTITUT (PRIVATE) RESIDENCE PLACE Status: Acute Priority: High Current Visit: Yes Qualifiers: Encounter type: initial encounter Qualified Code(s): W19.XXXA - Unspecified fall, initial encounter; Y92.009 - Unspecified place in unspecified non-institutional (private) residence as the place of occurrence of the external cause (4) Dementia SNOMED Code(s): 40845278 Code(s): F03.90 - UNSPECIFIED DEMENTIA WITHOUT BEHAVIORAL DISTURBANCE Status: Chronic Priority: Medium Current Visit: Yes Qualifiers: Dementia type: Alzheimer's disease Alzheimer's disease onset: unspecified onset Dementia behavioral disturbance: without behavioral disturbance Qualified Code(s): G30.9 - Alzheimer's disease, unspecified; F02.80 - Dementia in other diseases classified elsewhere without behavioral disturbance - Problem List Review Problem List Initiated/Reviewed/Updated: Yes - My Orders Last 24 Hours: My Active Orders 11/06/18 19:00 Haloperidol Lactate [Haldol] 3 mg IVPUSH Q12H 11/07/18 11:49 Communication Order [RC] DAILY 11/07/18 13:00 BMP [BASIC METABOLIC PANEL,BMP] [CHEM] Routine CBC WITH AUTO DIFF [HEME] Routine CRP [C-REACTIVE PROTEIN] [CHEM] Routine LACTIC ACID [CHEM] Routine MAGNESIUM [CHEM] Routine - Plan Plan:: Assessment/Plan: Acute: Agitation with Disruptive/Aggressive Behaviors, Uncontrolled * At this point, I firmly believed this is related to his Severe Alzheimer's Dementia and Parkinson's Disease/Parkinsonian Features * These behaviors were exhibited prior to the administration of the anti- psychotics medications; in fact it was our last resort * On Aricept 5 mg po QHS and Sinemet 1.5 tab 0700 QID (0700, 1100, 1900 and 2300 ) for home maintenance medications * Failed conservative management; failed trial of Seroquel * Good response to low dose Haldol but Dr. Odell is not in favor of using it and so do I * Currently on 1mg Cogentin BID and Sundowning Prevention/Behavior Modification Techniques; * He had 2 episode last night and this morning; he responded to low dose Ativan x1 in AM (avoided anti-psychotic medications) * Dr. Odell continues to follow him * Continue Sundowning Prevention * SW/CM to assess for possible change in placement status Subdural Hematoma, Stable and Improved * Acute on Chronic (chronic portion appears to have occurred after previous CT on 08/07/2018) * Risk Factor: Parkinson's, Falls nearly daily x 6 months, daily x 2-3 weeks * CT head in ED: * 1. Acute subdural hematoma superimposed upon chronic left-sided subdural hematoma. This is an interval change from prior head CT study. This finding causes mild midline shift of approximately 7 mm. Thickness of the subdural collection is approximately 1 cm. * 2. Senescent change as noted above which is similar to prior head CT study. * 3. Increasing mucosal thickening within the paranasal sinuses most likely due to worsening chronic sinusitis. * Case discussed with Dr. Matamoros, Neurosurgeon at [facility] in ED: * Pt not good candidate for neurosurgery--> Pt would likely have difficulty w/ anesthesia and wouldn't be able to participate meaningfully w/ his recovery * Majority of the blood seems to be old * Most important thing is to keep pt from falling and hitting his head * Repeat CT scan this AM shows decreased acute brain bleed * Fall precautions; Up with assistance Confusion, Improved * 2/2 Cogentin plus Flexeril--> Anticholinergic and Sedation/Drowsiness * Aspiration and Fall Precaution * He did not get his Cogentin last not; he was up all night and woke up agitated /disruptive this AM Resolved: S/p Watery Diarrhea * C. Diff negative on screening * He is not getting antibiotics or diabetics oral agents * Suspect 2/2 stress * Monitor S/p Renal Insufficiency * 2/2 GI Loss form Diarrhea and Inadequate oral intake * IV Bolus with 1L NS; will avoid maintenance as he pulls IV access out * May repeat labs this afternoon * Advised staff to encourage patient to drink fluids S/p Failure to Thrive, Not true in my opinion * Patient looks healthy and in good shape * What perceives as "failure to thrive" is due to his underlying disease(s) taking its natural course as noted below * Risk Factors: Alzheimer's Dementia and Parkinson's Disease * Falls nearly daily x 6 months, daily x 2-3 weeks * Pt is set up to go to [facility], awaiting Medicaid paperwork--> [facility] has now declined placement * The pt's daughter doesn't feel he can safely remain at home any longer * CM/SW--> working on placement S/p QT Prolongation, Likely Resolved at this point * EKG on 10/30/2018 at 1741 shows sinus rhythm with QTc of 436--> EKG this AM shows sinus rhythm with QT of 468; corrected QT is 560 * EKG this AM 11/03/2018 at 1309 shows sinus rhythm with QTc of 444 (< or equal to 430 for men)-almost at normal range * He is no longer on any anti-psychotic medications except for Aricept and Sinemet; this could be his new baseline * Continue telemetry and monitor e-lytes (all normal this AM) Chronic: Alzheimer's Dementia Parkinson's AAA s/p graft HTN HLD GERD BPH Arthritis Back pain Gout Plan: Will schedule Haldol with prn Ativan, dementia with psychotic features Hemodynamically stable Routine AM Labs as needed CM/SW for placement Aspiration/Fall Precautions Continue Prevention DVT/GI prophylaxis Code Status: DNR/DNI; PCP: Dr. Alvarez The patient's Neurologist is Dr. Carlin
[2018-11-07] MEDS: Thiamine 100 MG Tab PO SCH (15:26)
[2018-11-07] MEDS: Multivitamins with Minerals/Folic Acid/Lutein/Zeaxanth Tab PO SCH (15:29)
[2018-11-07] MEDS: Cholecalciferol (Vitamin D3) 1,000 Unit Tab PO SCH (15:29)
[2018-11-07] MEDS: Rosuvastatin 10 MG Tab PO SCH (15:29)
[2018-11-07] MEDS: Donepezil 10 MG Tab PO SCH (20:10)
[2018-11-08] MEDS: Pantoprazole 40 MG Tab.CR PO SCH (05:23)
[2018-11-08] MEDS: Haloperidol Lactate 5 MG/ML SDV IVPUSH SCH ×3 (05:31→21:00)
[2018-11-08] MEDS: Carbidopa/Levodopa 25-100 MG Tab PO SCH ×5 (06:00→23:40)
[2018-11-08] MEDS: Multivitamins with Minerals/Folic Acid/Lutein/Zeaxanth Tab PO SCH (09:17)
[2018-11-08] MEDS: Cyclobenzaprine 10 MG Tab PO SCH ×3 (09:17→20:18)
[2018-11-08] MEDS: Thiamine 100 MG Tab PO SCH (09:17)
[2018-11-08] MEDS: Benztropine 1 MG Tab PO SCH ×2 (09:17→20:10)
[2018-11-08] MEDS: Allopurinol 100 MG Tab PO SCH ×2 (09:17→20:21)
[2018-11-08] MEDS: Hydrochlorothiazide 25 MG Tab PO SCH (09:17)
[2018-11-08] MEDS: Tamsulosin 0.4 MG Cap.ER PO SCH (09:17)
[2018-11-08] MEDS: Cholecalciferol (Vitamin D3) 1,000 Unit Tab PO SCH (09:17)
[2018-11-08] MEDS: Rosuvastatin 10 MG Tab PO SCH (09:17)
[2018-11-08] MEDS: Metoprolol Tartrate 25 MG Tab PO SCH ×2 (09:18→20:22)
[2018-11-08] MEDS: RASAGILINE MESYLATE 1 MG PO SCH (09:21)
[2018-11-08] MEDS: Acetaminophen 325 MG Tab PO PRN (18:17)
--- NOTE | 2018-11-08 19:15 | PCM.PN ---
- General Info Date of Service: 11/08/18 Admission Dx/Problem (Free Text): Admission Diagnosis/Problem Admission Diagnosis/Problem Failure to thrive in adult Subjective Update: In to see Олег. He is laying in bed and is confused and agitated, which he tends to get around this time. He is currently on Haldol per Dr. Odell's recommendation, which seems to help with the agitation. Clinically he is stable. We are still awaiting placement. [facility] has refused him again. No concerns from nursing other than his agitation. After talking with the team, it seems that the best option for him at this time is to commit him, as he is medically stable and has not improved with medical intervention. Have started the paperwork, see notes for more detail. Functional Status: Reports: Pain Controlled, Urinating - Review of Systems Neurological: Reports: Confusion Psychiatric: Reports: Confusion, Agitation Systems Review Comment:: Unable to obtain d/t confusion - Patient Data Vitals - Most Recent: Last Vital Signs Temp 97.9 F 11/08/18 15:06 Pulse 74 11/08/18 15:06 Resp 14 11/08/18 15:06 BP 111/72 11/08/18 15:06 Pulse Ox 100 11/08/18 15:06 Weight - Most Recent: 155 lb 9.6 oz I&O - Last 24 Hours: Intake & Output 11/08/18 11/08/18 11/08/18 06:59 14:59 22:59 Intake Total 470 520 600 Balance 470 520 600 Med Orders - Current: Current Medications Acetaminophen (Tylenol) 650 mg PO Q4H PRN PRN Reason: Pain (Mild 1-3)/fever Last Admin: 11/08/18 18:17 Dose: 650 mg Allopurinol (Zyloprim) 100 mg PO BID [facility] Last Admin: 11/08/18 09:17 Dose: 100 mg Benztropine Mesylate (Cogentin) 1 mg PO BID [facility] Last Admin: 11/08/18 09:17 Dose: 1 mg Bisacodyl (Dulcolax) 5 mg PO DAILY PRN PRN Reason: Constipation Calcitriol (Rocaltrol) 0.25 mcg PO SuTh@0900 [facility] Last Admin: 11/07/18 12:51 Dose: 0.25 mcg Carbidopa/Levodopa (Sinemet 25-100 Mg) 1.5 tab PO 0700,1100,1500 [facility] Last Admin: 11/08/18 14:29 Dose: 1.5 tab Carbidopa/Levodopa (Sinemet 25-100 Mg) 1.5 tab PO 1900,2300 [facility] Last Admin: 11/08/18 18:17 Dose: 1.5 tab Cholecalciferol (Vitamin D3) 2,000 units PO DAILY [facility] Last Admin: 11/08/18 09:17 Dose: 2,000 units Cyclobenzaprine HCl (Flexeril) 5 mg PO TID [facility] Last Admin: 11/08/18 14:30 Dose: 5 mg Docusate Sodium (Colace) 100 mg PO BID PRN PRN Reason: Constipation Last Admin: 10/31/18 08:28 Dose: 100 mg Donepezil HCl (Aricept) 5 mg PO BEDTIME [facility] Last Admin: 11/07/18 20:10 Dose: 5 mg Haloperidol Lactate (Haldol) 1 mg IVPUSH Q8H [facility] Last Admin: 11/08/18 14:27 Dose: 1 mg Hydralazine HCl (Apresoline) 10 mg PO Q6H PRN PRN Reason: Hypertension Hydrochlorothiazide (Hydrochlorothiazide) 25 mg PO DAILY [facility] Last Admin: 11/08/18 09:17 Dose: 25 mg Promethazine HCl 6.25 mg/ (Sodium Chloride) 50.25 mls @ 100 mls/hr IV Q6H PRN PRN Reason: Nausea/Vomiting Lorazepam (Ativan) 2 mg IVPUSH Q8H PRN PRN Reason: Anxiety Last Admin: 11/07/18 04:07 Dose: 2 mg Magnesium Hydroxide (Milk Of Magnesia) 30 ml PO Q12H PRN PRN Reason: Constipation Metoprolol Tartrate (Lopressor) 25 mg PO BID [facility] Last Admin: 11/08/18 09:18 Dose: 25 mg Pantoprazole Sodium (Protonix) 40 mg PO ACBREAKFAST [facility] Last Admin: 11/08/18 05:23 Dose: 40 mg Rasagiline Mesylate [Azilect] 1 Mg*Pt Own Med* 0 each PO DAILY [facility] Last Admin: 11/08/18 09:21 Dose: 1 each Polyethylene Glycol (Miralax) 17 gm PO DAILY PRN PRN Reason: Constipation Promethazine HCl (Phenergan) 25 mg PO Q6H PRN PRN Reason: Nausea/Vomiting Rosuvastatin Calcium (Crestor) 40 mg PO DAILY [facility] Last Admin: 11/08/18 09:17 Dose: 40 mg Senna/Docusate Sodium (Senna Plus) 1 tab PO BID PRN PRN Reason: Constipation Last Admin: 11/07/18 15:26 Dose: 1 tab Tamsulosin HCl (Flomax) 0.4 mg PO DAILY [facility] Last Admin: 11/08/18 09:17 Dose: 0.4 mg Thiamine HCl (Vitamin B-1) 100 mg PO DAILY [facility] Last Admin: 11/08/18 09:17 Dose: 100 mg Vit A/Vit C/Vit E/Selen/Cu/Zn/Lutei (Icaps Mv) 1 tab PO DAILY [facility] Last Admin: 11/08/18 09:17 Dose: 1 tab Discontinued Medications Benztropine Mesylate (Cogentin) 1 mg PO ONETIME ONE Stop: 11/02/18 17:49 Last Admin: 11/02/18 18:49 Dose: 1 mg Calcitriol (Rocaltrol) 0.25 mcg PO ASDIRECTED [facility] Carbidopa/Levodopa (Sinemet 25-100 Mg) 1.5 tab PO ONETIME ONE Stop: 10/28/18 20:31 Last Admin: 10/28/18 21:38 Dose: 1.5 tab Cyclobenzaprine HCl (Flexeril) 10 mg PO TID PRN PRN Reason: Muscle Spasm Last Admin: 10/30/18 16:30 Dose: 10 mg Donepezil HCl (Aricept) 5 mg PO ONETIME ONE Stop: 10/28/18 20:31 Last Admin: 10/28/18 21:39 Dose: 5 mg Haloperidol Lactate (Haldol) 2.5 mg IM Q8H PRN PRN Reason: Disruptive behavior Last Admin: 10/31/18 10:33 Dose: 2.5 mg Haloperidol Lactate (Haldol) Confirm Administered Dose 5 mg .ROUTE .STK-MED ONE Stop: 10/30/18 16:54 Last Admin: 10/30/18 17:30 Dose: Not Given Haloperidol Lactate (Haldol) 2.5 mg IM ONETIME ONE Stop: 10/30/18 17:04 Last Admin: 10/30/18 17:06 Dose: 2.5 mg Haloperidol Lactate (Haldol) 2.5 mg IVPUSH ONETIME ONE Stop: 10/30/18 17:13 Last Admin: 10/30/18 17:30 Dose: Not Given Haloperidol Lactate (Haldol) 2.5 mg IM ONETIME ONE Stop: 10/30/18 17:13 Last Admin: 10/30/18 17:14 Dose: 2.5 mg Haloperidol Lactate (Haldol) 5 mg IM Q6H PRN PRN Reason: Disruptive behavior Haloperidol Lactate (Haldol) 2.5 mg IM ONETIME ONE Stop: 10/31/18 10:49 Last Admin: 10/31/18 11:03 Dose: Not Given Haloperidol Lactate (Haldol) 2.5 mg IM Q6H PRN PRN Reason: Disruptive behavior Last Admin: 11/01/18 04:31 Dose: 2.5 mg Haloperidol Lactate (Haldol) 2 mg IM ONETIME ONE Stop: 11/05/18 22:27 Last Admin: 11/05/18 22:33 Dose: 2 mg Haloperidol Lactate (Haldol) 3 mg IVPUSH Q12H [facility] Last Admin: 11/07/18 15:25 Dose: 3 mg Haloperidol Lactate (Haldol) 3 mg IVPUSH Q12H [facility] Last Admin: 11/08/18 05:31 Dose: Not Given Sodium Chloride (Normal Saline) 500 mls @ 999 mls/hr IV .BOLUS ONE Stop: 11/02/18 09:17 Last Admin: 11/02/18 09:06 Dose: 999 mls/hr Lisinopril (Prinivil) 5 mg PO DAILY [facility] Last Admin: 11/06/18 08:10 Dose: 5 mg Lorazepam (Ativan) 0.25 mg IVPUSH ONETIME ONE Stop: 11/04/18 08:26 Last Admin: 11/04/18 08:30 Dose: 0.5 mg Lorazepam (Ativan) 0.25 mg IVPUSH ONETIME ONE Stop: 11/05/18 21:36 Last Admin: 11/05/18 21:46 Dose: 0.25 mg Lorazepam (Ativan) 0.5 mg PO Q4H PRN PRN Reason: Agitation Magnesium Sulfate (Pharmacy To Dose - Magnesium Replacement) 0 dose .XX ASDIRECTED PRN PRN Reason: RX TO WATCH MAG Potassium Chloride (Pharmacy To Dose - Potassium Replacement) 0 dose .XX ASDIRECTED PRN PRN Reason: RX TO WATCH K Potassium Chloride (Klor-Con M20) 40 meq PO BID [facility] Stop: 10/28/18 21:01 Last Admin: 10/28/18 21:45 Dose: Not Given Potassium Chloride (Klor-Con M20) 40 meq PO ONETIME ONE Stop: 10/29/18 10:46 Last Admin: 10/29/18 10:48 Dose: 40 meq Quetiapine Fumarate (Seroquel) 25 mg PO Q6H PRN PRN Reason: Disruptive Behavior Last Admin: 10/31/18 02:45 Dose: 25 mg Quetiapine Fumarate (Seroquel) 12.5 mg PO DAILY@1400 [facility] Last Admin: 11/02/18 13:28 Dose: 12.5 mg Tramadol HCl (Ultram) 50 mg PO Q6H [facility] Last Admin: 10/31/18 02:11 Dose: 50 mg Tramadol HCl (Ultram) 50 mg PO ONETIME ONE Stop: 10/30/18 20:31 Last Admin: 10/30/18 20:26 Dose: 50 mg Tramadol HCl (Ultram) 50 mg PO Q6H PRN PRN Reason: Pain - Exam Quality Assessment: DVT Prophylaxis General: Alert. No: Oriented, Cooperative (confused, combative at times) HEENT: Pupils Equal, Pupils Reactive, EOMI, Mucous Membr. Moist/[place] Neck: Supple Lungs: Clear to Auscultation, Normal Respiratory Effort Cardiovascular: Regular Rate, Irregular Rhythm GI/Abdominal Exam: Normal Bowel Sounds, Soft, Non-Tender, No Organomegaly, No Distention, No Abnormal Bruit, No Mass, Pelvis Stable (Male) Exam: Deferred Back Exam: Normal Inspection Extremities: Normal Inspection, Normal Range of Motion, Non-Tender, No Pedal Edema, Normal Capillary Refill Peripheral Pulses: 2+: Posterior Tibial (L), Posterior Tibial (R), Dorsalis Pedis (L), Dorsalis Pedis (R) Skin: Warm, Dry, Intact Neurological: No New Focal Deficit Psy/Mental Status: Alert, Agitated - Problem List & Annotations (1) Acute on chronic intracranial subdural hematoma SNOMED Code(s): 33718618 Code(s): I62.01 - NONTRAUMATIC ACUTE SUBDURAL HEMORRHAGE; I62.03 - NONTRAUMATIC CHRONIC SUBDURAL HEMORRHAGE Status: Acute Priority: High Current Visit: Yes (2) Dementia SNOMED Code(s): 90871353 Code(s): F03.90 - UNSPECIFIED DEMENTIA WITHOUT BEHAVIORAL DISTURBANCE Status: Chronic Priority: Medium Current Visit: Yes Qualifiers: Dementia type: Alzheimer's disease Alzheimer's disease onset: unspecified onset Dementia behavioral disturbance: without behavioral disturbance Qualified Code(s): G30.9 - Alzheimer's disease, unspecified; F02.80 - Dementia in other diseases classified elsewhere without behavioral disturbance (3) Failure to thrive in adult SNOMED Code(s): 964917978 Code(s): R62.7 - ADULT FAILURE TO THRIVE Status: Acute Priority: High Current Visit: Yes (4) Fall at home SNOMED Code(s): 36178391 Code(s): W19.XXXA - UNSPECIFIED FALL, INITIAL ENCOUNTER; Y92.009 - UNSP PLACE IN UNSP NON-INSTITUT (PRIVATE) RESIDENCE PLACE Status: Acute Priority: High Current Visit: Yes Qualifiers: Encounter type: initial encounter Qualified Code(s): W19.XXXA - Unspecified fall, initial encounter; Y92.009 - Unspecified place in unspecified non-institutional (private) residence as the place of occurrence of the external cause (5) Parkinson disease SNOMED Code(s): 93151426 Code(s): G20 - PARKINSON'S DISEASE Status: Chronic Priority: Medium Current Visit: Yes - Problem List Review Problem List Initiated/Reviewed/Updated: Yes - My Orders Last 24 Hours: My Active Orders 11/08/18 15:04 Dietary Supplements [RC] TIDMEALS - Plan Plan:: Assessment/Plan: Acute: Agitation with Disruptive/Aggressive Behaviors, Uncontrolled * At this point, I firmly believed this is related to his Severe Alzheimer's Dementia and Parkinson's Disease/Parkinsonian Features * These behaviors were exhibited prior to the administration of the anti- psychotics medications; in fact it was our last resort * On Aricept 5 mg po QHS and Sinemet 1.5 tab 0700 QID (0700, 1100, 1900 and 2300 ) for home maintenance medications * Failed conservative management; failed trial of Seroquel * Good response to low dose Haldol but Dr. Odell is not in favor of using it and so do I: * Dr. Odell recommends restarting Haldol--> 3mg BID--> 1mg Q8H * Currently on 1mg Cogentin BID and Sundowning Prevention/Behavior Modification Techniques * He had 2 episode last night and this morning; he responded to low dose Ativan x1 in AM (avoided anti-psychotic medications) * Episodes getting worse and have now needed to start Haldol per Dr. Odell * Dr. Odell continues to follow him * Continue Sundowning Prevention * SW/CM to assess for possible change in placement status Subdural Hematoma, Stable and Improved * Acute on Chronic (chronic portion appears to have occurred after previous CT on 08/07/2018) * Risk Factor: Parkinson's, Falls nearly daily x 6 months, daily x 2-3 weeks * CT head in ED: * 1. Acute subdural hematoma superimposed upon chronic left-sided subdural hematoma. This is an interval change from prior head CT study. This finding causes mild midline shift of approximately 7 mm. Thickness of the subdural collection is approximately 1 cm. * 2. Senescent change as noted above which is similar to prior head CT study. * 3. Increasing mucosal thickening within the paranasal sinuses most likely due to worsening chronic sinusitis. * Case discussed with Dr. Matamoros, Neurosurgeon at [facility] in ED: * Pt not good candidate for neurosurgery--> Pt would likely have difficulty w/ anesthesia and wouldn't be able to participate meaningfully w/ his recovery * Majority of the blood seems to be old * Most important thing is to keep pt from falling and hitting his head * Repeat CT scan this AM shows decreased acute brain bleed * Fall precautions; Up with assistance Confusion, Improved * 2/2 Cogentin plus Flexeril--> Anticholinergic and Sedation/Drowsiness * Aspiration and Fall Precaution * He did not get his Cogentin last night; he was up all night and woke up agitated/disruptive this AM Resolved: S/p Watery Diarrhea * C. Diff negative on screening * He is not getting antibiotics or diabetics oral agents * Suspect 2/2 stress * Monitor S/p Renal Insufficiency * 2/2 GI Loss form Diarrhea and Inadequate oral intake * IV Bolus with 1L NS; will avoid maintenance as he pulls IV access out * May repeat labs this afternoon * Advised staff to encourage patient to drink fluids S/p Failure to Thrive, Not true in my opinion * Patient looks healthy and in good shape * What perceives as "failure to thrive" is due to his underlying disease(s) taking its natural course as noted below * Risk Factors: Alzheimer's Dementia and Parkinson's Disease * Falls nearly daily x 6 months, daily x 2-3 weeks * Pt is set up to go to [facility], awaiting Medicaid paperwork--> [facility] has now declined placement * The pt's daughter doesn't feel he can safely remain at home any longer * CM/SW--> working on placement S/p QT Prolongation, Likely Resolved at this point * EKG on 10/30/2018 at 1741 shows sinus rhythm with QTc of 436--> EKG this AM shows sinus rhythm with QT of 468; corrected QT is 560 * EKG this AM 11/03/2018 at 1309 shows sinus rhythm with QTc of 444 (< or equal to 430 for men)-almost at normal range * He is no longer on any anti-psychotic medications except for Aricept and Sinemet; this could be his new baseline * Continue telemetry and monitor e-lytes (all normal this AM) Chronic: Alzheimer's Dementia Parkinson's AAA s/p graft HTN HLD GERD BPH Arthritis Back pain Gout Plan: Will schedule Haldol with prn Ativan, dementia with psychotic features Hemodynamically stable Routine AM Labs as needed CM/SW for placement--> At this point, as he is medically stable, he will likely need to be committed as he has not improved with medical intervention Aspiration/Fall Precautions Continue Sundowning Prevention DVT/GI prophylaxis Code Status: DNR/DNI; PCP: Dr. Alvarez The patient's Neurologist is Dr. Carlin
[2018-11-08] MEDS: Donepezil 10 MG Tab PO SCH (20:04)
[2018-11-08] MEDS: LORazepam 2 MG/ML SDV IVPUSH PRN (22:05)
[2018-11-09] MEDS: Acetaminophen 325 MG Tab PO PRN (03:11)
[2018-11-09] MEDS ORDERED: Acetaminophen 325 MG Supp RECTAL ONE (03:30)
[2018-11-09] MEDS ORDERED: Acetaminophen 650 MG Supp RECTAL ONE (03:40)
[2018-11-09] MEDS: Haloperidol Lactate 5 MG/ML SDV IVPUSH SCH ×3 (05:00→21:07)
[2018-11-09] MEDS: Pantoprazole 40 MG Tab.CR PO SCH (07:31)
[2018-11-09] MEDS: Carbidopa/Levodopa 25-100 MG Tab PO SCH ×5 (07:31→22:24)
[2018-11-09] MEDS: Benztropine 1 MG Tab PO SCH ×3 (08:32→19:59)
[2018-11-09] MEDS: Metoprolol Tartrate 25 MG Tab PO SCH ×3 (08:32→20:01)
[2018-11-09] MEDS: Cyclobenzaprine 10 MG Tab PO SCH ×4 (08:33→20:00)
[2018-11-09] MEDS: RASAGILINE MESYLATE 1 MG PO SCH (08:35)
[2018-11-09] MEDS: Thiamine 100 MG Tab PO SCH (10:30)
[2018-11-09] MEDS: Multivitamins with Minerals/Folic Acid/Lutein/Zeaxanth Tab PO SCH (10:30)
[2018-11-09] MEDS: Hydrochlorothiazide 25 MG Tab PO SCH (10:30)
[2018-11-09] MEDS: Allopurinol 100 MG Tab PO SCH ×2 (10:31→19:59)
[2018-11-09] MEDS: Tamsulosin 0.4 MG Cap.ER PO SCH (10:31)
[2018-11-09] MEDS: Rosuvastatin 10 MG Tab PO SCH (10:31)
[2018-11-09] MEDS: Cholecalciferol (Vitamin D3) 1,000 Unit Tab PO SCH (10:32)
[2018-11-09] MEDS: Donepezil 10 MG Tab PO SCH (19:59)
--- NOTE | 2018-11-09 21:58 | PCM.PN ---
- General Info Date of Service: 11/09/18 Admission Dx/Problem (Free Text): Admission Diagnosis/Problem Admission Diagnosis/Problem Failure to thrive in adult Subjective Update: In to see Олег. He is laying in bed and is confused and agitated. He is currently on Haldol per Dr. Odell's recommendation, which seems to help with the agitation. Clinically he is stable. We are still awaiting placement. No concerns from nursing other than his agitation. Commitment paperwork was submitted and he has again been denied by [facility]. After talking with the team, it seems that the best option for him at this time is to commit him, as he is medically stable and has not improved with medical intervention. We will need to talk with administration about options as well as the daughter on how to proceed from here. See notes for more detail. - Review of Systems Neurological: Reports: Confusion Psychiatric: Reports: Confusion, Agitation Systems Review Comment:: Unable to obtain d/t confusion - Patient Data Vitals - Most Recent: Last Vital Signs Temp 98.2 F 11/09/18 19:31 Pulse 86 11/09/18 20:01 Resp 18 11/09/18 19:31 BP 115/83 11/09/18 20:01 Pulse Ox 97 11/09/18 19:31 Weight - Most Recent: 155 lb 8 oz I&O - Last 24 Hours: Intake & Output 11/09/18 11/09/18 11/09/18 06:59 14:59 22:59 Intake Total 340 380 Balance 340 380 Med Orders - Current: Current Medications Acetaminophen (Tylenol) 650 mg PO Q4H PRN PRN Reason: Pain (Mild 1-3)/fever Last Admin: 11/08/18 18:17 Dose: 650 mg Allopurinol (Zyloprim) 100 mg PO BID [facility] Last Admin: 11/09/18 19:59 Dose: 100 mg Benztropine Mesylate (Cogentin) 1 mg PO BID [facility] Last Admin: 11/09/18 19:59 Dose: 1 mg Bisacodyl (Dulcolax) 5 mg PO DAILY PRN PRN Reason: Constipation Calcitriol (Rocaltrol) 0.25 mcg PO SuTh@0900 [facility] Last Admin: 11/07/18 12:51 Dose: 0.25 mcg Carbidopa/Levodopa (Sinemet 25-100 Mg) 1.5 tab PO 0700,1100,1500 [facility] Last Admin: 11/09/18 14:53 Dose: 1.5 tab Carbidopa/Levodopa (Sinemet 25-100 Mg) 1.5 tab PO 1900,2300 [facility] Last Admin: 11/09/18 19:57 Dose: 1.5 tab Cholecalciferol (Vitamin D3) 2,000 units PO DAILY [facility] Last Admin: 11/09/18 10:32 Dose: 2,000 units Cyclobenzaprine HCl (Flexeril) 5 mg PO TID [facility] Last Admin: 11/09/18 20:00 Dose: 5 mg Docusate Sodium (Colace) 100 mg PO BID PRN PRN Reason: Constipation Last Admin: 10/31/18 08:28 Dose: 100 mg Donepezil HCl (Aricept) 5 mg PO BEDTIME [facility] Last Admin: 11/09/18 19:59 Dose: 5 mg Haloperidol Lactate (Haldol) 1 mg IVPUSH Q8H [facility] Last Admin: 11/09/18 21:07 Dose: 1 mg Hydralazine HCl (Apresoline) 10 mg PO Q6H PRN PRN Reason: Hypertension Hydrochlorothiazide (Hydrochlorothiazide) 25 mg PO DAILY [facility] Last Admin: 11/09/18 10:30 Dose: 25 mg Promethazine HCl 6.25 mg/ (Sodium Chloride) 50.25 mls @ 100 mls/hr IV Q6H PRN PRN Reason: Nausea/Vomiting Lorazepam (Ativan) 2 mg IVPUSH Q8H PRN PRN Reason: Anxiety Last Admin: 11/08/18 22:05 Dose: 2 mg Magnesium Hydroxide (Milk Of Magnesia) 30 ml PO Q12H PRN PRN Reason: Constipation Metoprolol Tartrate (Lopressor) 25 mg PO BID [facility] Last Admin: 11/09/18 20:01 Dose: 25 mg Pantoprazole Sodium (Protonix) 40 mg PO ACBREAKFAST [facility] Last Admin: 11/09/18 07:31 Dose: 40 mg Rasagiline Mesylate [Azilect] 1 Mg*Pt Own Med* 0 each PO DAILY [facility] Last Admin: 11/09/18 08:35 Dose: Not Given Polyethylene Glycol (Miralax) 17 gm PO DAILY PRN PRN Reason: Constipation Promethazine HCl (Phenergan) 25 mg PO Q6H PRN PRN Reason: Nausea/Vomiting Rosuvastatin Calcium (Crestor) 40 mg PO DAILY [facility] Last Admin: 11/09/18 10:31 Dose: 40 mg Senna/Docusate Sodium (Senna Plus) 1 tab PO BID PRN PRN Reason: Constipation Last Admin: 11/07/18 15:26 Dose: 1 tab Tamsulosin HCl (Flomax) 0.4 mg PO DAILY [facility] Last Admin: 11/09/18 10:31 Dose: 0.4 mg Thiamine HCl (Vitamin B-1) 100 mg PO DAILY [facility] Last Admin: 11/09/18 10:30 Dose: 100 mg Vit A/Vit C/Vit E/Selen/Cu/Zn/Lutei (Icaps Mv) 1 tab PO DAILY [facility] Last Admin: 11/09/18 10:30 Dose: 1 tab Discontinued Medications Acetaminophen (Tylenol) 650 mg RECTAL NOW ONE Stop: 11/09/18 03:41 Last Admin: 11/09/18 04:05 Dose: Not Given Benztropine Mesylate (Cogentin) 1 mg PO ONETIME ONE Stop: 11/02/18 17:49 Last Admin: 11/02/18 18:49 Dose: 1 mg Calcitriol (Rocaltrol) 0.25 mcg PO ASDIRECTED [facility] Carbidopa/Levodopa (Sinemet 25-100 Mg) 1.5 tab PO ONETIME ONE Stop: 10/28/18 20:31 Last Admin: 10/28/18 21:38 Dose: 1.5 tab Cyclobenzaprine HCl (Flexeril) 10 mg PO TID PRN PRN Reason: Muscle Spasm Last Admin: 10/30/18 16:30 Dose: 10 mg Donepezil HCl (Aricept) 5 mg PO ONETIME ONE Stop: 10/28/18 20:31 Last Admin: 10/28/18 21:39 Dose: 5 mg Haloperidol Lactate (Haldol) 2.5 mg IM Q8H PRN PRN Reason: Disruptive behavior Last Admin: 10/31/18 10:33 Dose: 2.5 mg Haloperidol Lactate (Haldol) Confirm Administered Dose 5 mg .ROUTE .STK-MED ONE Stop: 10/30/18 16:54 Last Admin: 10/30/18 17:30 Dose: Not Given Haloperidol Lactate (Haldol) 2.5 mg IM ONETIME ONE Stop: 10/30/18 17:04 Last Admin: 10/30/18 17:06 Dose: 2.5 mg Haloperidol Lactate (Haldol) 2.5 mg IVPUSH ONETIME ONE Stop: 10/30/18 17:13 Last Admin: 10/30/18 17:30 Dose: Not Given Haloperidol Lactate (Haldol) 2.5 mg IM ONETIME ONE Stop: 10/30/18 17:13 Last Admin: 10/30/18 17:14 Dose: 2.5 mg Haloperidol Lactate (Haldol) 5 mg IM Q6H PRN PRN Reason: Disruptive behavior Haloperidol Lactate (Haldol) 2.5 mg IM ONETIME ONE Stop: 10/31/18 10:49 Last Admin: 10/31/18 11:03 Dose: Not Given Haloperidol Lactate (Haldol) 2.5 mg IM Q6H PRN PRN Reason: Disruptive behavior Last Admin: 11/01/18 04:31 Dose: 2.5 mg Haloperidol Lactate (Haldol) 2 mg IM ONETIME ONE Stop: 11/05/18 22:27 Last Admin: 11/05/18 22:33 Dose: 2 mg Haloperidol Lactate (Haldol) 3 mg IVPUSH Q12H [facility] Last Admin: 11/07/18 15:25 Dose: 3 mg Haloperidol Lactate (Haldol) 3 mg IVPUSH Q12H [facility] Last Admin: 11/08/18 05:31 Dose: Not Given Sodium Chloride (Normal Saline) 500 mls @ 999 mls/hr IV .BOLUS ONE Stop: 11/02/18 09:17 Last Admin: 11/02/18 09:06 Dose: 999 mls/hr Lisinopril (Prinivil) 5 mg PO DAILY [facility] Last Admin: 11/06/18 08:10 Dose: 5 mg Lorazepam (Ativan) 0.25 mg IVPUSH ONETIME ONE Stop: 11/04/18 08:26 Last Admin: 11/04/18 08:30 Dose: 0.5 mg Lorazepam (Ativan) 0.25 mg IVPUSH ONETIME ONE Stop: 11/05/18 21:36 Last Admin: 11/05/18 21:46 Dose: 0.25 mg Lorazepam (Ativan) 0.5 mg PO Q4H PRN PRN Reason: Agitation Magnesium Sulfate (Pharmacy To Dose - Magnesium Replacement) 0 dose .XX ASDIRECTED PRN PRN Reason: RX TO WATCH MAG Potassium Chloride (Pharmacy To Dose - Potassium Replacement) 0 dose .XX ASDIRECTED PRN PRN Reason: RX TO WATCH K Potassium Chloride (Klor-Con M20) 40 meq PO BID [facility] Stop: 10/28/18 21:01 Last Admin: 10/28/18 21:45 Dose: Not Given Potassium Chloride (Klor-Con M20) 40 meq PO ONETIME ONE Stop: 10/29/18 10:46 Last Admin: 10/29/18 10:48 Dose: 40 meq Quetiapine Fumarate (Seroquel) 25 mg PO Q6H PRN PRN Reason: Disruptive Behavior Last Admin: 10/31/18 02:45 Dose: 25 mg Quetiapine Fumarate (Seroquel) 12.5 mg PO DAILY@1400 [facility] Last Admin: 11/02/18 13:28 Dose: 12.5 mg Tramadol HCl (Ultram) 50 mg PO Q6H [facility] Last Admin: 10/31/18 02:11 Dose: 50 mg Tramadol HCl (Ultram) 50 mg PO ONETIME ONE Stop: 10/30/18 20:31 Last Admin: 10/30/18 20:26 Dose: 50 mg Tramadol HCl (Ultram) 50 mg PO Q6H PRN PRN Reason: Pain - Exam Quality Assessment: DVT Prophylaxis General: Alert. No: Oriented HEENT: Pupils Equal, Pupils Reactive, EOMI, Mucous Membr. Moist/[place] Neck: Supple Lungs: Clear to Auscultation, Normal Respiratory Effort Cardiovascular: Regular Rate, Regular Rhythm GI/Abdominal Exam: Normal Bowel Sounds, Soft, Non-Tender, No Organomegaly, No Distention, No Abnormal Bruit, No Mass, Pelvis Stable (Male) Exam: Deferred Back Exam: Normal Inspection Extremities: Normal Inspection, Normal Range of Motion, Non-Tender, No Pedal Edema, Normal Capillary Refill Peripheral Pulses: 2+: Posterior Tibial (L), Posterior Tibial (R), Dorsalis Pedis (L), Dorsalis Pedis (R) Skin: Warm, Dry, Intact Neurological: No New Focal Deficit Psy/Mental Status: Alert, Agitated - Problem List & Annotations (1) Acute on chronic intracranial subdural hematoma SNOMED Code(s): 12707657 Code(s): I62.01 - NONTRAUMATIC ACUTE SUBDURAL HEMORRHAGE; I62.03 - NONTRAUMATIC CHRONIC SUBDURAL HEMORRHAGE Status: Acute Priority: High Current Visit: Yes (2) Dementia SNOMED Code(s): 70339200 Code(s): F03.90 - UNSPECIFIED DEMENTIA WITHOUT BEHAVIORAL DISTURBANCE Status: Chronic Priority: Medium Current Visit: Yes Qualifiers: Dementia type: Alzheimer's disease Alzheimer's disease onset: unspecified onset Dementia behavioral disturbance: without behavioral disturbance Qualified Code(s): G30.9 - Alzheimer's disease, unspecified; F02.80 - Dementia in other diseases classified elsewhere without behavioral disturbance (3) Failure to thrive in adult SNOMED Code(s): 992430497 Code(s): R62.7 - ADULT FAILURE TO THRIVE Status: Acute Priority: High Current Visit: Yes (4) Fall at home SNOMED Code(s): 78364400 Code(s): W19.XXXA - UNSPECIFIED FALL, INITIAL ENCOUNTER; Y92.009 - UNSP PLACE IN UNSP NON-INSTITUT (PRIVATE) RESIDENCE PLACE Status: Acute Priority: High Current Visit: Yes Qualifiers: Encounter type: initial encounter Qualified Code(s): W19.XXXA - Unspecified fall, initial encounter; Y92.009 - Unspecified place in unspecified non-institutional (private) residence as the place of occurrence of the external cause (5) Parkinson disease SNOMED Code(s): 20373634 Code(s): G20 - PARKINSON'S DISEASE Status: Chronic Priority: Medium Current Visit: Yes - Problem List Review Problem List Initiated/Reviewed/Updated: Yes - Plan Plan:: Assessment/Plan: Acute: Agitation with Disruptive/Aggressive Behaviors, Uncontrolled * At this point, I firmly believed this is related to his Severe Alzheimer's Dementia and Parkinson's Disease/Parkinsonian Features * These behaviors were exhibited prior to the administration of the anti- psychotics medications; in fact it was our last resort * On Aricept 5 mg po QHS and Sinemet 1.5 tab 0700 QID (0700, 1100, 1900 and 2300 ) for home maintenance medications * Failed conservative management; failed trial of Seroquel * Good response to low dose Haldol but Dr. Odell is not in favor of using it and so do I: * Dr. Odell recommends restarting Haldol--> 3mg BID--> 1mg Q8H * Currently on 1mg Cogentin BID and Sundowning Prevention/Behavior Modification Techniques * He had 2 episode last night and this morning; he responded to low dose Ativan x1 in AM (avoided anti-psychotic medications) * Episodes getting worse and have now needed to start Haldol per Dr. Odell * Dr. Odell continues to follow him * Continue Sundowning Prevention * SW/CM to assess for possible change in placement status Subdural Hematoma, Stable and Improved * Acute on Chronic (chronic portion appears to have occurred after previous CT on 08/07/2018) * Risk Factor: Parkinson's, Falls nearly daily x 6 months, daily x 2-3 weeks * CT head in ED: * 1. Acute subdural hematoma superimposed upon chronic left-sided subdural hematoma. This is an interval change from prior head CT study. This finding causes mild midline shift of approximately 7 mm. Thickness of the subdural collection is approximately 1 cm. * 2. Senescent change as noted above which is similar to prior head CT study. * 3. Increasing mucosal thickening within the paranasal sinuses most likely due to worsening chronic sinusitis. * Case discussed with Dr. Matamoros, Neurosurgeon at [facility] in ED: * Pt not good candidate for neurosurgery--> Pt would likely have difficulty w/ anesthesia and wouldn't be able to participate meaningfully w/ his recovery * Majority of the blood seems to be old * Most important thing is to keep pt from falling and hitting his head * Repeat CT scan this AM shows decreased acute brain bleed * Fall precautions; Up with assistance Confusion, Improved * 2/2 Cogentin plus Flexeril--> Anticholinergic and Sedation/Drowsiness * Aspiration and Fall Precaution * He did not get his Cogentin last night; he was up all night and woke up agitated/disruptive this AM Resolved: S/p Watery Diarrhea * C. Diff negative on screening * He is not getting antibiotics or diabetics oral agents * Suspect 2/2 stress * Monitor S/p Renal Insufficiency * 2/2 GI Loss form Diarrhea and Inadequate oral intake * IV Bolus with 1L NS; will avoid maintenance as he pulls IV access out * May repeat labs this afternoon * Advised staff to encourage patient to drink fluids S/p Failure to Thrive, Not true in my opinion * Patient looks healthy and in good shape * What perceives as "failure to thrive" is due to his underlying disease(s) taking its natural course as noted below * Risk Factors: Alzheimer's Dementia and Parkinson's Disease * Falls nearly daily x 6 months, daily x 2-3 weeks * Pt is set up to go to [facility], awaiting Medicaid paperwork--> [facility] has now declined placement * The pt's daughter doesn't feel he can safely remain at home any longer * CM/SW--> working on placement S/p QT Prolongation, Likely Resolved at this point * EKG on 10/30/2018 at 1741 shows sinus rhythm with QTc of 436--> EKG this AM shows sinus rhythm with QT of 468; corrected QT is 560 * EKG this AM 11/03/2018 at 1309 shows sinus rhythm with QTc of 444 (< or equal to 430 for men)-almost at normal range * He is no longer on any anti-psychotic medications except for Aricept and Sinemet; this could be his new baseline * Continue telemetry and monitor e-lytes (all normal this AM) Chronic: Alzheimer's Dementia Parkinson's AAA s/p graft HTN HLD GERD BPH Arthritis Back pain Gout Plan: Will schedule Haldol with prn Ativan, dementia with psychotic features Hemodynamically stable Routine AM Labs as needed CM/SW for placement--> At this point, as he is medically stable, he will likely need to be committed as he has not improved with medical intervention Aspiration/Fall Precautions Continue Sundowning Prevention DVT/GI prophylaxis Code Status: DNR/DNI; PCP: Dr. Alvarez The patient's Neurologist is Dr. Carlin
[2018-11-10] MEDS: Carbidopa/Levodopa 25-100 MG Tab PO SCH ×5 (06:02→21:59)
[2018-11-10] MEDS: Pantoprazole 40 MG Tab.CR PO SCH (06:03)
[2018-11-10] MEDS: Haloperidol Lactate 5 MG/ML SDV IVPUSH SCH ×3 (06:03→21:53)
--- NOTE | 2018-11-10 09:37 | CT ---
Head CT Technique: Multiple axial sections through the brain were obtained. Intravenous contrast was not utilized. Comparison: Prior head CT study of 11/03/18. Findings: Left-sided subdural fluid collection is seen which appears subacute. No acute hemorrhage is identified. Thickness of this fluid collection is approximately 1 cm which is slightly more prominent than on prior exam (measuring approximately 8.6 mm in similar measurement plane). This finding causes mild midline shift by about 6.3 mm which is slightly increased in amount from prior exam at which time it measures about 5.3 mm in similar measurement plane. Ventricles along with basal cisterns and sulci over the convexities are moderately prominent. Diminished density noted within portions of the periventricular white matter compatible with small vessel ischemic demyelination change. 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 Artifact obscures a portion of the left cerebellar hemisphere. No acute calvarial abnormality is appreciated. Visualized sinuses are clear. Impression: 1. Subacute left-sided subdural hematoma without acute hemorrhage. This subdural hematoma has slightly increased in thickness from prior exam as well as slight increased midline shift to the right side from prior exam. 2. Stable senescent change. Diagnostic code #3
[2018-11-10] MEDS: Benztropine 1 MG Tab PO SCH ×2 (10:10→21:53)
[2018-11-10] MEDS: Acetaminophen 325 MG Tab PO PRN (10:11)
[2018-11-10] MEDS: Tamsulosin 0.4 MG Cap.ER PO SCH (10:11)
[2018-11-10] MEDS: RASAGILINE MESYLATE 1 MG PO SCH (10:12)
[2018-11-10] MEDS: Cyclobenzaprine 10 MG Tab PO SCH ×3 (10:12→21:53)
[2018-11-10] MEDS: Thiamine 100 MG Tab PO SCH (10:15)
[2018-11-10] MEDS: Allopurinol 100 MG Tab PO SCH ×2 (10:15→21:56)
[2018-11-10] MEDS: Hydrochlorothiazide 25 MG Tab PO SCH (10:17)
[2018-11-10] MEDS: Rosuvastatin 10 MG Tab PO SCH (10:17)
[2018-11-10] MEDS: Metoprolol Tartrate 25 MG Tab PO SCH ×2 (10:20→21:55)
[2018-11-10] MEDS: Cholecalciferol (Vitamin D3) 1,000 Unit Tab PO SCH (10:20)
[2018-11-10] MEDS: Multivitamins with Minerals/Folic Acid/Lutein/Zeaxanth Tab PO SCH (10:25)
--- NOTE | 2018-11-10 19:46 | PCM.PN ---
- General Info Date of Service: 11/10/18 Admission Dx/Problem (Free Text): Admission Diagnosis/Problem Admission Diagnosis/Problem Failure to thrive in adult Subjective Update: In to see Олег. He is laying in bed and is confused and agitated. Clinically he is stable. No concerns from nursing other than his agitation. NAMRATA has talked with Dr. Mathew and Олег has now been accepted at [facility]. I gave report to the on-call doctor, Dr. Bhanu Engel. He will be picked up for transport at 6:30am tomorrow morning. Functional Status: Reports: Pain Controlled, Tolerating Diet, Urinating - Review of Systems Psychiatric: Reports: Other (Unable to obtain d/t confusion) - Patient Data Vitals - Most Recent: Last Vital Signs Temp 98.2 F 11/10/18 15:16 Pulse 72 11/10/18 15:16 Resp 18 11/10/18 15:16 BP 106/62 11/10/18 15:16 Pulse Ox 99 11/10/18 15:16 Weight - Most Recent: 156 lb 1.6 oz I&O - Last 24 Hours: Intake & Output 11/10/18 11/10/18 11/10/18 06:59 14:59 22:59 Intake Total 1540 0 300 Output Total 125 150 Balance 1415 0 150 Med Orders - Current: Current Medications Acetaminophen (Tylenol) 650 mg PO Q4H PRN PRN Reason: Pain (Mild 1-3)/fever Last Admin: 11/10/18 10:11 Dose: 650 mg Allopurinol (Zyloprim) 100 mg PO BID [facility] Last Admin: 11/10/18 10:15 Dose: 100 mg Benztropine Mesylate (Cogentin) 1 mg PO BID [facility] Last Admin: 11/10/18 10:10 Dose: 1 mg Bisacodyl (Dulcolax) 5 mg PO DAILY PRN PRN Reason: Constipation Calcitriol (Rocaltrol) 0.25 mcg PO SuTh@0900 [facility] Last Admin: 11/07/18 12:51 Dose: 0.25 mcg Carbidopa/Levodopa (Sinemet 25-100 Mg) 1.5 tab PO 0700,1100,1500 [facility] Last Admin: 11/10/18 15:21 Dose: 1.5 tab Carbidopa/Levodopa (Sinemet 25-100 Mg) 1.5 tab PO 1900,2300 [facility] Last Admin: 11/10/18 18:31 Dose: 1.5 tab Cholecalciferol (Vitamin D3) 2,000 units PO DAILY [facility] Last Admin: 11/10/18 10:20 Dose: 2,000 units Cyclobenzaprine HCl (Flexeril) 5 mg PO TID [facility] Last Admin: 11/10/18 15:21 Dose: 5 mg Docusate Sodium (Colace) 100 mg PO BID PRN PRN Reason: Constipation Last Admin: 10/31/18 08:28 Dose: 100 mg Donepezil HCl (Aricept) 5 mg PO BEDTIME [facility] Last Admin: 11/09/18 19:59 Dose: 5 mg Haloperidol Lactate (Haldol) 1 mg IVPUSH Q8H [facility] Last Admin: 11/10/18 15:14 Dose: 1 mg Hydralazine HCl (Apresoline) 10 mg PO Q6H PRN PRN Reason: Hypertension Hydrochlorothiazide (Hydrochlorothiazide) 25 mg PO DAILY [facility] Last Admin: 11/10/18 10:17 Dose: 25 mg Promethazine HCl 6.25 mg/ (Sodium Chloride) 50.25 mls @ 100 mls/hr IV Q6H PRN PRN Reason: Nausea/Vomiting Lorazepam (Ativan) 2 mg IVPUSH Q8H PRN PRN Reason: Anxiety Last Admin: 11/08/18 22:05 Dose: 2 mg Magnesium Hydroxide (Milk Of Magnesia) 30 ml PO Q12H PRN PRN Reason: Constipation Last Admin: 11/10/18 18:28 Dose: 30 ml Metoprolol Tartrate (Lopressor) 25 mg PO BID [facility] Last Admin: 11/10/18 10:20 Dose: 25 mg Pantoprazole Sodium (Protonix) 40 mg PO ACBREAKFAST [facility] Last Admin: 11/10/18 06:03 Dose: 40 mg Rasagiline Mesylate [Azilect] 1 Mg*Pt Own Med* 0 each PO DAILY [facility] Last Admin: 11/10/18 10:12 Dose: 1 each Polyethylene Glycol (Miralax) 17 gm PO DAILY PRN PRN Reason: Constipation Promethazine HCl (Phenergan) 25 mg PO Q6H PRN PRN Reason: Nausea/Vomiting Rosuvastatin Calcium (Crestor) 40 mg PO DAILY [facility] Last Admin: 11/10/18 10:17 Dose: 40 mg Senna/Docusate Sodium (Senna Plus) 1 tab PO BID PRN PRN Reason: Constipation Last Admin: 11/07/18 15:26 Dose: 1 tab Tamsulosin HCl (Flomax) 0.4 mg PO DAILY [facility] Last Admin: 11/10/18 10:11 Dose: 0.4 mg Thiamine HCl (Vitamin B-1) 100 mg PO DAILY [facility] Last Admin: 11/10/18 10:15 Dose: 100 mg Vit A/Vit C/Vit E/Selen/Cu/Zn/Lutei (Icaps Mv) 1 tab PO DAILY [facility] Last Admin: 11/10/18 10:25 Dose: 1 tab Discontinued Medications Acetaminophen (Tylenol) 650 mg RECTAL NOW ONE Stop: 11/09/18 03:41 Last Admin: 11/09/18 04:05 Dose: Not Given Benztropine Mesylate (Cogentin) 1 mg PO ONETIME ONE Stop: 11/02/18 17:49 Last Admin: 11/02/18 18:49 Dose: 1 mg Calcitriol (Rocaltrol) 0.25 mcg PO ASDIRECTED [facility] Carbidopa/Levodopa (Sinemet 25-100 Mg) 1.5 tab PO ONETIME ONE Stop: 10/28/18 20:31 Last Admin: 10/28/18 21:38 Dose: 1.5 tab Cyclobenzaprine HCl (Flexeril) 10 mg PO TID PRN PRN Reason: Muscle Spasm Last Admin: 10/30/18 16:30 Dose: 10 mg Donepezil HCl (Aricept) 5 mg PO ONETIME ONE Stop: 10/28/18 20:31 Last Admin: 10/28/18 21:39 Dose: 5 mg Haloperidol Lactate (Haldol) 2.5 mg IM Q8H PRN PRN Reason: Disruptive behavior Last Admin: 10/31/18 10:33 Dose: 2.5 mg Haloperidol Lactate (Haldol) Confirm Administered Dose 5 mg .ROUTE .STK-MED ONE Stop: 10/30/18 16:54 Last Admin: 10/30/18 17:30 Dose: Not Given Haloperidol Lactate (Haldol) 2.5 mg IM ONETIME ONE Stop: 10/30/18 17:04 Last Admin: 10/30/18 17:06 Dose: 2.5 mg Haloperidol Lactate (Haldol) 2.5 mg IVPUSH ONETIME ONE Stop: 10/30/18 17:13 Last Admin: 10/30/18 17:30 Dose: Not Given Haloperidol Lactate (Haldol) 2.5 mg IM ONETIME ONE Stop: 10/30/18 17:13 Last Admin: 10/30/18 17:14 Dose: 2.5 mg Haloperidol Lactate (Haldol) 5 mg IM Q6H PRN PRN Reason: Disruptive behavior Haloperidol Lactate (Haldol) 2.5 mg IM ONETIME ONE Stop: 10/31/18 10:49 Last Admin: 10/31/18 11:03 Dose: Not Given Haloperidol Lactate (Haldol) 2.5 mg IM Q6H PRN PRN Reason: Disruptive behavior Last Admin: 11/01/18 04:31 Dose: 2.5 mg Haloperidol Lactate (Haldol) 2 mg IM ONETIME ONE Stop: 11/05/18 22:27 Last Admin: 11/05/18 22:33 Dose: 2 mg Haloperidol Lactate (Haldol) 3 mg IVPUSH Q12H [facility] Last Admin: 11/07/18 15:25 Dose: 3 mg Haloperidol Lactate (Haldol) 3 mg IVPUSH Q12H [facility] Last Admin: 11/08/18 05:31 Dose: Not Given Sodium Chloride (Normal Saline) 500 mls @ 999 mls/hr IV .BOLUS ONE Stop: 11/02/18 09:17 Last Admin: 11/02/18 09:06 Dose: 999 mls/hr Lisinopril (Prinivil) 5 mg PO DAILY [facility] Last Admin: 11/06/18 08:10 Dose: 5 mg Lorazepam (Ativan) 0.25 mg IVPUSH ONETIME ONE Stop: 11/04/18 08:26 Last Admin: 11/04/18 08:30 Dose: 0.5 mg Lorazepam (Ativan) 0.25 mg IVPUSH ONETIME ONE Stop: 11/05/18 21:36 Last Admin: 11/05/18 21:46 Dose: 0.25 mg Lorazepam (Ativan) 0.5 mg PO Q4H PRN PRN Reason: Agitation Magnesium Sulfate (Pharmacy To Dose - Magnesium Replacement) 0 dose .XX ASDIRECTED PRN PRN Reason: RX TO WATCH MAG Potassium Chloride (Pharmacy To Dose - Potassium Replacement) 0 dose .XX ASDIRECTED PRN PRN Reason: RX TO WATCH K Potassium Chloride (Klor-Con M20) 40 meq PO BID [facility] Stop: 10/28/18 21:01 Last Admin: 10/28/18 21:45 Dose: Not Given Potassium Chloride (Klor-Con M20) 40 meq PO ONETIME ONE Stop: 10/29/18 10:46 Last Admin: 10/29/18 10:48 Dose: 40 meq Quetiapine Fumarate (Seroquel) 25 mg PO Q6H PRN PRN Reason: Disruptive Behavior Last Admin: 10/31/18 02:45 Dose: 25 mg Quetiapine Fumarate (Seroquel) 12.5 mg PO DAILY@1400 [facility] Last Admin: 11/02/18 13:28 Dose: 12.5 mg Tramadol HCl (Ultram) 50 mg PO Q6H [facility] Last Admin: 10/31/18 02:11 Dose: 50 mg Tramadol HCl (Ultram) 50 mg PO ONETIME ONE Stop: 10/30/18 20:31 Last Admin: 10/30/18 20:26 Dose: 50 mg Tramadol HCl (Ultram) 50 mg PO Q6H PRN PRN Reason: Pain - Exam Quality Assessment: DVT Prophylaxis General: Alert. No: Oriented HEENT: Pupils Equal, Pupils Reactive, EOMI, Mucous Membr. Moist/[place] Neck: Supple Lungs: Clear to Auscultation, Normal Respiratory Effort Cardiovascular: Regular Rate, Regular Rhythm GI/Abdominal Exam: Normal Bowel Sounds, Soft, Non-Tender, No Organomegaly, No Distention, No Abnormal Bruit, No Mass, Pelvis Stable (Male) Exam: Deferred Back Exam: Normal Inspection Extremities: Normal Inspection, Normal Range of Motion, Non-Tender, No Pedal Edema, Normal Capillary Refill Peripheral Pulses: 2+: Posterior Tibial (L), Posterior Tibial (R), Dorsalis Pedis (L), Dorsalis Pedis (R) Skin: Warm, Dry, Intact Neurological: No New Focal Deficit Psy/Mental Status: Alert, Agitated, Other (Confused) - Problem List & Annotations (1) Acute on chronic intracranial subdural hematoma SNOMED Code(s): 58042005 Code(s): I62.01 - NONTRAUMATIC ACUTE SUBDURAL HEMORRHAGE; I62.03 - NONTRAUMATIC CHRONIC SUBDURAL HEMORRHAGE Status: Acute Priority: High Current Visit: Yes (2) Dementia SNOMED Code(s): 61980606 Code(s): F03.90 - UNSPECIFIED DEMENTIA WITHOUT BEHAVIORAL DISTURBANCE Status: Chronic Priority: Medium Current Visit: Yes Qualifiers: Dementia type: Alzheimer's disease Alzheimer's disease onset: unspecified onset Dementia behavioral disturbance: without behavioral disturbance Qualified Code(s): G30.9 - Alzheimer's disease, unspecified; F02.80 - Dementia in other diseases classified elsewhere without behavioral disturbance (3) Failure to thrive in adult SNOMED Code(s): 740526379 Code(s): R62.7 - ADULT FAILURE TO THRIVE Status: Acute Priority: High Current Visit: Yes (4) Fall at home SNOMED Code(s): 89269952 Code(s): W19.XXXA - UNSPECIFIED FALL, INITIAL ENCOUNTER; Y92.009 - UNSP PLACE IN UNSP NON-INSTITUT (PRIVATE) RESIDENCE PLACE Status: Acute Priority: High Current Visit: Yes Qualifiers: Encounter type: initial encounter Qualified Code(s): W19.XXXA - Unspecified fall, initial encounter; Y92.009 - Unspecified place in unspecified non-institutional (private) residence as the place of occurrence of the external cause (5) Parkinson disease SNOMED Code(s): 21182584 Code(s): G20 - PARKINSON'S DISEASE Status: Chronic Priority: Medium Current Visit: Yes - Problem List Review Problem List Initiated/Reviewed/Updated: Yes - Plan Plan:: Assessment/Plan: Acute: Agitation with Disruptive/Aggressive Behaviors, Uncontrolled * At this point, I firmly believed this is related to his Severe Alzheimer's Dementia and Parkinson's Disease/Parkinsonian Features * These behaviors were exhibited prior to the administration of the anti- psychotics medications; in fact it was our last resort * On Aricept 5 mg po QHS and Sinemet 1.5 tab 0700 QID (0700, 1100, 1900 and 2300 ) for home maintenance medications * Failed conservative management; failed trial of Seroquel * Good response to low dose Haldol but Dr. Odell is not in favor of using it and so do I: * Dr. Odell recommends restarting Haldol--> 3mg BID--> 1mg Q8H * Currently on 1mg Cogentin BID and Sundowning Prevention/Behavior Modification Techniques * He had 2 episode last night and this morning; he responded to low dose Ativan x1 in AM (avoided anti-psychotic medications) * Episodes getting worse and have now needed to start Haldol per Dr. Odell * Dr. Odell continues to follow him * Continue Sundowning Prevention * SW/CM to assess for possible change in placement status Subdural Hematoma, Stable * Acute on Chronic (chronic portion appears to have occurred after previous CT on 08/07/2018) * Risk Factor: Parkinson's, Falls nearly daily x 6 months, daily x 2-3 weeks * CT head in ED: * 1. Acute subdural hematoma superimposed upon chronic left-sided subdural hematoma. This is an interval change from prior head CT study. This finding causes mild midline shift of approximately 7 mm. Thickness of the subdural collection is approximately 1 cm. * 2. Senescent change as noted above which is similar to prior head CT study. * 3. Increasing mucosal thickening within the paranasal sinuses most likely due to worsening chronic sinusitis. * Case discussed with Dr. Matamoros, Neurosurgeon at [facility] in ED: * Pt not good candidate for neurosurgery--> Pt would likely have difficulty w/ anesthesia and wouldn't be able to participate meaningfully w/ his recovery * Majority of the blood seems to be old * Most important thing is to keep pt from falling and hitting his head * Repeat CT scan 11/10/18: * Subacute left-sided subdural hematoma without acute hemorrhage. This subdural hematoma has slightly increased in thickness from prior exam as well as slight increased midline shift (about 1mm) to the right side from prior exam. * Fall precautions; Up with assistance Confusion, Improved * 2/2 Cogentin plus Flexeril--> Anticholinergic and Sedation/Drowsiness * Aspiration and Fall Precaution * He did not get his Cogentin last night; he was up all night and woke up agitated/disruptive this AM Resolved: S/p Watery Diarrhea * C. Diff negative on screening * He is not getting antibiotics or diabetics oral agents * Suspect 2/2 stress * Monitor S/p Renal Insufficiency * 2/2 GI Loss form Diarrhea and Inadequate oral intake * IV Bolus with 1L NS; will avoid maintenance as he pulls IV access out * May repeat labs this afternoon * Advised staff to encourage patient to drink fluids S/p Failure to Thrive, Not true in my opinion * Patient looks healthy and in good shape * What perceives as "failure to thrive" is due to his underlying disease(s) taking its natural course as noted below * Risk Factors: Alzheimer's Dementia and Parkinson's Disease * Falls nearly daily x 6 months, daily x 2-3 weeks * Pt is set up to go to [facility], awaiting Medicaid paperwork--> [facility] has now declined placement * The pt's daughter doesn't feel he can safely remain at home any longer * CM/SW--> working on placement S/p QT Prolongation, Likely Resolved at this point * EKG on 10/30/2018 at 1741 shows sinus rhythm with QTc of 436--> EKG this AM shows sinus rhythm with QT of 468; corrected QT is 560 * EKG this AM 11/03/2018 at 1309 shows sinus rhythm with QTc of 444 (< or equal to 430 for men)-almost at normal range * He is no longer on any anti-psychotic medications except for Aricept and Sinemet; this could be his new baseline * Continue telemetry and monitor e-lytes (all normal this AM) Chronic: Alzheimer's Dementia Parkinson's AAA s/p graft HTN HLD GERD BPH Arthritis Back pain Gout Plan: Will schedule Haldol with prn Ativan, dementia with psychotic features Hemodynamically stable Routine AM Labs as needed CM/SW for placement--> At this point, as he is medically stable, he will likely need to be committed as he has not improved with medical intervention Aspiration/Fall Precautions Continue Sundowning Prevention DVT/GI prophylaxis Code Status: DNR/DNI; PCP: Dr. Alvarez The patient's Neurologist is Dr. Tesfaye OTT able to get acceptance from Dr. Mathew at [facility]. Discussed case with Dr. Bhanu Engel. He will be transferred tomorrow at 630AM ([place]).
--- NOTE | 2018-11-10 20:00 | PCM.DCSUM1 ---
<Mohit Bond - Last Filed: 11/11/18 07:19> Discharge Summary - Discharge Data Discharge Disposition: DC/Tfer W/I Hosp To [facility] Condition: Fair - Discharge Diagnosis/Problem(s) (1) Acute on chronic intracranial subdural hematoma SNOMED Code(s): 15154746 ICD Code: I62.01 - NONTRAUMATIC ACUTE SUBDURAL HEMORRHAGE; I62.03 - NONTRAUMATIC CHRONIC SUBDURAL HEMORRHAGE Status: Acute Priority: High (2) Failure to thrive in adult SNOMED Code(s): 959558724 ICD Code: R62.7 - ADULT FAILURE TO THRIVE Status: Acute Priority: High (3) Fall at home SNOMED Code(s): 06607817 ICD Code: W19.XXXA - UNSPECIFIED FALL, INITIAL ENCOUNTER; Y92.009 - UNSP PLACE IN UNSP NON-INSTITUT (PRIVATE) RESIDENCE PLACE Status: Acute Priority: High Qualifiers: Encounter type: initial encounter Qualified Code(s): W19.XXXA - Unspecified fall, initial encounter; Y92.009 - Unspecified place in unspecified non-institutional (private) residence as the place of occurrence of the external cause (4) Dementia SNOMED Code(s): 30888703 ICD Code: F03.90 - UNSPECIFIED DEMENTIA WITHOUT BEHAVIORAL DISTURBANCE Status: Chronic Priority: Medium Qualifiers: Dementia type: Alzheimer's disease Alzheimer's disease onset: unspecified onset Dementia behavioral disturbance: without behavioral disturbance Qualified Code(s): G30.9 - Alzheimer's disease, unspecified; F02.80 - Dementia in other diseases classified elsewhere without behavioral disturbance (5) Parkinson disease SNOMED Code(s): 25504142 ICD Code: G20 - PARKINSON'S DISEASE Status: Chronic Priority: Medium - Patient Summary/Data Consults: Consultations 10/27/18 21:52 Consult to Case Management/Tube Puller [CONS] Routine OT Evaluation and Treatment [CONS] Routine PT Evaluation and Treatment [CONS] Routine 10/30/18 18:38 Consult to Physician [CONS] Routine - Discharge Plan Home Medications: Home Meds Allopurinol [Zyloprim] 100 mg PO BID 06/04/17 [History] Aspirin 325 mg PO DAILY 06/04/17 [History] Calcitriol [Rocaltrol] 0.25 mcg PO ASDIRECTED 06/04/17 [History] Cholecalciferol (Vitamin D3) [Vitamin D3] 2,000 mg PO DAILY 06/04/17 [History] FA/Lycopene/Lut/MV,Ca,Iron,Min [Centrum] 1 tab PO DAILY 06/04/17 [History] Lisinopril 5 mg PO DAILY 06/04/17 [History] Metoprolol Tartrate 12.5 mg PO BID 06/04/17 [History] Omeprazole 20 mg PO BIDAC 06/04/17 [History] Rosuvastatin Calcium 40 mg PO DAILY 06/04/17 [History] Tamsulosin [Flomax] 0.8 mg PO DAILY 06/04/17 [History] Thiamine Mononitrate [Vitamin B-1] 100 mg PO DAILY 06/04/17 [History] Carbidopa/Levodopa [Carbidopa-Levodopa 25-100] 1.5 tab PO ASDIRECTED 10/28/18 [ History] Donepezil [Aricept] 5 mg PO BEDTIME 10/28/18 [History] Rasagiline Mesylate 1 mg PO DAILY 10/28/18 [History] hydroCHLOROthiazide [Hydrochlorothiazide] 25 mg PO DAILY 10/28/18 [History] Benztropine [Cogentin] 1 mg PO BID tablet 11/10/18 [Rx] Cyclobenzaprine [Flexeril] 5 mg PO TID tablet 11/10/18 [Rx] Patient Handouts: Subdural Hematoma, Parkinson Disease, [id number], Dementia , [id number] Referrals: Yasir Alvarez MD [Primary Care Provider] - (patient needs to follow up with primary care provider after discharge) - General Info Date of Service: 11/11/18 Admission Dx/Problem (Free Text: Admission Diagnosis/Problem Admission Diagnosis/Problem Failure to thrive in adult Subjective Update: Олег had pretty good night last night. He slept through most of the night. He did have a mild episode of restlessness just prior to his haldol dose and when his brief was wet. He has been resting this AM. Functional Status: Reports: Pain Controlled, Tolerating Diet, Urinating. Denies : Ambulating, New Symptoms - Review of Systems General: Denies: Fever Pulmonary: Denies: Cough Gastrointestinal: Denies: Diarrhea, Vomiting Genitourinary: Reports: Incontinence Skin: Denies: Cyanosis Neurological: Reports: Confusion, Difficulty Walking, Gait Disturbance Systems Review Comment: Unable to obtain ROS due to confusion and uncooperative nature of patient. - Patient Data Vitals - Most Recent: Last Vital Signs Temp 97.9 F 11/11/18 05:58 Pulse 78 11/11/18 05:58 Resp 18 11/11/18 05:58 BP 107/70 11/11/18 05:58 Pulse Ox 100 11/11/18 05:58 I&O - Last 24 hours: Intake & Output 11/10/18 11/10/18 11/11/18 14:59 22:59 06:59 Intake Total 0 300 240 Output Total 150 Balance 0 150 240 Med Orders - Current: Current Medications Acetaminophen (Tylenol) 650 mg PO Q4H PRN PRN Reason: Pain (Mild 1-3)/fever Last Admin: 11/10/18 10:11 Dose: 650 mg Allopurinol (Zyloprim) 100 mg PO BID [facility] Last Admin: 11/10/18 21:56 Dose: 100 mg Benztropine Mesylate (Cogentin) 1 mg PO BID [facility] Last Admin: 11/10/18 21:53 Dose: 1 mg Bisacodyl (Dulcolax) 5 mg PO DAILY PRN PRN Reason: Constipation Calcitriol (Rocaltrol) 0.25 mcg PO SuTh@0900 [facility] Last Admin: 11/07/18 12:51 Dose: 0.25 mcg Carbidopa/Levodopa (Sinemet 25-100 Mg) 1.5 tab PO 0700,1100,1500 [facility] Last Admin: 11/11/18 06:12 Dose: Not Given Carbidopa/Levodopa (Sinemet 25-100 Mg) 1.5 tab PO 1900,2300 [facility] Last Admin: 11/10/18 21:59 Dose: 1.5 tab Cholecalciferol (Vitamin D3) 2,000 units PO DAILY [facility] Last Admin: 11/10/18 10:20 Dose: 2,000 units Cyclobenzaprine HCl (Flexeril) 5 mg PO TID [facility] Last Admin: 11/10/18 21:53 Dose: 5 mg Docusate Sodium (Colace) 100 mg PO BID PRN PRN Reason: Constipation Last Admin: 10/31/18 08:28 Dose: 100 mg Donepezil HCl (Aricept) 5 mg PO BEDTIME [facility] Last Admin: 11/10/18 21:56 Dose: 5 mg Haloperidol Lactate (Haldol) 1 mg IVPUSH Q8H [facility] Last Admin: 11/11/18 06:01 Dose: 1 mg Hydralazine HCl (Apresoline) 10 mg PO Q6H PRN PRN Reason: Hypertension Hydrochlorothiazide (Hydrochlorothiazide) 25 mg PO DAILY [facility] Last Admin: 11/10/18 10:17 Dose: 25 mg Promethazine HCl 6.25 mg/ (Sodium Chloride) 50.25 mls @ 100 mls/hr IV Q6H PRN PRN Reason: Nausea/Vomiting Lorazepam (Ativan) 2 mg IVPUSH Q8H PRN PRN Reason: Anxiety Last Admin: 11/08/18 22:05 Dose: 2 mg Magnesium Hydroxide (Milk Of Magnesia) 30 ml PO Q12H PRN PRN Reason: Constipation Last Admin: 11/10/18 18:28 Dose: 30 ml Metoprolol Tartrate (Lopressor) 25 mg PO BID [facility] Last Admin: 11/10/18 21:55 Dose: 25 mg Pantoprazole Sodium (Protonix) 40 mg PO ACBREAKFAST [facility] Last Admin: 11/11/18 06:12 Dose: Not Given Rasagiline Mesylate [Azilect] 1 Mg*Pt Own Med* 0 each PO DAILY [facility] Last Admin: 11/10/18 10:12 Dose: 1 each Polyethylene Glycol (Miralax) 17 gm PO DAILY PRN PRN Reason: Constipation Promethazine HCl (Phenergan) 25 mg PO Q6H PRN PRN Reason: Nausea/Vomiting Rosuvastatin Calcium (Crestor) 40 mg PO DAILY [facility] Last Admin: 11/10/18 10:17 Dose: 40 mg Senna/Docusate Sodium (Senna Plus) 1 tab PO BID PRN PRN Reason: Constipation Last Admin: 11/07/18 15:26 Dose: 1 tab Tamsulosin HCl (Flomax) 0.4 mg PO DAILY [facility] Last Admin: 11/10/18 10:11 Dose: 0.4 mg Thiamine HCl (Vitamin B-1) 100 mg PO DAILY [facility] Last Admin: 11/10/18 10:15 Dose: 100 mg Vit A/Vit C/Vit E/Selen/Cu/Zn/Lutei (Icaps Mv) 1 tab PO DAILY [facility] Last Admin: 11/10/18 10:25 Dose: 1 tab Discontinued Medications Acetaminophen (Tylenol) 650 mg RECTAL NOW ONE Stop: 11/09/18 03:41 Last Admin: 11/09/18 04:05 Dose: Not Given Benztropine Mesylate (Cogentin) 1 mg PO ONETIME ONE Stop: 11/02/18 17:49 Last Admin: 11/02/18 18:49 Dose: 1 mg Calcitriol (Rocaltrol) 0.25 mcg PO ASDIRECTED [facility] Carbidopa/Levodopa (Sinemet 25-100 Mg) 1.5 tab PO ONETIME ONE Stop: 10/28/18 20:31 Last Admin: 10/28/18 21:38 Dose: 1.5 tab Cyclobenzaprine HCl (Flexeril) 10 mg PO TID PRN PRN Reason: Muscle Spasm Last Admin: 10/30/18 16:30 Dose: 10 mg Donepezil HCl (Aricept) 5 mg PO ONETIME ONE Stop: 10/28/18 20:31 Last Admin: 10/28/18 21:39 Dose: 5 mg Haloperidol Lactate (Haldol) 2.5 mg IM Q8H PRN PRN Reason: Disruptive behavior Last Admin: 10/31/18 10:33 Dose: 2.5 mg Haloperidol Lactate (Haldol) Confirm Administered Dose 5 mg .ROUTE .STK-MED ONE Stop: 10/30/18 16:54 Last Admin: 10/30/18 17:30 Dose: Not Given Haloperidol Lactate (Haldol) 2.5 mg IM ONETIME ONE Stop: 10/30/18 17:04 Last Admin: 10/30/18 17:06 Dose: 2.5 mg Haloperidol Lactate (Haldol) 2.5 mg IVPUSH ONETIME ONE Stop: 10/30/18 17:13 Last Admin: 10/30/18 17:30 Dose: Not Given Haloperidol Lactate (Haldol) 2.5 mg IM ONETIME ONE Stop: 10/30/18 17:13 Last Admin: 10/30/18 17:14 Dose: 2.5 mg Haloperidol Lactate (Haldol) 5 mg IM Q6H PRN PRN Reason: Disruptive behavior Haloperidol Lactate (Haldol) 2.5 mg IM ONETIME ONE Stop: 10/31/18 10:49 Last Admin: 10/31/18 11:03 Dose: Not Given Haloperidol Lactate (Haldol) 2.5 mg IM Q6H PRN PRN Reason: Disruptive behavior Last Admin: 11/01/18 04:31 Dose: 2.5 mg Haloperidol Lactate (Haldol) 2 mg IM ONETIME ONE Stop: 11/05/18 22:27 Last Admin: 11/05/18 22:33 Dose: 2 mg Haloperidol Lactate (Haldol) 3 mg IVPUSH Q12H [facility] Last Admin: 11/07/18 15:25 Dose: 3 mg Haloperidol Lactate (Haldol) 3 mg IVPUSH Q12H [facility] Last Admin: 11/08/18 05:31 Dose: Not Given Sodium Chloride (Normal Saline) 500 mls @ 999 mls/hr IV .BOLUS ONE Stop: 11/02/18 09:17 Last Admin: 11/02/18 09:06 Dose: 999 mls/hr Lisinopril (Prinivil) 5 mg PO DAILY [facility] Last Admin: 11/06/18 08:10 Dose: 5 mg Lorazepam (Ativan) 0.25 mg IVPUSH ONETIME ONE Stop: 11/04/18 08:26 Last Admin: 11/04/18 08:30 Dose: 0.5 mg Lorazepam (Ativan) 0.25 mg IVPUSH ONETIME ONE Stop: 11/05/18 21:36 Last Admin: 11/05/18 21:46 Dose: 0.25 mg Lorazepam (Ativan) 0.5 mg PO Q4H PRN PRN Reason: Agitation Magnesium Sulfate (Pharmacy To Dose - Magnesium Replacement) 0 dose .XX ASDIRECTED PRN PRN Reason: RX TO WATCH MAG Potassium Chloride (Pharmacy To Dose - Potassium Replacement) 0 dose .XX ASDIRECTED PRN PRN Reason: RX TO WATCH K Potassium Chloride (Klor-Con M20) 40 meq PO BID [facility] Stop: 10/28/18 21:01 Last Admin: 10/28/18 21:45 Dose: Not Given Potassium Chloride (Klor-Con M20) 40 meq PO ONETIME ONE Stop: 10/29/18 10:46 Last Admin: 10/29/18 10:48 Dose: 40 meq Quetiapine Fumarate (Seroquel) 25 mg PO Q6H PRN PRN Reason: Disruptive Behavior Last Admin: 10/31/18 02:45 Dose: 25 mg Quetiapine Fumarate (Seroquel) 12.5 mg PO DAILY@1400 [facility] Last Admin: 11/02/18 13:28 Dose: 12.5 mg Tramadol HCl (Ultram) 50 mg PO Q6H [facility] Last Admin: 10/31/18 02:11 Dose: 50 mg Tramadol HCl (Ultram) 50 mg PO ONETIME ONE Stop: 10/30/18 20:31 Last Admin: 10/30/18 20:26 Dose: 50 mg Tramadol HCl (Ultram) 50 mg PO Q6H PRN PRN Reason: Pain - Exam Quality Assessment: Reports: DVT Prophylaxis General: Reports: No Acute Distress, Sedated HEENT: Reports: Mucous Membr. Moist/[place] Neck: Reports: Supple, Trachea Midline, No JVD Lungs: Reports: Clear to Auscultation, Normal Respiratory Effort Cardiovascular: Reports: Regular Rate, Regular Rhythm GI/Abdominal Exam: Normal Bowel Sounds, Soft, Non-Tender, No Organomegaly, No Distention (Male) Exam: Deferred Rectal (Males) Exam: Deferred Extremities: Normal Inspection, Normal Range of Motion, Non-Tender, No Pedal Edema, Normal Capillary Refill Skin: Reports: Warm, Dry, Intact Neurological: Reports: No New Focal Deficit Psy/Mental Status: Reports: Alert, Normal Affect, Normal Mood <Matilda Goncalves - Last Filed: 11/11/18 21:48> Discharge Summary - Hospital Course HPI Initial Comments: According to the patient's daughter, the patient has a history of both Parkinson disease and Alzheimer dementia. He has been falling nearly daily for the past 6 months, and daily for the past 2-3 weeks. He sometimes suffers skin tears. He fell again today, but appears to be uninjured. The daughter states that arrangements have been made for the patient to go [place] [facility] [place] [facility] [place], however, some additional paperwork to have Medicaid pay for it still needs to be done. The patient's daughter does not feel , however, that the patient can safely remain at home any longer. She cannot say specifically why she brought her father to the ED today, as opposed to yesterday or the day before, only that she does not feel that he can remain at home any longer. The patient's PCP is Dr. Alvarez. The patient's Neurologist is Dr. Carlin. Diagnosis: Stroke: No - Discharge Data Discharge Date: 11/11/18 (ADMIT 10/27/18) - Discharge Diagnosis/Problem(s) (1) Acute on chronic intracranial subdural hematoma SNOMED Code(s): 64316667 ICD Code: I62.01 - NONTRAUMATIC ACUTE SUBDURAL HEMORRHAGE; I62.03 - NONTRAUMATIC CHRONIC SUBDURAL HEMORRHAGE Status: Acute Priority: High (2) Dementia SNOMED Code(s): 18788561 ICD Code: F03.90 - UNSPECIFIED DEMENTIA WITHOUT BEHAVIORAL DISTURBANCE Status: Chronic Priority: Medium Qualifiers: Dementia type: Alzheimer's disease Alzheimer's disease onset: unspecified onset Dementia behavioral disturbance: without behavioral disturbance Qualified Code(s): G30.9 - Alzheimer's disease, unspecified; F02.80 - Dementia in other diseases classified elsewhere without behavioral disturbance (3) Failure to thrive in adult SNOMED Code(s): 848176726 ICD Code: R62.7 - ADULT FAILURE TO THRIVE Status: Acute Priority: High (4) Fall at home SNOMED Code(s): 62381208 ICD Code: W19.XXXA - UNSPECIFIED FALL, INITIAL ENCOUNTER; Y92.009 - UNSP PLACE IN UNSP NON-INSTITUT (PRIVATE) RESIDENCE PLACE Status: Acute Priority: High Qualifiers: Encounter type: initial encounter Qualified Code(s): W19.XXXA - Unspecified fall, initial encounter; Y92.009 - Unspecified place in unspecified non-institutional (private) residence as the place of occurrence of the external cause (5) Parkinson disease SNOMED Code(s): 10208092 ICD Code: G20 - PARKINSON'S DISEASE Status: Chronic Priority: Medium - Patient Summary/Data Operative Procedure(s) Performed: none Complications: none Consults: Consultations 10/27/18 21:52 Consult to Case Management/Tube Puller [CONS] Routine OT Evaluation and Treatment [CONS] Routine PT Evaluation and Treatment [CONS] Routine 10/30/18 18:38 Consult to Physician [CONS] Routine Labs Pending at D/C: none Recommended Follow-up Testing/Procedures: F/U with PCP for further care F/U with neurology for subdural hematoma Planned Operative Procedure(s) after DC: none Hospital Course: Assessment/Plan: Acute: Agitation with Disruptive/Aggressive Behaviors, Uncontrolled -At this point, I firmly believed this is related to his Severe Alzheimer's Dementia and Parkinson's Disease/Parkinsonian Features -These behaviors were exhibited prior to the administration of the anti- psychotics medications; in fact it was our last resort -On Aricept 5 mg po QHS and Sinemet 1.5 tab 0700 QID (0700, 1100, 1900 and 2300) for home maintenance medications -Failed conservative management; failed trial of Seroquel -Good response to low dose Haldol but Dr. Odell is not in favor of using it and so do I: -Dr. Odell recommends restarting Haldol--> 3mg BID--> 1mg Q8H -Currently on 1mg Cogentin BID and Sundowning Prevention/Behavior Modification Techniques -He had 2 episode last night and this morning; he responded to low dose Ativan x1 in AM (avoided anti-psychotic medications) -Episodes getting worse and have now needed to start Haldol per Dr. Odell -Dr. Odell continues to follow him -Continue Sundowning Prevention -SW/CM to assess for possible change in placement status Subdural Hematoma, Stable -Acute on Chronic (chronic portion appears to have occurred after previous CT on 08/07/2018) -Risk Factor: Parkinson's, Falls nearly daily x 6 months, daily x 2-3 weeks -CT head in ED: 1. Acute subdural hematoma superimposed upon chronic left-sided subdural hematoma. This is an interval change from prior head CT study. This finding causes mild midline shift of approximately 7 mm. Thickness of the subdural collection is approximately 1 cm. 2. Senescent change as noted above which is similar to prior head CT study. 3. Increasing mucosal thickening within the paranasal sinuses most likely due to worsening chronic sinusitis. -Case discussed with Dr. Matamoros, Neurosurgeon at [facility] in ED: Pt not good candidate for neurosurgery--> Pt would likely have difficulty w/ anesthesia and wouldn't be able to participate meaningfully w/ his recovery Majority of the blood seems to be old Most important thing is to keep pt from falling and hitting his head -Repeat CT scan 11/10/18: Subacute left-sided subdural hematoma without acute hemorrhage. This subdural hematoma has slightly increased in thickness from prior exam as well as slight increased midline shift (about 1mm) to the right side from prior exam. -Fall precautions; Up with assistance Confusion, Improved -2/2 Cogentin plus Flexeril--> Anticholinergic and Sedation/Drowsiness -Aspiration and Fall Precaution -He did not get his Cogentin last night; he was up all night and woke up agitated/disruptive this AM Resolved: S/p Watery Diarrhea -C. Diff negative on screening -He is not getting antibiotics or diabetics oral agents -Suspect 2/2 stress -Monitor S/p Renal Insufficiency -2/2 GI Loss form Diarrhea and Inadequate oral intake -IV Bolus with 1L NS; will avoid maintenance as he pulls IV access out -May repeat labs this afternoon -Advised staff to encourage patient to drink fluids S/p Failure to Thrive, Not true in my opinion -Patient looks healthy and in good shape -What perceives as "failure to thrive" is due to his underlying disease(s) taking its natural course as noted below -Risk Factors: Alzheimer's Dementia and Parkinson's Disease -Falls nearly daily x 6 months, daily x 2-3 weeks -Pt is set up to go to [facility], awaiting Medicaid paperwork--> [facility] has now declined placement -The pt's daughter doesn't feel he can safely remain at home any longer -CM/SW--> working on placement S/p QT Prolongation, Likely Resolved at this point -EKG on 10/30/2018 at 1741 shows sinus rhythm with QTc of 436--> EKG this AM shows sinus rhythm with QT of 468; corrected QT is 560 -EKG this AM 11/03/2018 at 1309 shows sinus rhythm with QTc of 444 (< or equal to 430 for men)-almost at normal range -He is no longer on any anti-psychotic medications except for Aricept and Sinemet; this could be his new baseline -Continue telemetry and monitor e-lytes (all normal this AM) Chronic: Alzheimer's Dementia Parkinson's AAA s/p graft HTN HLD GERD BPH Arthritis Back pain Gout Plan: Will schedule Haldol with prn Ativan, dementia with psychotic features Hemodynamically stable Routine AM Labs as needed CM/SW for placement--> At this point, as he is medically stable, he will likely need to be committed as he has not improved with medical intervention Aspiration/Fall Precautions Continue Prevention DVT/GI prophylaxis Code Status: DNR/DNI; PCP: Dr. Alvarez The patient's Neurologist is Dr. Carlin SW able to get acceptance from Dr. Mathew at [facility]. Discussed case with Dr. Bhanu Engel. He will be transferred tomorrow at 0630 ([place]). Олег was originally admitted for observation of subdural hematoma and SNF placement, as his daughter could no longer take care of him at home. However, with his increased agitation and confusion, we were unable to find placement for him. After discussing the case with Dr. Matamoros, Neurosurgeon at [facility] in ED, it was found that the pt would not be a good candidate for neurosurgery (would likely have difficulty w/ anesthesia and wouldn't be able to participate meaningfully w/ his recovery). Per the neurosurgon, the majority of the blood seems to be old and the most important thing is to keep pt from falling and hitting his head. Repeat CT scan in 1 week was recommended, which he had here, which showed a slight (1mm) increased midline shift, otherwise stable. Recommend f/u with PCP and neurology for further workup if deemed necessary. At this time, he is medically stable and it was recommended by psychiatrist Dr. Odell that he be placed in SNF (which we were unable to do) or at [facility] as "pt would be appropriate for this kind of setting given the severity of his dementia process and Parkinson's condition, and it is my understanding that there is an Alzheimer's unit at that facility". After being denied twice at [facility], he has now been committed d/t his severe agitation, confusion, and disruptive/aggressive behaviors and accepted by Dr. Mathew. He will be transported to [facility] tomorrow morning at 0630 [place]. Report was called and given to auctioneer art doctor, Dr. Bhanu Engel. - Patient Instructions Diet: Heart Healthy Diet, Mechanical Soft Diet, Other: Honey thick liquds Activity, Other: Up with assistance Driving: Do Not Drive Showering/Bathing: May Shower Notify Provider of: Fever, Increased Pain, Nausea and/or Vomiting - Discharge Plan *PRESCRIPTION DRUG MONITORING PROGRAM REVIEWED*: Not Applicable *COPY OF PRESCRIPTION DRUG MONITORING REPORT IN PATIENT TRE: Not Applicable Oxygen Therapy Mode: Room Air - Discharge Summary/Plan Comment DC Time >30 min.: Yes (40) - Patient Data Vitals - Most Recent: Last Vital Signs Temp 98.2 F 11/10/18 15:16 Pulse 72 11/10/18 15:16 Resp 18 11/10/18 15:16 BP 106/62 11/10/18 15:16 Pulse Ox 99 11/10/18 15:16 Weight - Most Recent: 156 lb 1.6 oz I&O - Last 24 hours: Intake & Output 11/10/18 11/10/18 11/10/18 06:59 14:59 22:59 Intake Total 1540 0 300 Output Total 125 150 Balance 1415 0 150 Med Orders - Current: Current Medications Acetaminophen (Tylenol) 650 mg PO Q4H PRN PRN Reason: Pain (Mild 1-3)/fever Last Admin: 11/10/18 10:11 Dose: 650 mg Allopurinol (Zyloprim) 100 mg PO BID [facility] Last Admin: 11/10/18 10:15 Dose: 100 mg Benztropine Mesylate (Cogentin) 1 mg PO BID [facility] Last Admin: 11/10/18 10:10 Dose: 1 mg Bisacodyl (Dulcolax) 5 mg PO DAILY PRN PRN Reason: Constipation Calcitriol (Rocaltrol) 0.25 mcg PO SuTh@0900 [facility] Last Admin: 11/07/18 12:51 Dose: 0.25 mcg Carbidopa/Levodopa (Sinemet 25-100 Mg) 1.5 tab PO 0700,1100,1500 [facility] Last Admin: 11/10/18 15:21 Dose: 1.5 tab Carbidopa/Levodopa (Sinemet 25-100 Mg) 1.5 tab PO 1900,2300 [facility] Last Admin: 11/10/18 18:31 Dose: 1.5 tab Cholecalciferol (Vitamin D3) 2,000 units PO DAILY [facility] Last Admin: 11/10/18 10:20 Dose: 2,000 units Cyclobenzaprine HCl (Flexeril) 5 mg PO TID [facility] Last Admin: 11/10/18 15:21 Dose: 5 mg Docusate Sodium (Colace) 100 mg PO BID PRN PRN Reason: Constipation Last Admin: 10/31/18 08:28 Dose: 100 mg Donepezil HCl (Aricept) 5 mg PO BEDTIME [facility] Last Admin: 11/09/18 19:59 Dose: 5 mg Haloperidol Lactate (Haldol) 1 mg IVPUSH Q8H [facility] Last Admin: 11/10/18 15:14 Dose: 1 mg Hydralazine HCl (Apresoline) 10 mg PO Q6H PRN PRN Reason: Hypertension Hydrochlorothiazide (Hydrochlorothiazide) 25 mg PO DAILY [facility] Last Admin: 11/10/18 10:17 Dose: 25 mg Promethazine HCl 6.25 mg/ (Sodium Chloride) 50.25 mls @ 100 mls/hr IV Q6H PRN PRN Reason: Nausea/Vomiting Lorazepam (Ativan) 2 mg IVPUSH Q8H PRN PRN Reason: Anxiety Last Admin: 11/08/18 22:05 Dose: 2 mg Magnesium Hydroxide (Milk Of Magnesia) 30 ml PO Q12H PRN PRN Reason: Constipation Last Admin: 11/10/18 18:28 Dose: 30 ml Metoprolol Tartrate (Lopressor) 25 mg PO BID [facility] Last Admin: 11/10/18 10:20 Dose: 25 mg Pantoprazole Sodium (Protonix) 40 mg PO ACBREAKFAST [facility] Last Admin: 11/10/18 06:03 Dose: 40 mg Rasagiline Mesylate [Azilect] 1 Mg*Pt Own Med* 0 each PO DAILY [facility] Last Admin: 11/10/18 10:12 Dose: 1 each Polyethylene Glycol (Miralax) 17 gm PO DAILY PRN PRN Reason: Constipation Promethazine HCl (Phenergan) 25 mg PO Q6H PRN PRN Reason: Nausea/Vomiting Rosuvastatin Calcium (Crestor) 40 mg PO DAILY [facility] Last Admin: 11/10/18 10:17 Dose: 40 mg Senna/Docusate Sodium (Senna Plus) 1 tab PO BID PRN PRN Reason: Constipation Last Admin: 11/07/18 15:26 Dose: 1 tab Tamsulosin HCl (Flomax) 0.4 mg PO DAILY [facility] Last Admin: 11/10/18 10:11 Dose: 0.4 mg Thiamine HCl (Vitamin B-1) 100 mg PO DAILY [facility] Last Admin: 11/10/18 10:15 Dose: 100 mg Vit A/Vit C/Vit E/Selen/Cu/Zn/Lutei (Icaps Mv) 1 tab PO DAILY [facility] Last Admin: 11/10/18 10:25 Dose: 1 tab Discontinued Medications Acetaminophen (Tylenol) 650 mg RECTAL NOW ONE Stop: 11/09/18 03:41 Last Admin: 11/09/18 04:05 Dose: Not Given Benztropine Mesylate (Cogentin) 1 mg PO ONETIME ONE Stop: 11/02/18 17:49 Last Admin: 11/02/18 18:49 Dose: 1 mg Calcitriol (Rocaltrol) 0.25 mcg PO ASDIRECTED TANI Carbidopa/Levodopa (Sinemet 25-100 Mg) 1.5 tab PO ONETIME ONE Stop: 10/28/18 20:31 Last Admin: 10/28/18 21:38 Dose: 1.5 tab Cyclobenzaprine HCl (Flexeril) 10 mg PO TID PRN PRN Reason: Muscle Spasm Last Admin: 10/30/18 16:30 Dose: 10 mg Donepezil HCl (Aricept) 5 mg PO ONETIME ONE Stop: 10/28/18 20:31 Last Admin: 10/28/18 21:39 Dose: 5 mg Haloperidol Lactate (Haldol) 2.5 mg IM Q8H PRN PRN Reason: Disruptive behavior Last Admin: 10/31/18 10:33 Dose: 2.5 mg Haloperidol Lactate (Haldol) Confirm Administered Dose 5 mg .ROUTE .STK-MED ONE Stop: 10/30/18 16:54 Last Admin: 10/30/18 17:30 Dose: Not Given Haloperidol Lactate (Haldol) 2.5 mg IM ONETIME ONE Stop: 10/30/18 17:04 Last Admin: 10/30/18 17:06 Dose: 2.5 mg Haloperidol Lactate (Haldol) 2.5 mg IVPUSH ONETIME ONE Stop: 10/30/18 17:13 Last Admin: 10/30/18 17:30 Dose: Not Given Haloperidol Lactate (Haldol) 2.5 mg IM ONETIME ONE Stop: 10/30/18 17:13 Last Admin: 10/30/18 17:14 Dose: 2.5 mg Haloperidol Lactate (Haldol) 5 mg IM Q6H PRN PRN Reason: Disruptive behavior Haloperidol Lactate (Haldol) 2.5 mg IM ONETIME ONE Stop: 10/31/18 10:49 Last Admin: 10/31/18 11:03 Dose: Not Given Haloperidol Lactate (Haldol) 2.5 mg IM Q6H PRN PRN Reason: Disruptive behavior Last Admin: 11/01/18 04:31 Dose: 2.5 mg Haloperidol Lactate (Haldol) 2 mg IM ONETIME ONE Stop: 11/05/18 22:27 Last Admin: 11/05/18 22:33 Dose: 2 mg Haloperidol Lactate (Haldol) 3 mg IVPUSH Q12H [facility] Last Admin: 11/07/18 15:25 Dose: 3 mg Haloperidol Lactate (Haldol) 3 mg IVPUSH Q12H [facility] Last Admin: 11/08/18 05:31 Dose: Not Given Sodium Chloride (Normal Saline) 500 mls @ 999 mls/hr IV .BOLUS ONE Stop: 11/02/18 09:17 Last Admin: 11/02/18 09:06 Dose: 999 mls/hr Lisinopril (Prinivil) 5 mg PO DAILY [facility] Last Admin: 11/06/18 08:10 Dose: 5 mg Lorazepam (Ativan) 0.25 mg IVPUSH ONETIME ONE Stop: 11/04/18 08:26 Last Admin: 11/04/18 08:30 Dose: 0.5 mg Lorazepam (Ativan) 0.25 mg IVPUSH ONETIME ONE Stop: 11/05/18 21:36 Last Admin: 11/05/18 21:46 Dose: 0.25 mg Lorazepam (Ativan) 0.5 mg PO Q4H PRN PRN Reason: Agitation Magnesium Sulfate (Pharmacy To Dose - Magnesium Replacement) 0 dose .XX ASDIRECTED PRN PRN Reason: RX TO WATCH MAG Potassium Chloride (Pharmacy To Dose - Potassium Replacement) 0 dose .XX ASDIRECTED PRN PRN Reason: RX TO WATCH K Potassium Chloride (Klor-Con M20) 40 meq PO BID [facility] Stop: 10/28/18 21:01 Last Admin: 10/28/18 21:45 Dose: Not Given Potassium Chloride (Klor-Con M20) 40 meq PO ONETIME ONE Stop: 10/29/18 10:46 Last Admin: 10/29/18 10:48 Dose: 40 meq Quetiapine Fumarate (Seroquel) 25 mg PO Q6H PRN PRN Reason: Disruptive Behavior Last Admin: 10/31/18 02:45 Dose: 25 mg Quetiapine Fumarate (Seroquel) 12.5 mg PO DAILY@1400 [facility] Last Admin: 11/02/18 13:28 Dose: 12.5 mg Tramadol HCl (Ultram) 50 mg PO Q6H [facility] Last Admin: 10/31/18 02:11 Dose: 50 mg Tramadol HCl (Ultram) 50 mg PO ONETIME ONE Stop: 10/30/18 20:31 Last Admin: 10/30/18 20:26 Dose: 50 mg Tramadol HCl (Ultram) 50 mg PO Q6H PRN PRN Reason: Pain
[2018-11-10] MEDS: Donepezil 10 MG Tab PO SCH (21:56)
[2018-11-11] MEDS: Haloperidol Lactate 5 MG/ML SDV IVPUSH SCH (06:01)
[2018-11-11] MEDS: Pantoprazole 40 MG Tab.CR PO SCH (06:12)
[2018-11-11] MEDS: Carbidopa/Levodopa 25-100 MG Tab PO SCH (06:12)
[2018-11-12 13:11] VITALS: BP 109/61
== END 2018-11-11 07:01 | disposition swing bed (61) | DRG 86 ==
LOC: JD.ED 16:29 → JD.MS 20:49
PROVIDERS: ADMIT Internal Medicine; ATTEND Internal Medicine
DX: S06.5X0A Traumatic subdural hemorrhage without loss of consciousness, initial encounter (principal); F05 Delirium due to known physiological condition; R62.7 Adult failure to thrive; F02.81 Dementia in other diseases classified elsewhere, unspecified severity, with behavioral disturbance; R40.0 Somnolence; W19.XXXA Unspecified fall, initial encounter; R29.6 Repeated falls; G20 Parkinson's disease; G30.9 Alzheimer's disease, unspecified; E78.00 Pure hypercholesterolemia, unspecified; I10 Essential (primary) hypertension; K21.9 Gastro-esophageal reflux disease without esophagitis; N40.0 Benign prostatic hyperplasia without lower urinary tract symptoms; M19.90 Unspecified osteoarthritis, unspecified site; M54.9 Dorsalgia, unspecified; G89.29 Other chronic pain; M10.9 Gout, unspecified; F02.80 Dementia in other diseases classified elsewhere, unspecified severity, without behavioral disturbance, psychotic disturbance, mood disturbance, and anxiety; Z79.82 Long term (current) use of aspirin; Z79.899 Other long term (current) drug therapy; Z87.891 Personal history of nicotine dependence; Z66 Do not resuscitate; T44.3X5A Adverse effect of other parasympatholytics [anticholinergics and antimuscarinics] and spasmolytics, initial encounter; T48.1X5A Adverse effect of skeletal muscle relaxants [neuromuscular blocking agents], initial encounter; R19.7 Diarrhea, unspecified; N28.9 Disorder of kidney and ureter, unspecified; I45.81 Long QT syndrome; H91.90 Unspecified hearing loss, unspecified ear; G25.71 Drug induced akathisia
CPT/HCPCS: 36415; 70450; 70450-26; 80048; 81001; 83605; 83735; 85025; 86140; 87493; 93005; 97110-GO; 97116-GP; 97161-GP; 97167-GO; 97530-GO; 97530-GP; 99285; A9270-GY; J1630; J2060; J7040